=== PATIENT | male | born 1955 | race Caucasian/White ===

== ENCOUNTER 2021-12-13 23:40 | Emergency (ER) | payer MEDICARE, BC ==
[2021-12-14] MEDS ORDERED: ONDANSETRON 4 MG/2 ML VIAL IVP STA (00:03)
[2021-12-14] MEDS ORDERED: SODIUM CHLORIDE 0.9% 1,000 ML IV STA ×2 (00:03)
--- NOTE | 2021-12-14 00:16 | ED ---
Fall HPI - General Chief Complaint: Fall Stated Complaint: Hip Pain Time Seen by Provider: 12/13/21 23:51 Source: patient, EMS, RN notes reviewed, old records reviewed Mode of arrival: EMS - History of Present Illness Initial Comments: This is a 66-year-old male he is presented today for evaluation regards to fall. Patient fell slipping on ice outside prior to arrival. Severe left leg pain and left hip pain. Patient does admit to some mild alcohol use today. Patient has no other complaints his head no loss of consciousness is awake and alert. No prior history of fractures or broken bones as a prior NH but has no other significant medical history MD Complaint: fall, other (Left hip pain) -: minutes(s) Fall From: standing When Fall Occurred: 1 hour [employer] TECH[employer] Fall Witnessed: yes, by family Place Fall Occurred: home Loss of Consciousness: none Prolonged Down Time?: no Symptoms Prior to Fall: none Location - Extremities: Left: Thigh Severity: severe Severity scale (1-10): 9 Quality: sharp Context: tripped/slipped, alcohol use Associated Symptoms: denies - Related Data Allergies Allergy/AdvReac Type Severity Reaction Status Date / Time No Known Allergies Allergy Verified 12/13/21 23:49 Review of Systems ROS Statement: Those systems with pertinent positive or pertinent negative responses have been documented in the HPI. ROS Other: All systems not noted in ROS Statement are negative. Past Medical History Past Medical History: Myocardial Infarction ([place]) History of Any Multi-Drug Resistant Organisms: None Reported Additional Past Surgical History / Comment(s): knee left Past Psychological History: No Psychological Hx Reported Smoking Status: Current every day smoker Past Alcohol Use History: Occasional General Exam Limitations: physical limitation General appearance: alert, in no apparent distress Head exam: Present: atraumatic, normocephalic, normal inspection Eye exam: Present: normal appearance, PERRL, EOMI. Absent: scleral icterus, conjunctival injection, periorbital swelling ENT exam: Present: normal exam, mucous membranes moist Neck exam: Present: normal inspection. Absent: tenderness, meningismus, lymphadenopathy Respiratory exam: Present: normal lung sounds bilaterally. Absent: respiratory distress, wheezes, rales, rhonchi, stridor Cardiovascular Exam: Present: regular rate, normal rhythm, normal heart sounds. Absent: systolic murmur, diastolic murmur, rubs, gallop, clicks GI/Abdominal exam: Present: soft, normal bowel sounds. Absent: distended, tenderness, guarding, rebound, rigid Extremities exam: Present: normal inspection, full ROM, normal capillary refill. Absent: tenderness, pedal edema, joint swelling, calf tenderness Back exam: Present: normal inspection Neurological exam: Present: alert, oriented X3, CN II-XII intact Psychiatric exam: Present: normal affect, normal mood Skin exam: Present: warm, dry, intact, normal color. Absent: rash Course Vital Signs 12/13/21 12/14/21 23:49 01:33 Temperature 97.5 F L Pulse Rate 97 92 Respiratory 22 20 Rate Blood Pressure 103/76 154/92 O2 Sat by Pulse 92 L 98 Oximetry - Reevaluation(s) Reevaluation #1: 12/14/21 00:17 Medical record is reviewed 12/14/21 00:17 Patient refusing pain medication also refused pain medication from EMS Reevaluation #2: 12/14/21 01:50 Patient originally was not requiring pain medication but states pain started to get worse Pain now improved Reevaluation #3: 12/14/21 01:50 Patient informed of results and questions answered - Consultations Consultation #1: Spoke with [facility] regarding transfer, they do agree to accept transfer with orthopedics and the emergency department Medical Decision Making - Lab Data Result diagrams: 12/14/21 01:28 Lab Results 12/14/21 Range/Units 01:28 WBC 13.2 H (3.8-10.6) k/uL RBC 4.19 L (4.30-5.90) m/uL Hgb 14.0 (13.0-17.5) gm/dL Hct 41.9 (39.0-53.0) % MCV 100.1 H (80.0-100.0) fL MCH 33.5 (25.0-35.0) pg MCHC 33.5 (31.0-37.0) g/dL RDW 12.9 (11.5-15.5) % Plt Count 222 (150-450) k/uL MPV 7.4 Neutrophils % 87 % Lymphocytes % 9 % Monocytes % 3 % Eosinophils % 1 % Basophils % 0 % Neutrophils # 11.4 H (1.3-7.7) k/uL Lymphocytes # 1.1 (1.0-4.8) k/uL Monocytes # 0.4 (0-1.0) k/uL Eosinophils # 0.1 (0-0.7) k/uL Basophils # 0.0 (0-0.2) k/uL - EKG Data -: EKG Interpreted by Me (EKG is sinus rhythm of 91 MA 166 QRS 114 QTc 434) - Radiology Data Radiology results: report reviewed (Chest x-rays negative for acute disease x- ray left hip as well as computed tomography scan of left hip shows comminuted ac etabular fracture, displaced with hematoma), image reviewed Disposition Clinical Impression: Fall, Left acetabular fracture Disposition: OTHER INSTITUTION NOT DEFINED Condition: Good Is patient prescribed a controlled substance at d/c from ED?: No Referrals: Lizzette Coon MD [Primary Care Provider] - 1-2 days - Out of Hospital Transfer - Req. Specs Out of Hospital Transfer - Requested Specifics: Other Emergency Center ([facility])
--- NOTE | 2021-12-14 00:45 | XR ---
EXAMINATION TYPE: XR chest 1V DATE OF EXAM: 12/14/2021 COMPARISON: NONE HISTORY: Fall. Pain. TECHNIQUE: 2 views AP FINDINGS: Heart appears enlarged. There is no obvious heart failure. There is slight coarsening of in terstitial markings. There is no pleural effusion. IMPRESSION: Cardiomegaly. No acute lung disease.
--- NOTE | 2021-12-14 00:47 | XR ---
EXAMINATION TYPE: XR Hip LT and AP Pelvis DATE OF EXAM: 12/14/2021 COMPARISON: NONE HISTORY: Fall. Pain TECHNIQUE: 3 views FINDINGS: There is a fracture through the medial aspect of the left acetabulum. There is medial displ acement of the fragments 8 mm. The sacroiliac joints are intact. The proximal femurs show no fracture . IMPRESSION: Acute intra-articular fracture of the left acetabulum with medial displacement.
[2021-12-14 01:34] VITALS: PULSE 92
--- NOTE | 2021-12-14 01:41 | CT ---
EXAMINATION TYPE: CT pelvis wo con DATE OF EXAM: 12/14/2021 COMPARISON: None HISTORY: Trauma. Pain CT DLP: mGycm Automated exposure control for dose reduction was used. Images obtained from the iliac crest to the subtrochanteric femurs with no contrast. There is comminuted vertical fracture through the medial acetabulum. Fracture line extends through th e left iliac bone to the iliac crest. The sacroiliac joints appear intact. Fracture lines extend to t he articular surface of the left acetabulum. The proximal femurs are intact. There is nondisplaced fr acture left inferior pubic ramus. There is increased density in the left lateral aspect of the pelvis consistent with hematoma that is extraperitoneal and displacing the bladder to the right side. This measures up to 2.8 cm in thickness. IMPRESSION: Comminuted left acetabular fracture with intra-articular extension and fragment displacement up to 10 mm. There is extraperitoneal left pelvic sidewall hematoma. Fracture line also extending through the left iliac crest. Left inferior pubic ramus nondisplaced fracture.
[2021-12-14 01:42] LABS: Basophils % (A) 0 %; Eosinophils # (A) 0.1 k/uL (0-0.7); Eosinophils % (A) 1 %; HCT 41.9 % (39.0-53.0); Lymphocytes # (A) 1.1 k/uL (1.0-4.8); Lymphocytes % (A) 9 %; MCH 33.5 pg (25.0-35.0); MCHC 33.5 g/dL (31.0-37.0); MCV 100.1 fL (80.0-100.0); Mean Platelet Volume 7.4; Monocytes # (A) 0.4 k/uL (0-1.0); Monocytes % (A) 3 %; Neutrophils # (A) 11.4 k/uL (1.3-7.7); Neutrophils % (A) 87 %; Platelet Count 222 k/uL (150-450); RBC 4.19 m/uL (4.30-5.90); RDW 12.9 % (11.5-15.5); WBC 13.2 k/uL (3.8-10.6)
[2021-12-14] MEDS ORDERED: HYDROmorphone 1 MG/ML 1 ML SYRINGE IVP STA ×2 (01:46→02:37)
[2021-12-14 01:53] LABS: ALT 23 U/L (4-49); AST 31 U/L (17-59); African American GFR (CKD) >90 (>60 ml/min/1.73 sqM); Alkaline Phosphatase 57 U/L (38-126); Anion Gap 8 mmol/L; Blood Urea Nitrogen 10 mg/dL (9-20); Calcium 8.1 mg/dL (8.4-10.2); Carbon Dioxide 25 mmol/L (22-30); Chloride 92 mmol/L (98-107); Glucose 101 mg/dL (74-99); INR 1.1 (<1.2); Magnesium 1.7 mg/dL (1.6-2.3); Non-African American GFR(CKD) >90 (>60 ml/min/1.73 sqM); Partial Thromboplastin Time 24.8 sec (22.0-30.0); Phosphorus 3.5 mg/dL (2.5-4.5); Prothrombin Time 11.8 sec (9.0-12.0); Sodium 125 mmol/L (137-145); Total Bilirubin 0.6 mg/dL (0.2-1.3)
[2021-12-14 01:58] LABS: Alcohol 198 mg/dL
[2021-12-14 02:58] VITALS: BP 112/62; RESP 22; TEMP 97.8
== END 2021-12-14 02:49 | disposition other institution (70) ==
LOC: EC 23:40
DX: S32.402A Unspecified fracture of left acetabulum, initial encounter for closed fracture (principal); F17.200 Nicotine dependence, unspecified, uncomplicated; I25.2 Old myocardial infarction; W00.0XXA Fall on same level due to ice and snow, initial encounter
CPT/HCPCS: 36415; 93005; 80053; 83605; 83735; 84100; 84484; 85025; 85610; 85730; 73502; 71045; 72192; 99285; 96374; 96375; 96376; 96361; G0480; J2405; J1170; 80320

== ENCOUNTER 2022-08-19 04:15 | Emergency (ER) | payer MEDICARE, BC ==
[2022-08-19 04:22] VITALS: RESP 16
--- NOTE | 2022-08-19 04:33 | ED ---
General Adult HPI - General Chief complaint: Wound/Laceration Stated complaint: leg bleed Time Seen by Provider: 08/19/22 04:19 Source: patient, EMS, RN notes reviewed, old records reviewed Mode of arrival: EMS Limitations: no limitations - History of Present Illness Initial comments: 66 yo male who presents for evaluation of varicose bleeding patient states he actually scratched a varicose vein on his right calf. He is on blood thinners oh states he was a significant amount of bleeding prior to arrival. Called 911, they were able to apply of pressure dressing and transported to the emergency department. Bleeding controlled at the time of arrival. - Related Data Allergies Allergy/AdvReac Type Severity Reaction Status Date / Time No Known Allergies Allergy Verified 12/13/21 23:49 Review of Systems ROS Statement: Those systems with pertinent positive or pertinent negative responses have been documented in the HPI. ROS Other: All systems not noted in ROS Statement are negative. Past Medical History Past Medical History: Myocardial Infarction ([place]) History of Any Multi-Drug Resistant Organisms: None Reported Additional Past Surgical History / Comment(s): knee left Past Psychological History: No Psychological Hx Reported Smoking Status: Current every day smoker Past Alcohol Use History: Occasional General Exam Limitations: no limitations General appearance: alert, in no apparent distress Head exam: Present: atraumatic, normocephalic Eye exam: Present: normal appearance, PERRL Neck exam: Present: normal inspection. Absent: tenderness, meningismus Respiratory exam: Present: normal lung sounds bilaterally. Absent: respiratory distress, wheezes Cardiovascular Exam: Present: regular rate, normal rhythm GI/Abdominal exam: Present: soft. Absent: distended, tenderness Extremities exam: Present: other (Right calf varicose vein with no active bleeding) Neurological exam: Present: alert, oriented X3, CN II-XII intact. Absent: motor sensory deficit Psychiatric exam: Present: normal affect, normal mood Skin exam: Present: warm, dry Course Vital Signs 08/19/22 08/19/22 04:18 04:22 Temperature 97.7 F 97.8 F Pulse Rate 76 78 Respiratory 16 16 Rate Blood Pressure 116/77 116/77 O2 Sat by Pulse 99 Oximetry Medical Decision Making - Medical Decision Making Per medics dressing removed, no further bleeding, patient observed in the emergency department. Dressing reapplied over the previous site of bleeding. Patient should follow-up with the primary care physician, return with any worsening or changing symptoms. Disposition Clinical Impression: Bleeding from varicose vein Disposition: HOME SELF-CARE Condition: Good Instructions (If sedation given, give patient instructions): Venous Insufficiency (DC) Is patient prescribed a controlled substance at d/c from ED?: No Referrals: Chet Diallo DO [Primary Care Provider] - 1-2 days Time of Disposition: 04:33
[2022-08-19 05:23] VITALS: BP 116/70
[2022-08-19 05:24] VITALS: PULSE 76; TEMP 98.1
== END 2022-08-19 05:28 | disposition home or self-care (01) ==
LOC: EC 04:15
DX: I83.91 Asymptomatic varicose veins of right lower extremity (principal)
CPT/HCPCS: 99283

== ENCOUNTER 2022-08-21 10:41 | Emergency (ER) | payer MEDICARE, BC ==
[2022-08-21 16:04] VITALS: TEMP 97.9
[2022-08-21 16:26] LABS: Albumin 4.4 g/dL (3.5-5.0); Calcium 9.2 mg/dL (8.4-10.2); Total Bilirubin 0.7 mg/dL (0.2-1.3); Total Protein 7.5 g/dL (6.3-8.2)
[2022-08-21 16:31] LABS: Basophils # (A) 0.1 k/uL (0-0.2); Basophils % (A) 1 %; Eosinophils # (A) 0.4 k/uL (0-0.7); Eosinophils % (A) 6 %; HCT 32.5 % (39.0-53.0); HGB 11.1 gm/dL (13.0-17.5); Lymphocytes # (A) 1.1 k/uL (1.0-4.8); Lymphocytes % (A) 15 %; MCHC 34.1 g/dL (31.0-37.0); Mean Platelet Volume 8.4; Monocytes # (A) 0.7 k/uL (0-1.0); Monocytes % (A) 9 %; Neutrophils # (A) 5.2 k/uL (1.3-7.7); Neutrophils % (A) 67 %; Platelet Count 170 k/uL (150-450); RBC 3.57 m/uL (4.30-5.90); RDW 14.7 % (11.5-15.5); WBC 7.7 k/uL (3.8-10.6)
--- NOTE | 2022-08-21 16:46 | ED ---
Extremity Problem HPI - General Chief complaint: Extremity Problem,Nontraumatic Source: patient Mode of arrival: ambulatory Limitations: no limitations - History of Present Illness Initial comments: Please see the paper chart that was started as this is a downtime patient - Related Data Home Medications Medication Instructions Recorded Confirmed Aspirin EC [Ecotrin Low Dose] 81 mg PO DAILY 08/22/22 08/22/22 Atorvastatin [Lipitor] 40 mg PO DAILY 08/22/22 08/22/22 Bumetanide [Bumex] 1 mg PO BID 08/22/22 08/22/22 Clopidogrel [Plavix] 75 mg PO DAILY 08/22/22 08/22/22 Isosorbide Mononitrate ER [Imdur] 30 mg PO DAILY 08/22/22 08/22/22 Losartan [Cozaar] 50 mg PO DAILY 08/22/22 08/22/22 Potassium Chloride [Potassium 10 meq PO DAILY 08/22/22 08/22/22 Chloride ER] Spironolactone [Aldactone] 25 mg PO DAILY 08/22/22 08/22/22 carvediloL [Coreg] 6.25 mg PO BID 08/22/22 08/22/22 Previous Rx's Medication Instructions Recorded HYDROcodone/APAP 5-325MG [[place] 1 tab PO Q4HR PRN 3 Days #18 tab 08/21/22 5-325] Allergies Allergy/AdvReac Type Severity Reaction Status Date / Time No Known Allergies Allergy Verified 08/22/22 12:07 Review of Systems ROS Statement: Those systems with pertinent positive or pertinent negative responses have been documented in the HPI. ROS Other: All systems not noted in ROS Statement are negative. Past Medical History Past Medical History: Myocardial Infarction ([place]) History of Any Multi-Drug Resistant Organisms: None Reported Additional Past Surgical History / Comment(s): knee left Past Psychological History: No Psychological Hx Reported Smoking Status: Current every day smoker Past Alcohol Use History: Occasional General Exam Limitations: no limitations Course Vital Signs 08/21/22 08/21/22 15:57 16:53 Temperature 97.9 F Pulse Rate 81 79 Respiratory 16 18 Rate Blood Pressure 87/64 125/63 O2 Sat by Pulse 97 96 Oximetry Medical Decision Making - Lab Data Result diagrams: 08/21/22 12:50 08/21/22 12:50 Lab Results 08/21/22 08/21/22 08/21/22 Range/Units 12:50 12:50 12:50 WBC 7.7 (3.8-10.6) k/uL RBC 3.57 L (4.30-5.90) m/uL Hgb 11.1 L (13.0-17.5) gm/dL Hct 32.5 L (39.0-53.0) % MCV 91.0 (80.0-100.0) fL MCH 31.0 (25.0-35.0) pg MCHC 34.1 (31.0-37.0) g/dL RDW 14.7 (11.5-15.5) % Plt Count 170 (150-450) k/uL MPV 8.4 Neutrophils % 67 % Lymphocytes % 15 % Monocytes % 9 % Eosinophils % 6 % Basophils % 1 % Neutrophils # 5.2 (1.3-7.7) k/uL Lymphocytes # 1.1 (1.0-4.8) k/uL Monocytes # 0.7 (0-1.0) k/uL Eosinophils # 0.4 (0-0.7) k/uL Basophils # 0.1 (0-0.2) k/uL Sodium 134 L (137-145) mmol/L Potassium 4.0 (3.5-5.1) mmol/L Chloride 95 L (98-107) mmol/L Carbon Dioxide 30 (22-30) mmol/L Anion Gap 9 mmol/L BUN 26 H (9-20) mg/dL Creatinine 1.02 (0.66-1.25) mg/dL Est GFR (CKD-EPI)AfAm 89 (>60 ml/min/1.73 sqM) Est GFR (CKD-EPI)NonAf 77 (>60 ml/min/1.73 sqM) Glucose 97 (74-99) mg/dL Plasma Lactic Acid David 1.1 (0.7-2.0) mmol/L Calcium 9.2 (8.4-10.2) mg/dL Total Bilirubin 0.7 (0.2-1.3) mg/dL AST 34 (17-59) U/L ALT 34 (4-49) U/L Alkaline Phosphatase 121 (38-126) U/L Total Protein 7.5 (6.3-8.2) g/dL Albumin 4.4 (3.5-5.0) g/dL Disposition Clinical Impression: Leg pain, Claudication Disposition: HOME SELF-CARE Condition: Good Instructions (If sedation given, give patient instructions): Leg Pain (ED) Prescriptions: HYDROcodone/APAP 5-325MG [[place] 5-325] 1 tab PO Q4HR PRN 3 Days #18 tab PRN Reason: Pain Is patient prescribed a controlled substance at d/c from ED?: No Referrals: Chet Diallo DO [Primary Care Provider] - 1-2 days Daniel Garcia DO [STAFF PHYSICIAN] - 1-2 days
[2022-08-21 16:55] VITALS: BP 125/63; PULSE 79; RESP 18
--- NOTE | 2022-08-22 08:08 | US ---
EXAMINATION TYPE: US arterial LE multi level DATE OF EXAM: 08/21/2022 2:53 PM CLINICAL HISTORY: Claudication pain. Claudication pain in right leg. Previous smoker, hx hypertension , hyperlipidemia, myocardial infarction at 39 years old with cardiac procedure, heart valve surgery i n May 2022, rest pain in legs. No prior vascular surgery within the legs. Exam is limited due to pt's pain level. Ankle-Brachial Indices: Right: 0.28 Left: 0.50 Toe Brachial Indices: Right: Waveform not definitely seen. Left: Unable to perform left TBI due to pain. Waveform shown. Faint possible Right DP heard, unable to show Right DP waveform. Unable to obtain Left DP pressure due to movement. Left DP waveform shown. Left brachial deferred due to IV. Limitations right popliteal waveform due to movement. IMPRESSION: Brachial brachial indices indicating severe peripheral vascular disease, right [place] left.
== END 2022-08-21 16:56 | disposition home or self-care (01) ==
LOC: EC 10:41
DX: M79.606 Pain in leg, unspecified (principal); I73.9 Peripheral vascular disease, unspecified; I25.2 Old myocardial infarction; F17.200 Nicotine dependence, unspecified, uncomplicated; Z79.899 Other long term (current) drug therapy
CPT/HCPCS: 36415; 80053; 83605; 85025; 93923; 99283

== ENCOUNTER 2022-08-22 07:42 | Inpatient (IN) | payer MEDICARE, BC ==
[2022-08-22] MEDS ORDERED: KETOROLAC 15 MG/ML 1 ML VIAL IVP STA (07:58)
[2022-08-22 08:25] LABS: Albumin 4.3 g/dL (3.5-5.0); Calcium 8.7 mg/dL (8.4-10.2); Potassium 4.4 mmol/L (3.5-5.1); Total Bilirubin 0.5 mg/dL (0.2-1.3); Total Protein 7.2 g/dL (6.3-8.2)
[2022-08-22 08:30] LABS: Basophils % (A) 1 %; Eosinophils # (A) 0.4 k/uL (0-0.7); Eosinophils % (A) 6 %; HCT 31.3 % (39.0-53.0); HGB 10.9 gm/dL (13.0-17.5); Lymphocytes # (A) 1.1 k/uL (1.0-4.8); Lymphocytes % (A) 15 %; MCH 31.8 pg (25.0-35.0); MCHC 34.7 g/dL (31.0-37.0); MCV 91.7 fL (80.0-100.0); Mean Platelet Volume 8.4; Monocytes # (A) 0.8 k/uL (0-1.0); Monocytes % (A) 11 %; Neutrophils # (A) 4.8 k/uL (1.3-7.7); Neutrophils % (A) 65 %; Platelet Count 174 k/uL (150-450); RBC 3.42 m/uL (4.30-5.90); RDW 14.6 % (11.5-15.5); WBC 7.3 k/uL (3.8-10.6)
--- NOTE | 2022-08-22 08:35 | ED ---
General Adult HPI - General Chief complaint: Extremity Problem,Nontraumatic Stated complaint: Leg pain, revisit Time Seen by Provider: 08/22/22 07:45 Source: patient, RN notes reviewed, old records reviewed Mode of arrival: EMS Limitations: no limitations - History of Present Illness Initial comments: This a 66-year-old male who presents emergency Department complaining that he has arterial blockage in his right leg. Patient states he was told that when he came here and had a ultrasound. Patient states he can no longer take the pain. Patient states sometimes to be done because the [place] aren't helping him anymore and he has worsening pain. Patient's been here 3 times in the last 4 days. Patient denies any new symptoms chest worsening symptoms. Patient denies any chest pain difficult breathing shortness of breath. Patient denies any recent fever chills or cough per patient denies headache patient denies numbness weakness. Patient denies lightheadedness or dizziness. - Related Data Previous Rx's Medication Instructions Recorded HYDROcodone/APAP 5-325MG [[place] 1 tab PO Q4HR PRN 3 Days #18 tab 08/21/22 5-325] Allergies Allergy/AdvReac Type Severity Reaction Status Date / Time No Known Allergies Allergy Verified 12/13/21 23:49 Review of Systems ROS Statement: Those systems with pertinent positive or pertinent negative responses have been documented in the HPI. ROS Other: All systems not noted in ROS Statement are negative. Past Medical History Past Medical History: Deep Vein Thrombosis (DVT), Myocardial Infarction (DC) Additional Past Medical History / Comment(s): arterial blockage right leg 08/22/22 History of Any Multi-Drug Resistant Organisms: None Reported Past Surgical History: Orthopedic Surgery Additional Past Surgical History / Comment(s): knee left Past Psychological History: No Psychological Hx Reported Smoking Status: Current every day smoker Past Alcohol Use History: Occasional Past Drug Use History: None Reported General Exam - General Exam Comments Initial Comments: GENERAL: Patient is well-developed and well-nourished. Patient is nontoxic and well- hydrated and is in mild distress. ENT: Neck is soft and supple. No significant lymphadenopathy is noted. Oropharynx is clear. Moist mucous membranes. Neck has full range of motion without eliciting any pain. EYES: The sclera were anicteric and conjunctiva were pink and moist. Extraocular movements were intact and pupils were equal round and reactive to light. Eyelids were unremarkable. PULMONARY: Unlabored respirations. Good breath sounds bilaterally. No audible rales rho nchi or wheezing was noted. CARDIOVASCULAR: There is a regular rate and rhythm without any murmurs gallops or rubs. ABDOMEN: Soft and nontender with normal bowel sounds. SKIN: Skin is clear with no lesions or rashes and otherwise unremarkable. NEUROLOGIC: Patient is alert and oriented x3. Cranial nerves II through XII are grossly intact. Motor and sensory are also intact. Normal speech, volume and content. Symmetrical smile. MUSCULOSKELETAL: DP pulse faintly felt. Patient has slow cap refill of about 4 seconds in the right foot and toes. LYMPHATICS: No significant lymphadenopathy is noted PSYCHIATRIC: Normal psychiatric evaluation. Limitations: no limitations Course Vital Signs 08/22/22 08/22/22 07:44 10:13 Temperature 97.7 F Pulse Rate 75 69 Respiratory 16 16 Rate Blood Pressure 134/65 112/56 O2 Sat by Pulse 95 95 Oximetry Medical Decision Making - Medical Decision Making I reviewed the ultrasound from last visit. Patient is CT angiogram of the aorta of the abdomen and pelvis and had run off. It showed occlusion of the common iliac on the right in the superficial femoral artery on the right. I spoke with Dr. Garcia and he would be on consult for this patient I spoke with and he will admit the patient I'll write admitting orders. - Lab Data Result diagrams: 08/22/22 08:04 08/22/22 08:04 Lab Results 08/22/22 08/22/22 08/22/22 Range/Units 08:04 08:04 08:04 WBC 7.3 (3.8-10.6) k/uL RBC 3.42 L (4.30-5.90) m/uL Hgb 10.9 L (13.0-17.5) gm/dL Hct 31.3 L (39.0-53.0) % MCV 91.7 (80.0-100.0) fL MCH 31.8 (25.0-35.0) pg MCHC 34.7 (31.0-37.0) g/dL RDW 14.6 (11.5-15.5) % Plt Count 174 (150-450) k/uL MPV 8.4 Neutrophils % 65 % Lymphocytes % 15 % Monocytes % 11 % Eosinophils % 6 % Basophils % 1 % Neutrophils # 4.8 (1.3-7.7) k/uL Lymphocytes # 1.1 (1.0-4.8) k/uL Monocytes # 0.8 (0-1.0) k/uL Eosinophils # 0.4 (0-0.7) k/uL Basophils # 0.0 (0-0.2) k/uL Sodium 135 L (137-145) mmol/L Potassium 4.4 (3.5-5.1) mmol/L Chloride 95 L (98-107) mmol/L Carbon Dioxide 29 (22-30) mmol/L Anion Gap 11 mmol/L BUN 32 H (9-20) mg/dL Creatinine 1.40 H (0.66-1.25) mg/dL Est GFR (CKD-EPI)AfAm 61 (>60 ml/min/1.73 sqM) Est GFR (CKD-EPI)NonAf 53 (>60 ml/min/1.73 sqM) Glucose 108 H (74-99) mg/dL Plasma Lactic Acid David 1.1 (0.7-2.0) mmol/L Calcium 8.7 (8.4-10.2) mg/dL Total Bilirubin 0.5 (0.2-1.3) mg/dL AST 31 (17-59) U/L ALT 31 (4-49) U/L Alkaline Phosphatase 110 (38-126) U/L Total Protein 7.2 (6.3-8.2) g/dL Albumin 4.3 (3.5-5.0) g/dL Disposition Clinical Impression: Arterial occlusion Disposition: ADMITTED IP TO THIS HOSP Referrals: Chet Diallo DO [Primary Care Provider] - 1-2 days Time of Disposition: 11:38
--- NOTE | 2022-08-22 10:42 | CT ---
EXAMINATION TYPE: CT angio abd aorta w/Runoff CT DLP: 2859 mGycm, Automated exposure control for dose reduction was used. DATE OF EXAM: 08/22/2022 10:32 AM COMPARISON: CT pelvis 12/06/2021, ultrasound September 07 CLINICAL INDICATION:Male, 66 years old with history of Claudication, Rt leg pain TECHNIQUE: Multiple thin slice sub-millimeter images were obtained through the abdomen, pelvis, and l ower extremities after administration of contrast. 3-D reconstructed images and maximum intensity pr ojection images were obtained of the abdomen, pelvis, and lower extremities. CT Contrast: Contrast used:100 mL of Isovue 370 without and with IV Contrast, Oral contrast used: None FINDINGS: CTA Abdomen and pelvis: No evidence of intramural hematoma on noncontrast imaging. There is distal ao rta aneurysmal dilation with mural thrombus measuring up to 3.0 cm. There is severe others close of t he arterial vasculature and coronary arteries. Appears intact. The origin of the superior mesenteric artery, is patent. The celiac axis has stenosis at the origin secondary to calcified and noncalcified plaque with greater than 70% stenosis. The renal arteries are patent without significant stenosis. T he inferior mesenteric artery is not definitively visualized There is severe calcified and noncalcified plaquing along the course of the left common iliac and ext ernal arteries. The right common iliac artery appears occluded extending approximately to the origin of the femoral a rtery. CTA Lower extremities: Right: Reconstitution as noted above at the femoral common femoral artery with again occlusion of the superficial femoral femoral artery with reconstitution just proximal to the knee. Popliteal artery a ppears patent. There is diminutive appearance of the vessels of the right leg posterior tibial artery crosses the ankle. The anterior tibial artery does not definitely cross the ankle and becomes diminu tive distally. Left: The common femoral artery is patent. Superficial femoral artery is occluded extending just past its origin to the popliteal artery. The popliteal artery appears patent. There is a diminutive appea fadi of the vessels of the leg. The posterior tibial artery crosses the ankle. The left anterior tib ial artery becomes diminutive and does not definitely cross the ankle. LOWER CHEST: No evidence of focal consolidation, pneumothorax or pleural effusion. LIVER: Scattered subcentimeter probable cyst. GALLBLADDER AND BILE DUCTS: Unremarkable. PANCREAS: Unremarkable. SPLEEN: Unremarkable. ADRENAL GLANDS: Unremarkable. KIDNEYS AND URETERS: No evidence of hydronephrosis or renal calculus. The ureters are unremarkable. BLADDER: Unremarkable REPRODUCTIVE: Unremarkable. STOMACH AND BOWEL: No evidence of bowel obstruction. PERITONEUM: No evidence of pneumoperitoneum or free fluid. VASCULATURE: No evidence of aortic aneurysm. MUSCULOSKELETAL: No acute osseous abnormalities, fixation hardware in the left pelvis. Surgical repai r changes to the left knee with ACL repair. LYMPH NODES: No gross evidence for lymphadenopathy. SOFT TISSUE/ABDOMINAL WALL: Fat-containing umbilical hernia. IMPRESSION Right lower extremity: * Occlusion of the right common iliac artery with reconstitution at the femoral artery. * Occlusion of the right superficial femoral artery from the origin with reconstitution just superio r to the popliteal artery. * Posterior tibial artery crosses the right ankle. Right anterior tibial artery becomes diminutive a nd is not definitively crossing ankle. Left lower extremity: * Occlusion of the left superficial femoral artery from the origin with reconstitution at the poplit eal artery. * Posterior tibial artery crosses the left ankle. Left anterior tibial artery becomes diminutive and is not definitively crossing ankle. 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
[2022-08-22] MEDS ORDERED: HYDROmorphone 0.5 MG/0.5 ML SYRINGE IVP STA (11:03)
[2022-08-22] MEDS ORDERED: SODIUM CHLORIDE 0.9% 1,000 ML IV ONE (11:39)
[2022-08-22] MEDS ORDERED: traMADol 50 MG TAB PO PRN (11:56)
[2022-08-22] MEDS ORDERED: NALOXONE 0.4 MG/ML 1 ML VIAL IV PRN (11:56)
[2022-08-22] MEDS ORDERED: MORPHINE SULFATE 4 MG/ML SYRINGE IVP PRN (11:56)
[2022-08-22] MEDS ORDERED: ACETAMINOPHEN TAB 325 MG TAB PO PRN (11:56)
--- NOTE | 2022-08-22 12:15 | P.HPIM ---
History of Present Illness H&P Date: 08/22/22 Chief Complaint: leg pain 66-year-old male with hx of CHF with low EF according to patient, AV replacement, PPM placement, PAD who presents emergency Department for the third time in the last few days with worsening pain in the right leg. Pain worse with walking. He also noticed redness from the right knee down and engorged veins in the leg. Patient states he was told that when he came here and had an arterial ultrasound of the lower extremities which showed GERBER of 0.28 on the right and 0.50 on the left. He came back to the ER as he can no longer take the pain even with norco. Patient denies any other symptoms including chest pain or difficult breathing. No recent fever, chills or cough, no headache, focal numbness or weakness, lightheadedness or dizziness. Of note he used to smoke, quit in March of this year, drinks a few beers twice weekly. Also of note he fractured his pelvis after a fall last November and had some screws placed in the left side of the pelvis. He states he has been going downhill since then. In the ER evaluation revealed normal vital signs, labs were unremarkable except for Cr. 1.4 normal baseline, Na 135, Hgb 10.[address] angiogram of the arterial system in the lower extremities revealed occlusion of the right common iliac artery with reconstitution at the level of the femoral artery, occlusion of the right superficial femoral artery from the origin with reconstitution just superior to the popliteal artery, occlusion of the left superficial femoral artery from the origin with reconstitution just superior to the popliteal a rtery. 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 Review of Systems Complete review of system performed, pertinent positives per HPI, otherwise negative Past Medical History Past Medical History: Deep Vein Thrombosis (DVT), Myocardial Infarction ([place]) Additional Past Medical History / Comment(s): arterial blockage right leg 08/22/22 History of Any Multi-Drug Resistant Organisms: None Reported Past Surgical History: Orthopedic Surgery Additional Past Surgical History / Comment(s): knee left Past Psychological History: No Psychological Hx Reported Smoking Status: Current every day smoker Past Alcohol Use History: Occasional Past Drug Use History: None Reported Medications and Allergies Home Medications Medication Instructions Recorded Confirmed Type HYDROcodone/APAP 5-325MG [[place] 1 tab PO Q4HR PRN 3 Days #18 tab 08/21/22 Rx 5-051] Allergies Allergy/AdvReac Type Severity Reaction Status Date / Time No Known Allergies Allergy Verified 12/13/21 23:49 Physical Exam Vitals: Vital Signs Temp Pulse Resp BP Pulse Ox 08/22/22 10:13 69 16 112/56 95 08/22/22 07:44 97.7 F 75 16 134/65 95 Intake and Output 08/21/22 08/22/22 08/22/22 23:59 06:59 14:59 Other: Weight 86.183 kg Constitutional: No acute distress, conversant, pleasant Eyes:Anicteric sclerae, moist conjunctiva, no lid-lag, PERRLA, ENMT: Oropharynx clear, no erythema, exudates Neck: Supple, FROM, no masses, or JVD, No carotid bruits, No thyromegaly Lungs: Clear to auscultation, Clear to percussion, Normal respiratory effort, no accessory muscle use Cardiovascular: Heart regular in rate and rhythm, No murmurs, gallops, or rubs, 1+ peripheral edema Abdominal: Soft, Nontender, no guarding, rebound or rigidity, Normoactive bowel sounds, No hepatomegaly, No splenomegaly, No palpable mass Skin: Normal temperature, tone, texture, turgor, no induration, No subcutaneous nodules, No rash, lesions, No ulcers Extremities: Right leg redness and swelling, +engorged veins below the right knee. + tenderness. No digital cyanosis, No clubbing. Psychiatric: Alert and oriented to person, place and time, appropriate affect, intact judgement Neuro: Muscles Strength 5/5 in all 4 extremities, Sensation to light touch grossly present throughout, Cranial nerves II-XII grossly intact, no focal sensory deficits Results CBC & Chem 7: 08/22/22 08:04 08/22/22 08:04 Labs: Abnormal Lab Results - Last 24 Hours (Table) 08/22/22 08/22/22 Range/Units 08:04 08:04 RBC 3.42 L (4.30-5.90) m/uL Hgb 10.9 L (13.0-17.5) gm/dL Hct 31.3 L (39.0-53.0) % Sodium 135 L (137-145) mmol/L Chloride 95 L (98-107) mmol/L BUN 32 H (9-20) mg/dL Creatinine 1.40 H (0.66-1.25) mg/dL Glucose 108 H (74-99) mg/dL Assessment and Plan Plan: Right lower extremity claudication with severe peripheral vascular disease, multiple severe arterial occlusions D/w Dr. Garcia in the ER, will consult Start heparin gtt Hold plavix for now ? surgery Continue aspirin Dilaudid prn for pain LIAM Hold bumex and aldactone Hold losartan Avoid nephrotoxic meds Follow cr in am IV fluid Chronic systolic CHF HTN Hyperlipidemia Stable resume meds Admit to inpatient expected length of stay more than 2 midnights
[2022-08-22] MEDS ORDERED: HEPARIN SODIUM 1,000 UN/ML (10ML VL) IV ONE (12:17)
[2022-08-22] MEDS ORDERED: HEPARIN SODIUM 1,000 UN/ML (10ML VL) IV PRN (12:17)
[2022-08-22] MEDS ORDERED: ASPIRIN 325 MG TAB PO STA (12:22)
[2022-08-22] MEDS ORDERED: carvediloL 6.25 MG TAB PO STA (12:22)
[2022-08-22] MEDS ORDERED: ATORVASTATIN 40 MG TAB PO STA (12:23)
[2022-08-22] MEDS ORDERED: ISOSORBIDE MONONITRATE ER 30 MG TAB.ER.24H PO STA (12:23)
[2022-08-22 14:06] LABS: INR 1.1 (<1.2); Partial Thromboplastin Time 24.2 sec (22.0-30.0); Prothrombin Time 12.1 sec (9.0-12.0)
[2022-08-22] MEDS: HEPARIN SOD,PORK IN 0.45% NACL 25,000 UNIT in 0.45% NACL 1 250ML.BAG IV SCH (14:30)
[2022-08-22] MEDS: HYDROmorphone 0.5 MG/0.5 ML SYRINGE IVP PRN ×3 (14:43→22:43)
[2022-08-22] MEDS: carvediloL 6.25 MG TAB PO SCH (20:42)
[2022-08-22] MEDS: HYDROcodone/APAP 5-325MG 1 EACH TAB PO PRN (20:42)
[2022-08-23] MEDS: HYDROcodone/APAP 5-325MG 1 EACH TAB PO PRN ×6 (00:56→23:00)
[2022-08-23] MEDS: HYDROmorphone 0.5 MG/0.5 ML SYRINGE IVP PRN ×6 (03:25→23:52)
[2022-08-23 04:44] LABS: INR 1.1 (<1.2)
[2022-08-23 04:53] LABS: Basophils % (A) 1 %; Eosinophils # (A) 0.4 k/uL (0-0.7); Eosinophils % (A) 8 %; HCT 30.3 % (39.0-53.0); HGB 10.2 gm/dL (13.0-17.5); Lymphocytes # (A) 0.9 k/uL (1.0-4.8); Lymphocytes % (A) 17 %; MCH 31.5 pg (25.0-35.0); MCHC 33.7 g/dL (31.0-37.0); MCV 93.4 fL (80.0-100.0); Mean Platelet Volume 8.1; Monocytes # (A) 0.5 k/uL (0-1.0); Monocytes % (A) 9 %; Neutrophils # (A) 3.5 k/uL (1.3-7.7); Neutrophils % (A) 63 %; Platelet Count 152 k/uL (150-450); RBC 3.25 m/uL (4.30-5.90); RDW 14.6 % (11.5-15.5); WBC 5.5 k/uL (3.8-10.6)
[2022-08-23 04:57] LABS: Partial Thromboplastin Time 103.5 sec (22.0-30.0)
[2022-08-23 05:09] LABS: Albumin 3.7 g/dL (3.5-5.0); Calcium 8.3 mg/dL (8.4-10.2); Magnesium 2.2 mg/dL (1.6-2.3); Potassium 4.3 mmol/L (3.5-5.1); Total Bilirubin 0.4 mg/dL (0.2-1.3); Total Protein 6.3 g/dL (6.3-8.2)
[2022-08-23] MEDS: carvediloL 6.25 MG TAB PO SCH ×2 (06:46→16:40)
[2022-08-23] MEDS: ATORVASTATIN 40 MG TAB PO SCH (07:45)
[2022-08-23] MEDS: ISOSORBIDE MONONITRATE ER 30 MG TAB.ER.24H PO SCH (07:45)
--- NOTE | 2022-08-23 10:03 | P.PN ---
Subjective Progress Note Date: 08/23/22 Principal diagnosis: leg claudication Hospital Course: 66-year-old male with history of systolic CHF, AV replacement, PPM, PVD presented with worsening right leg claudication. CT angiogram showed occlusion of the right common iliac artery with reconstitution at the level of the femoral artery, occlusion of right superficial femoral artery from the origin with reconstitution just superior to the popliteal artery, occlusion of the left superficial femoral artery from the origin with reconstitution just superior to the popliteal artery. 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 Vascular surgery consulted for possible intervention. Subjective: Patient seen and examined at bedside. No acute events overnight. He continues to complain about right lower extremity pain at rest as well as with ambulation. He is also complaining of some lower abdominal pain, but unable to state whether it is with eating or without eating. He denies any chest pain, shortness of breath, diarrhea, constipation or urinary complaints. Pertinent positives and negatives as discussed above, a complete review of systems was performed and all other systems are negative. Vitals Signs Reviewed. General: nontoxic, no distress, appears at stated age Derm: warm, dry Head: atraumatic, normocephalic, symmetric Eyes: EOMI, no lid lag, anicteric sclera Mouth: no lip lesion, mucus membranes moist Cardiovascular: S1S2 reg, no murmur, diminished pulses bilateral lower extremity Lungs: CTA bilateral, no rhonchi, no rales , no accessory muscle use Abdominal: soft, nontender to palpation, no guarding, no appreciable organomegaly Ext: no gross muscle atrophy, trace edema lower extremities bilaterally, tenderness to palpation bilateral lower extremities, no digital cyanosis Neuro: CN II-XI grossly intact, no focal neuro deficits Psych: Alert, oriented, appropriate affect Assessment and Plan: Right lower extremity claudication with severe peripheral vascular disease -Vascular surgery consulted -On heparin drip -Aspirin, statin -plavix held LIAM - resolved -will resume diuretics Chronic systolic CHF Hypertension Dyslipidemia -Home medications reviewed and reconciled DVT ppx: Heparin drip Code status: Full code Anticipated discharge place: Home Anticipated discharge time: 2+ days Objective - Vital Signs Vital signs: Vital Signs Temp 97.5 F L 08/23/22 07:44 Pulse 77 08/23/22 07:44 Resp 20 08/23/22 07:44 BP 159/72 08/23/22 07:44 Pulse Ox 95 08/23/22 07:44 FiO2 Intake & Output 08/22/22 08/23/22 08/23/22 18:59 06:59 18:59 Intake Total 628 186.584 Output Total 100 Balance 628 86.584 Weight 86.183 kg Intake: IV 10 Invasive Line 1 10 Intake, IV Titration 186.584 Amount Heparin Sod,Pork in 0.45% 186.584 NaCl 25,000 unit In 0.45 % NaCl 1 250ml.bag @ 18 UNITS/KG/HR 15.513 mls/hr IV .Q16H7M [facility] Rx#: [id number] Oral 618 Output: Urine 100 Other: Voiding Method Toilet Urinal Urinal - Labs CBC & Chem 7: 08/23/22 03:58 08/23/22 03:58 Labs: Abnormal Lab Results - Last 24 Hours (Table) 08/22/22 08/22/22 08/23/22 Range/Units 13:43 19:29 03:58 RBC 3.25 L (4.30-5.90) m/uL Hgb 10.2 L (13.0-17.5) gm/dL Hct 30.3 L (39.0-53.0) % Lymphocytes # 0.9 L (1.0-4.8) k/uL PT 12.1 H (9.0-12.0) sec APTT 179.2 H* (22.0-30.0) sec Sodium (137-145) mmol/L BUN (9-20) mg/dL Calcium (8.4-10.2) mg/dL 08/23/22 08/23/22 Range/Units 03:58 03:58 RBC (4.30-5.90) m/uL Hgb (13.0-17.5) gm/dL Hct (39.0-53.0) % Lymphocytes # (1.0-4.8) k/uL PT (9.0-12.0) sec APTT 103.5 H* (22.0-30.0) sec Sodium 136 L (137-145) mmol/L BUN 37 H (9-20) mg/dL Calcium 8.3 L (8.4-10.2) mg/dL
[2022-08-23] MEDS: HEPARIN SOD,PORK IN 0.45% NACL 25,000 UNIT in 0.45% NACL 1 250ML.BAG IV SCH (10:31)
[2022-08-23] MEDS: BUMETANIDE 1 MG TAB PO SCH ×2 (10:32→19:40)
[2022-08-23] MEDS: SPIRONOLACTONE 25 MG TAB PO SCH (10:32)
--- NOTE | 2022-08-23 13:09 | P.GSCN ---
History of Present Illness Consult date: 08/23/22 Reason for Consult: Right lower extremity arterial occlusion Requesting physician: Holden Castillo History of present illness: This is A pleasant 66-year-old male who presented to the emergency department with complaints of increased on right lower extremity pain that he states has worsened over the last couple weeks duration. As a past medical history of coronary artery disease who recently underwent heart valve replacement as well as pacemaker implantation approximately one month ago, DVT, [place], former smoker an d peripheral arterial disease. The patient states he follows with Dr. Lin [facility]. 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 Patient is post an appointment with him next week for follow-up for right lower extremity pain, however patient states he was unable to tolerate the pain any longer. He states pain is worse at rest. His been off-and-on for several weeks duration, but has gotten worse over last off 1-2 weeks duration. Patient was started on a heparin drip and remains on it. Home meds include low-dose aspirin, Plavix 75 mg daily and Lipitor 40 mg daily. He is currently denying any chest pain or shortness of breath. He states he has pain with ambulating but pain is worse in the right lower extremity with lying in bed. States is having difficulty sleeping due to the pain. Vascular surgery was consulted for right lower extremity arterial occlusion Patient had a CT angiogram abdominal aorta with runoff reporting occlusion of the right common iliac artery with reconstitution at the femoral artery, occ lusion of the right SFA from origin with reconstitution just superior to the popliteal artery, posterior tibial artery crosses right ankle. Right anterior tibial artery becomes diminutive and not definitively crossing ankle. Left lower extremity occlusion of the left SFA from the origin of with reconstitution at the popliteal artery, posterior tibial artery cross left ankle. Left anterior tibial artery becomes diminutive and is not definitely crossing the ankle Review of Systems A 14 point review systems was completed all pertinent positives and negatives as stated in the HPI. Past Medical History Past Medical History: Deep Vein Thrombosis (DVT), Myocardial Infarction ([place]) Additional Past Medical History / Comment(s): arterial blockage right leg 08/22/22, [place] at 39 no stenting Last Myocardial Infarction Date:: 1993 History of Any Multi-Drug Resistant Organisms: None Reported Past Surgical History: AICD, Orthopedic Surgery Additional Past Surgical History / Comment(s): knee left, pelvic fx surgery, TAVR 06/09/2022 Past Anesthesia/Blood Transfusion Reactions: No Reported Reaction Type of Cardiac Device: AICD Device Placement Date:: 06/10/2022 Past Psychological History: No Psychological Hx Reported Smoking Status: Former smoker Past Alcohol Use History: Occasional Past Drug Use History: None Reported - Past Family History Father Family Medical History: Congestive Heart Failure (CHF) Mother Family Medical History: No Reported History Medications and Allergies Home Medications Medication Instructions Recorded Confirmed Type HYDROcodone/APAP 5-325MG [[place] 1 tab PO Q4HR PRN 3 Days #18 tab 08/21/22 08/22/22 Rx 5-325] Aspirin EC [Ecotrin Low Dose] 81 mg PO DAILY 08/22/22 08/22/22 History Atorvastatin [Lipitor] 40 mg PO DAILY 08/22/22 08/22/22 History Bumetanide [Bumex] 1 mg PO BID 08/22/22 08/22/22 History Clopidogrel [Plavix] 75 mg PO DAILY 08/22/22 08/22/22 History Isosorbide Mononitrate ER [Imdur] 30 mg PO DAILY 08/22/22 08/22/22 History Losartan [Cozaar] 50 mg PO DAILY 08/22/22 08/22/22 History Potassium Chloride [Potassium 10 meq PO DAILY 08/22/22 08/22/22 History Chloride ER] Spironolactone [Aldactone] 25 mg PO DAILY 08/22/22 08/22/22 History carvediloL [Coreg] 6.25 mg PO BID 08/22/22 08/22/22 History Allergies Allergy/AdvReac Type Severity Reaction Status Date / Time No Known Allergies Allergy Verified 08/22/22 12:07 Surgical - Exam Vital Signs Temp Pulse Resp BP Pulse Ox 97.7 F 75 16 134/65 95 08/22/22 07:44 08/22/22 07:44 08/22/22 07:44 08/22/22 07:44 08/22/22 07:44 General appearance: The patient is alert, oriented, appears in no acute distress. HET: Head is normocephalic and atraumatic. Pupils are equal and reactive. Neck: Supple without lymphadenopathy. Trachea midline. Heart: S1 S2. Regular rate and rhythm. Lungs: Clear to auscultation bilaterally. Abdomen: Soft, nontender, nondistended. Extremities: Bilateral lower extremity swelling. Right lower extremity with n onpalpable pulses. Bilateral lower extremities are pink and warm. Capillary refill intact, patient is very tender to palpation in the right foot and toes. Sensorimotor is intact. Left lower extremity with palpable femoral and DP pulses. Neurological: No focal deficits. Alert and oriented 3. Results - Labs 08/23/22 03:58 08/23/22 03:58 Abnormal Lab Results - Last 24 Hours (Table) 08/22/22 08/22/22 08/23/22 Range/Units 13:43 19:29 03:58 RBC 3.25 L (4.30-5.90) m/uL Hgb 10.2 L (13.0-17.5) gm/dL Hct 30.3 L (39.0-53.0) % Lymphocytes # 0.9 L (1.0-4.8) k/uL PT 12.1 H (9.0-12.0) sec APTT 179.2 H* (22.0-30.0) sec Sodium (137-145) mmol/L BUN (9-20) mg/dL Calcium (8.4-10.2) mg/dL 08/23/22 08/23/22 Range/Units 03:58 03:58 RBC (4.30-5.90) m/uL Hgb (13.0-17.5) gm/dL Hct (39.0-53.0) % Lymphocytes # (1.0-4.8) k/uL PT (9.0-12.0) sec APTT 103.5 H* (22.0-30.0) sec Sodium 136 L (137-145) mmol/L BUN 37 H (9-20) mg/dL Calcium 8.3 L (8.4-10.2) mg/dL Diabetes panel 08/23/22 Range/Units 03:58 Sodium 136 L (137-145) mmol/L Potassium 4.3 (3.5-5.1) mmol/L Chloride 102 (98-107) mmol/L Carbon Dioxide 28 (22-30) mmol/L BUN 37 H (9-20) mg/dL Creatinine 1.13 (0.66-1.25) mg/dL Glucose 89 (74-99) mg/dL Calcium 8.3 L (8.4-10.2) mg/dL AST 27 (17-59) U/L ALT 27 (4-49) U/L Alkaline Phosphatase 101 (38-126) U/L Total Protein 6.3 (6.3-8.2) g/dL Albumin 3.7 (3.5-5.0) g/dL Calcium panel 08/23/22 Range/Units 03:58 Calcium 8.3 L (8.4-10.2) mg/dL Albumin 3.7 (3.5-5.0) g/dL Pituitary panel 08/23/22 Range/Units 03:58 Sodium 136 L (137-145) mmol/L Potassium 4.3 (3.5-5.1) mmol/L Chloride 102 (98-107) mmol/L Carbon Dioxide 28 (22-30) mmol/L BUN 37 H (9-20) mg/dL Creatinine 1.13 (0.66-1.25) mg/dL Glucose 89 (74-99) mg/dL Calcium 8.3 L (8.4-10.2) mg/dL Adrenal panel 08/23/22 Range/Units 03:58 Sodium 136 L (137-145) mmol/L Potassium 4.3 (3.5-5.1) mmol/L Chloride 102 (98-107) mmol/L Carbon Dioxide 28 (22-30) mmol/L BUN 37 H (9-20) mg/dL Creatinine 1.13 (0.66-1.25) mg/dL Glucose 89 (74-99) mg/dL Calcium 8.3 L (8.4-10.2) mg/dL Total Bilirubin 0.4 (0.2-1.3) mg/dL AST 27 (17-59) U/L ALT 27 (4-49) U/L Alkaline Phosphatase 101 (38-126) U/L Total Protein 6.3 (6.3-8.2) g/dL Albumin 3.7 (3.5-5.0) g/dL Assessment and Plan Assessment: 1. Right lower extremity ischemic rest pain 2. Occlusion of the right common iliac artery and right SFA 3. Occlusion of the left SFA 4. History coronary artery disease, recent heart valve replacement and pacemaker implantation 5. Former smoker Plan: 1. Continue symptomatic and supportive care 2. Continue heparin drip 3. Patient may have heart healthy diet Patient has been following with at [facility], Dr. Lin was notified by phone that the patient is here and patient status. He is requesting patient be transferred to [facility] for further management and continuity of care. We recommend transfer to patient's current quill layer. This has been discussed with sound physician with recommendation to transfer to [facility], they agreed to initiate transfer. Thank you for this consultation, we will continue to follow. The impression and plan of care has been dictated as directed. Dr. Martinez I performed a history and examination of this patient, discussed the same with the dictator. I agree with the dictator's note ,documented as a scribe. Any additional findings or plans will be noted.
--- NOTE | 2022-08-23 13:28 | US ---
EXAMINATION TYPE: US venous duplex for deep vein thrombosis of the right lower extremity. DATE OF EXAM: 08/22/2022 COMPARISON: None CLINICAL HISTORY: TECHNIQUE: Multiple sonographic images of the right lower extremity venous vasculature were obtained with color Doppler and graded compression. FINDINGS: The common femoral, femoral, popliteal, saphenous vein, and calf veins do not demonstrate evidence fo r filling defect to suggest deep vein thrombosis. There is appropriate color Doppler flow, augmentati on and compression of the vessels. IMPRESSION: No evidence of deep vein thrombus of the right lower extremity.
[2022-08-24] MEDS: HYDROmorphone 0.5 MG/0.5 ML SYRINGE IVP PRN ×4 (04:19→16:42)
[2022-08-24] MEDS: carvediloL 6.25 MG TAB PO SCH ×2 (05:27→16:41)
[2022-08-24] MEDS: HYDROcodone/APAP 5-325MG 1 EACH TAB PO PRN ×3 (05:27→13:55)
[2022-08-24] MEDS: HEPARIN SOD,PORK IN 0.45% NACL 25,000 UNIT in 0.45% NACL 1 250ML.BAG IV SCH ×2 (07:13→08:24)
[2022-08-24] MEDS: SPIRONOLACTONE 25 MG TAB PO SCH (08:25)
[2022-08-24] MEDS: ISOSORBIDE MONONITRATE ER 30 MG TAB.ER.24H PO SCH (08:25)
[2022-08-24] MEDS: ATORVASTATIN 40 MG TAB PO SCH (08:25)
[2022-08-24] MEDS: BUMETANIDE 1 MG TAB PO SCH (08:25)
[2022-08-24] MEDS ORDERED: LOSARTAN 50 MG TAB PO SCH (09:00)
--- NOTE | 2022-08-24 10:31 | P.PN ---
Subjective Progress Note Date: 08/24/22 Principal diagnosis: Right lower extremity ischemic rest pain She was seen and examined today as a follow-up. He still complaints of pain in the right lower extremity. Painful with walking throughout the night and morning. Still able to have full range of motion right lower extremity, able to wiggle his toes. Denies any fever, chills, body aches, shortness of breath or chest pain.he remains on a heparin drip. [facility] transfer has been initiated and accepted; he is currently awaiting a bed. Objective - Vital Signs Vital signs: Vital Signs Temp 97.6 F 08/24/22 08:19 Pulse 79 08/24/22 08:19 Resp 20 08/24/22 08:19 BP 124/62 08/24/22 08:19 Pulse Ox 96 08/24/22 08:19 FiO2 Intake & Output 08/23/22 08/24/22 08/24/22 18:59 06:59 18:59 Intake Total 418.955 344.317 Output Total 1600 875 Balance -1181.045 -875 344.317 Intake: Intake, IV Titration 38.955 226.317 Amount Heparin Sod,Pork in 0.45% 38.955 226.317 NaCl 25,000 unit In 0.45 % NaCl 1 250ml.bag @ 18 UNITS/KG/HR 15.513 mls/hr IV .Q16H7M [facility] Rx#: [id number] Oral 380 118 Output: Urine 1600 875 Other: Voiding Method Urinal Urinal Urinal - Exam General appearance: The patient is alert, oriented, appears in no acute distress. HET: Head is normocephalic and atraumatic. Pupils are equal and reactive. Neck: Supple without lymphadenopathy. Trachea midline. Heart: S1 S2. Regular rate and rhythm. Lungs: Clear to auscultation bilaterally. Abdomen: Soft, nontender, nondistended. Extremities: Bilateral lower extremity swelling. Right lower extremity with nonpalpable pulses. Bilateral lower extremities are pink and warm. Capillary refill intact, patient is very tender to palpation in the right foot and toes. Sensorimotor is intact. Left lower extremity with palpable femoral and DP pulses. Neurological: No focal deficits. Alert and oriented 3. - Labs CBC & Chem 7: 08/23/22 03:58 08/23/22 03:58 Labs: Abnormal Lab Results - Last 24 Hours (Table) 08/23/22 08/24/22 Range/Units 12:02 09:32 APTT 64.4 H 63.4 H (22.0-30.0) sec Assessment and Plan Assessment: 1. Right lower extremity ischemic rest pain 2. Occlusion of the right common iliac artery and right SFA 3. Occlusion of the left SFA 4. History coronary artery disease, recent heart valve replacement and pacemaker implantation 5. Former smoker Plan: 1. Continue symptomatic and supportive care 2. Continue heparin drip 3. Patient may have heart healthy diet Patient has been following with at [facility], Dr. Lin was noti fied by phone that the patient is here and patient status. He is requesting patient be transferred to [facility] for further management and continuity of care. Transfer has been initiated and accepted. Patient waiting on a bed. Continue current treatment. Thank you for this consultation, we will continue to follow. The impression and plan of care has been dictated as directed. Dr. Garcia I performed a history and examination of this patient, discussed the same with the dictator. I agree with the dictator's note ,documented as a scribe. Any additional findings or plans will be noted.
[2022-08-24 11:00] VITALS: RESP 18
--- NOTE | 2022-08-24 12:28 | P.PN ---
Subjective Progress Note Date: 08/24/22 Principal diagnosis: leg claudication Hospital Course: 66-year-old male with history of systolic CHF, AV replacement, PPM, PVD presented with worsening right leg claudication. CT angiogram showed occlusion of the right common iliac artery with reconstitution at the level of the femoral artery, occlusion of right superficial femoral artery from the origin with reconstitution just superior to the popliteal artery, occlusion of the left superficial femoral artery from the origin with reconstitution just superior to the popliteal artery. 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 Vascular surgery consulted. Patient to be transferred to [facility] for further intervention with Dr. Lin. Subjective: Patient seen and examined at bedside. No acute events overnight. He continues to complain about right lower extremity pain at rest as well as with ambulation. He denies any chest pain, shortness of breath, diarrhea, constipation or urinary complaints. Has occasional abdominal pain. Pertinent positives and negatives as discussed above, a complete review of systems was performed and all other systems are negative. Vitals Signs Reviewed. General: nontoxic, no distress, appears at stated age Derm: warm, dry Head: atraumatic, normocephalic, symmetric Eyes: EOMI, no lid lag, anicteric sclera Mouth: no lip lesion, mucus membranes moist Cardiovascular: S1S2 reg, no murmur, diminished pulses bilateral lower extremity Lungs: CTA bilateral, no rhonchi, no rales , no accessory muscle use Abdominal: soft, nontender to palpation, no guarding, no appreciable organomegaly Ext: no gross muscle atrophy, trace edema lower extremities bilaterally, tenderness to palpation bilateral lower extremities, no digital cyanosis Neuro: CN II-XI grossly intact, no focal neuro deficits Psych: Alert, oriented, appropriate affect Assessment and Plan: Right lower extremity claudication with severe peripheral vascular disease -Vascular surgery consulted -On heparin drip -Aspirin, statin -plavix held -patient to be transferred to [facility] when bed available LIAM - resolved -back on diuretics Chronic systolic CHF Hypertension Dyslipidemia -Home medications reviewed and reconciled DVT ppx: Heparin drip Code status: Full code Anticipated discharge place: Transfer to [facility] Anticipated discharge time: likely today Objective - Vital Signs Vital signs: Vital Signs Temp 97.6 F 08/24/22 08:19 Pulse 68 08/24/22 11:00 Resp 18 08/24/22 11:00 BP 132/63 08/24/22 11:00 Pulse Ox 97 08/24/22 11:00 FiO2 Intake & Output 08/23/22 08/24/22 08/24/22 18:59 06:59 18:59 Intake Total 418.955 344.317 Output Total 1600 875 300 Balance -1181.045 -875 44.317 Intake: Intake, IV Titration 38.955 226.317 Amount Heparin Sod,Pork in 0.45% 38.955 226.317 NaCl 25,000 unit In 0.45 % NaCl 1 250ml.bag @ 18 UNITS/KG/HR 15.513 mls/hr IV .Q16H7M [facility] Rx#: [id number] Oral 380 118 Output: Urine 1600 875 300 Other: Voiding Method Urinal Urinal Urinal - Labs CBC & Chem 7: 08/23/22 03:58 08/23/22 03:58 Labs: Abnormal Lab Results - Last 24 Hours (Table) 08/23/22 08/24/22 Range/Units 12:02 09:32 APTT 64.4 H 63.4 H (22.0-30.0) sec
--- NOTE | 2022-08-24 15:36 | P.DS ---
Providers Date of admission: 08/22/22 11:40 Expected date of discharge: 08/23/22 Attending physician: Rohit Lott MD Consults: 08/22/22 11:39 Consult Physician Urgent Consulting Provider: Daniel Garcia Consult Reason/Comments: Arterial occlusion Do you want consulting provider notified?: Yes Primary care [facility]: [facility] Course: Discharge Diagnosis: Right lower extremity ischemic rest pain Peripheral arterial disease History of coronary artery disease Recent heart valve replacement Recent Pacemaker implantation Hospital Course: 66-year-old male with history of systolic CHF, AV replacement, PPM, PVD presented with worsening right leg claudication. CT angiogram showed occlusion of the right common iliac artery with reconstitution at the level of the femoral artery, occlusion of right superficial femoral artery from the origin with reconstitution just superior to the popliteal artery, occlusion of the left superficial femoral artery from the origin with reconstitution just superior to the popliteal artery. 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 Vascular surgery consulted. Patient started on heparin gtt. Patient to be transferred to [facility] under the care of Dr. Lin. Patient seen and examined at bedside. Vital signs reviewed and stable. General: nontoxic, no distress, appears at stated age Derm: warm, dry Head: atraumatic, normocephalic, symmetric Eyes: EOMI, no lid lag, anicteric sclera Mouth: no lip lesion, mucus membranes moist Cardiovascular: S1S2 reg, no murmur, diminished pulses bilateral lower extremity Lungs: CTA bilateral, no rhonchi, no rales , no accessory muscle use Abdominal: soft, nontender to palpation, no guarding, no appreciable organomegaly Ext: no gross muscle atrophy, trace edema lower extremities bilaterally, tenderness to palpation bilateral lower extremities, no digital cyanosis Neuro: CN II-XI grossly intact, no focal neuro deficits Psych: Alert, oriented, appropriate affe A total of 35 minutes of time were spent preparing this complex discharge summary. Patient was discharged on 08/24/22 at 15:35. Patient Condition at Discharge: Stable Plan - Discharge Summary Discharge Rx Participant: Yes New Discharge Prescriptions: New Spironolactone [Aldactone] 25 mg PO DAILY tab Atorvastatin [Lipitor] 40 mg PO DAILY tab HYDROcodone/APAP 5-325MG [[place] 5-325] 1 each PO Q4HR PRN tab PRN Reason: Severe Pain Bumetanide [BUMEX] 1 mg PO BID tab carvediloL [Coreg] 6.25 mg PO BID-W/MEALS tab Losartan [Cozaar] 50 mg PO DAILY tab Isosorbide Mononitrate ER [Imdur] 30 mg PO DAILY tab Acetaminophen Tab [Tylenol] 650 mg PO Q6HR PRN tab PRN Reason: Mild Pain Or Fever > 100.5 traMADol HCl [Ultram] 50 mg PO Q6H PRN tab PRN Reason: Moderate Pain (Scale 4 To 6) Discontinued HYDROcodone/APAP 5-325MG [[place] 5-325] 1 tab PO Q4HR PRN 3 Days #18 tab PRN Reason: Pain Potassium Chloride [Potassium Chloride ER] 10 meq PO DAILY Isosorbide Mononitrate ER [Imdur] 30 mg PO DAILY Clopidogrel [Plavix] 75 mg PO DAILY Spironolactone [Aldactone] 25 mg PO DAILY carvediloL [Coreg] 6.25 mg PO BID Losartan [Cozaar] 50 mg PO DAILY Bumetanide [Bumex] 1 mg PO BID Atorvastatin [Lipitor] 40 mg PO DAILY No Action Aspirin EC [Ecotrin Low Dose] 81 mg PO DAILY Discharge Medication List Aspirin EC [Ecotrin Low Dose] 81 mg PO DAILY 08/22/22 [History] Acetaminophen Tab [Tylenol] 650 mg PO Q6HR PRN tab 08/24/22 [Rx] Atorvastatin [Lipitor] 40 mg PO DAILY tab 08/24/22 [Rx] Bumetanide [BUMEX] 1 mg PO BID tab 08/24/22 [Rx] HYDROcodone/APAP 5-325MG [[place] 5-325] 1 each PO Q4HR PRN tab 08/24/22 [Rx] Isosorbide Mononitrate ER [Imdur] 30 mg PO DAILY tab 08/24/22 [Rx] Losartan [Cozaar] 50 mg PO DAILY tab 08/24/22 [Rx] Spironolactone [Aldactone] 25 mg PO DAILY tab 08/24/22 [Rx] carvediloL [Coreg] 6.25 mg PO BID-W/MEALS tab 08/24/22 [Rx] traMADol HCl [Ultram] 50 mg PO Q6H PRN tab 08/24/22 [Rx] Follow up Appointment(s)/Referral(s): Chet Diallo DO [Primary Care Provider] - 1-2 days Discharge Disposition: OTHER INSTITUTION NOT DEFINED
[2022-08-24 15:57] VITALS: BP 141/74; PULSE 73; TEMP 97.5
== END 2022-08-24 17:25 | disposition short-term general hospital (02) | DRG 300 ==
LOC: EC 07:42 → 3SCARD 11:40
PROVIDERS: ADMIT Internal Medicine; ATTEND Internal Medicine
DX: I70.221 Atherosclerosis of native arteries of extremities with rest pain, right leg (principal); I50.22 Chronic systolic (congestive) heart failure; N17.9 Acute kidney failure, unspecified; I70.202 Unspecified atherosclerosis of native arteries of extremities, left leg; E78.5 Hyperlipidemia, unspecified; F17.210 Nicotine dependence, cigarettes, uncomplicated; I11.0 Hypertensive heart disease with heart failure; I25.10 Atherosclerotic heart disease of native coronary artery without angina pectoris; I25.2 Old myocardial infarction; Z87.81 Personal history of (healed) traumatic fracture; Z91.81 History of falling; Z79.02 Long term (current) use of antithrombotics/antiplatelets; Z79.82 Long term (current) use of aspirin; Z79.899 Other long term (current) drug therapy; Z82.49 Family history of ischemic heart disease and other diseases of the circulatory system; Z95.2 Presence of prosthetic heart valve; Z95.810 Presence of automatic (implantable) cardiac defibrillator; Z28.21 Immunization not carried out because of patient refusal; Z86.718 Personal history of other venous thrombosis and embolism
CPT/HCPCS: 36415; 75635; 80053; 83605; 83735; 85025; 85610; 85730; 87635

== ENCOUNTER 2022-09-10 08:29 | Observation (INO) | payer MEDICARE, BC ==
--- NOTE | 2022-09-10 08:44 | ED ---
Extremity Problem HPI - General Chief complaint: Extremity Problem,Nontraumatic Stated complaint: L. Leg Pain Time Seen by Provider: 09/10/22 08:32 Source: EMS, RN notes reviewed, old records reviewed Mode of arrival: EMS Limitations: no limitations - History of Present Illness Initial comments: 67-year-old well-appearing male presents to the emergency room via EMS with complaints of left groin pain. Patient states that he underwent bilateral femoral stent placement with Dr. Garcia on August 24. Last night he felt a pop in his left groin and has had increased pain since. Patient states he is on blood thinners. MD Complaint: extremity pain (left groin) -: hour(s) Location: left Severity scale (1-10): 4 Quality: aching Consistency: constant Improves with: immobilization, rest Worsens with: palpation, other (movement) Associated Symptoms: denies other symptoms - Related Data Home Medications Medication Instructions Recorded Confirmed Aspirin EC [Ecotrin Low Dose] 81 mg PO DAILY 08/22/22 08/22/22 Previous Rx's Medication Instructions Recorded Acetaminophen Tab [Tylenol] 650 mg PO Q6HR PRN tab 08/24/22 Atorvastatin [Lipitor] 40 mg PO DAILY tab 08/24/22 Bumetanide [BUMEX] 1 mg PO BID tab 08/24/22 HYDROcodone/APAP 5-325MG [[place] 1 each PO Q4HR PRN tab 08/24/22 5-325] Isosorbide Mononitrate ER [Imdur] 30 mg PO DAILY tab 08/24/22 Losartan [Cozaar] 50 mg PO DAILY tab 08/24/22 Spironolactone [Aldactone] 25 mg PO DAILY tab 08/24/22 carvediloL [Coreg] 6.25 mg PO BID-W/MEALS tab 08/24/22 traMADol HCl [Ultram] 50 mg PO Q6H PRN tab 08/24/22 Allergies Allergy/AdvReac Type Severity Reaction Status Date / Time No Known Allergies Allergy Verified 08/22/22 12:07 Review of Systems ROS Statement: Those systems with pertinent positive or pertinent negative responses have been documented in the HPI. ROS Other: All systems not noted in ROS Statement are negative. Past Medical History Past Medical History: Deep Vein Thrombosis (DVT), Myocardial Infarction ([place]) Additional Past Medical History / Comment(s): arterial blockage right leg 08/22/22, [place] at 39 no stenting Last Myocardial Infarction Date:: 1993 History of Any Multi-Drug Resistant Organisms: None Reported Past Surgical History: AICD, Orthopedic Surgery Additional Past Surgical History / Comment(s): knee left, pelvic fx surgery, TAVR 06/09/2022, leg stents bilateral Past Anesthesia/Blood Transfusion Reactions: No Reported Reaction Type of Cardiac Device: AICD Device Placement Date:: 06/10/2022 Past Psychological History: No Psychological Hx Reported Smoking Status: Former smoker Past Alcohol Use History: Occasional Past Drug Use History: None Reported - Past Family History Father Family Medical History: Congestive Heart Failure (CHF) Mother Family Medical History: No Reported History General Exam Limitations: no limitations General appearance: alert Head exam: Present: atraumatic Eye exam: Absent: scleral icterus, conjunctival injection, periorbital swelling Respiratory exam: Present: normal lung sounds bilaterally. Absent: respiratory distress, accessory muscle use Cardiovascular Exam: Present: regular rate GI/Abdominal exam: Present: soft. Absent: tenderness Left Hip exam: Present: tenderness (groin), swelling (Surgical incision intactc, no erythema or drainage, swelling consistent with hematoma). Absent: ecchymosis, crepitus, erythema, external rotation, internal rotation, shortening Neurovascular tendon exam: Absent: abnormal cap refill, extremity cold to touch, pallor, foot drop Neurological exam: Present: alert, oriented X3 Psychiatric exam: Present: normal affect, normal mood Skin exam: Present: warm, dry, normal color. Absent: cyanosis, diaphoretic, petechiae, pallor Course Vital Signs 09/10/22 09/10/22 08:31 11:23 Temperature 97 F L Pulse Rate 77 87 Respiratory 18 18 Rate Blood Pressure 153/75 144/63 O2 Sat by Pulse 99 97 Oximetry - Reevaluation(s) Reevaluation #1: 09/10/22 10:[address] Garcia who recommended CT angiogram, consult to Dr. Canela to see patient in ER. Time: 10:00 Reevaluation #2: 09/10/22 10:[address] Canela who will come see patient in the ER Time: 10:51 Medical Decision Making - Medical Decision Making Patient presents with left groin pain status post femoral stent placement Nove mber 8. Bilateral lower extremities are pink and warm. There is a left groin hematoma however patient's pain is distal to the site. No evidence of bleeding or drainage. He is on Plavix daily. Ultrasound left groin reviewed by me shows a complex fluid collection. Radiologist interpretation complex fluid collection measuring 6.9 x 5.9 x 4.9 no evidence of internal color Doppler flow. This may represent hematoma or seroma from his prior stent placement. No evidence of pseudoaneurysm. I did speak with Dr Joy who recommended CTA which is pending. Hemoglobin and hematocrit are stable INR is 1.2. Electrolytes are unremarkable. Dr. Canela at bedside, patient will be placed in observation Case discussed with Dr Smith. - Lab Data Result diagrams: 09/10/22 10:13 09/10/22 10:13 Lab Results 09/10/22 09/10/22 09/10/22 Range/Units 10:13 10:13 10:13 WBC 6.6 (3.8-10.6) k/uL RBC 3.38 L (4.30-5.90) m/uL Hgb 10.7 L (13.0-17.5) gm/dL Hct 31.5 L (39.0-53.0) % MCV 93.1 D (80.0-100.0) fL MCH 31.5 (25.0-35.0) pg MCHC 33.9 (31.0-37.0) g/dL RDW 15.0 (11.5-15.5) % Plt Count 295 (150-450) k/uL MPV 7.2 Neutrophils % 72 % Lymphocytes % 11 % Monocytes % 8 % Eosinophils % 7 % Basophils % 0 % Neutrophils # 4.7 (1.3-7.7) k/uL Lymphocytes # 0.7 L (1.0-4.8) k/uL Monocytes # 0.5 (0-1.0) k/uL Eosinophils # 0.5 (0-0.7) k/uL Basophils # 0.0 (0-0.2) k/uL PT 12.6 H (9.0-12.0) sec INR 1.2 H (<1.2) Sodium 135 L (137-145) mmol/L Potassium 4.2 (3.5-5.1) mmol/L Chloride 98 (98-107) mmol/L Carbon Dioxide 31 H (22-30) mmol/L Anion Gap 6 mmol/L BUN 17 (9-20) mg/dL Creatinine 0.90 (0.66-1.25) mg/dL Est GFR (CKD-EPI)AfAm >90 (>60 ml/min/1.73 sqM) Est GFR (CKD-EPI)NonAf 89 (>60 ml/min/1.73 sqM) Glucose 99 (74-99) mg/dL Calcium 8.5 (8.4-10.2) mg/dL Total Bilirubin 0.6 (0.2-1.3) mg/dL AST 26 (17-59) U/L ALT 23 (4-49) U/L Alkaline Phosphatase 89 (38-126) U/L Total Protein 6.3 (6.3-8.2) g/dL Albumin 3.8 (3.5-5.0) g/dL Disposition Clinical Impression: Right groin pain Disposition: ADMITTED IP TO THIS [facility] Condition: Good Referrals: Chet Diallo DO [Primary Care Provider] - 1-2 days Decision Date: 09/10/22 Decision Time: 12:02
--- NOTE | 2022-09-10 09:38 | US ---
EXAMINATION TYPE: US groin LT DATE OF EXAM: 09/10/2022 COMPARISON: CT angiogram of 08/22/2022 CLINICAL HISTORY: Left groin swelling status post stent placement. Left groin swelling stent placemen t 08/27/22. Technique: Grayscale and color Doppler imaging the left groin. FINDINGS: Complex fluid area visualized left groin measuring 6.9 x 5.9 x 4.9 cm. No evidence of internal color Doppler flow. IMPRESSION: Complex fluid collection with internal debris. Represent hematoma or seroma from prior s tent placement. No evidence of pseudoaneurysm.
[2022-09-10 10:28] LABS: Basophils % (A) 0 %; Eosinophils # (A) 0.5 k/uL (0-0.7); Eosinophils % (A) 7 %; HCT 31.5 % (39.0-53.0); HGB 10.7 gm/dL (13.0-17.5); Lymphocytes # (A) 0.7 k/uL (1.0-4.8); Lymphocytes % (A) 11 %; MCH 31.5 pg (25.0-35.0); MCHC 33.9 g/dL (31.0-37.0); Mean Platelet Volume 7.2; Monocytes # (A) 0.5 k/uL (0-1.0); Monocytes % (A) 8 %; Neutrophils # (A) 4.7 k/uL (1.3-7.7); Neutrophils % (A) 72 %; Platelet Count 295 k/uL (150-450); RBC 3.38 m/uL (4.30-5.90); WBC 6.6 k/uL (3.8-10.6)
[2022-09-10 10:40] LABS: ALT 23 U/L (4-49); AST 26 U/L (17-59); African American GFR (CKD) >90 (>60 ml/min/1.73 sqM); Albumin 3.8 g/dL (3.5-5.0); Alkaline Phosphatase 89 U/L (38-126); Anion Gap 6 mmol/L; Blood Urea Nitrogen 17 mg/dL (9-20); Calcium 8.5 mg/dL (8.4-10.2); Carbon Dioxide 31 mmol/L (22-30); Chloride 98 mmol/L (98-107); Glucose 99 mg/dL (74-99); Non-African American GFR(CKD) 89 (>60 ml/min/1.73 sqM); Potassium 4.2 mmol/L (3.5-5.1); Sodium 135 mmol/L (137-145); Total Bilirubin 0.6 mg/dL (0.2-1.3); Total Protein 6.3 g/dL (6.3-8.2)
[2022-09-10 10:53] LABS: INR 1.2 (<1.2); Prothrombin Time 12.6 sec (9.0-12.0)
[2022-09-10 10:58] LABS: MCV 93.1 fL (80.0-100.0)
--- NOTE | 2022-09-10 11:12 | P.GSCN ---
History of Present Illness Consult date: 09/10/22 History of present illness: Scooby is s a67 year old male in to the ER with complaints of left groin pain. He states he felt a popping sensation and then had some discomfort in that area. Earlier this month he underwent significant intervention for aortoiliac occlusive disease. He had bilateral cutdowns, a right femoral endarterectomy and patch angioplasty and then subsequent aortobiiliac stent grafting with elongation of the stents to the right iliofemoral level. The bilateral groins were closed under direct visualization. He convalesced at the outside hospital and did well with this and was discharged home. He denies a significant issue prior to this pain. He did have a fluid collection in that left groin and some swelling which has been there since surgery. That has not changed all. The pain is somewhat more distal to this. He denies any fevers, chills, nausea or vomiting. His legs are still warm and dry. He denies any issues with his extremities other than at the site. Past Medical History Past Medical History: Deep Vein Thrombosis (DVT), Myocardial Infarction ([place]) Additional Past Medical History / Comment(s): arterial blockage right leg 08/22/22, [place] at 39 no stenting Last Myocardial Infarction Date:: 1993 History of Any Multi-Drug Resistant Organisms: None Reported Past Surgical History: AICD, Orthopedic Surgery Additional Past Surgical History / Comment(s): knee left, pelvic fx surgery, TAVR 06/09/2022, leg stents bilateral Past Anesthesia/Blood Transfusion Reactions: No Reported Reaction Type of Cardiac Device: AICD Device Placement Date:: 06/10/2022 Past Psychological History: No Psychological Hx Reported Smoking Status: Former smoker Past Alcohol Use History: Occasional Past Drug Use History: None Reported - Past Family History Father Family Medical History: Congestive Heart Failure (CHF) Mother Family Medical History: No Reported History Medications and Allergies Home Medications Medication Instructions Recorded Confirmed Type Aspirin EC [Ecotrin Low Dose] 81 mg PO DAILY 08/22/22 08/22/22 History Acetaminophen Tab [Tylenol] 650 mg PO Q6HR PRN tab 08/24/22 Rx Atorvastatin [Lipitor] 40 mg PO DAILY tab 08/24/22 Rx Bumetanide [BUMEX] 1 mg PO BID tab 08/24/22 Rx HYDROcodone/APAP 5-325MG [[place] 1 each PO Q4HR PRN tab 08/24/22 Rx 5-325] Isosorbide Mononitrate ER [Imdur] 30 mg PO DAILY tab 08/24/22 Rx Losartan [Cozaar] 50 mg PO DAILY tab 08/24/22 Rx Spironolactone [Aldactone] 25 mg PO DAILY tab 08/24/22 Rx carvediloL [Coreg] 6.25 mg PO BID-W/MEALS tab 08/24/22 Rx traMADol HCl [Ultram] 50 mg PO Q6H PRN tab 08/24/22 Rx Allergies Allergy/AdvReac Type Severity Reaction Status Date / Time No Known Allergies Allergy Verified 08/22/22 12:07 Surgical - Exam Vital Signs Temp Pulse Resp BP Pulse Ox 97 F L 77 18 153/75 99 09/10/22 08:31 09/10/22 08:31 09/10/22 08:31 09/10/22 08:31 09/10/22 08:31 Gen. is a pleasant cooperative male in no acute distress. Heart appears regular. Lungs are clear. Abdomen is soft. Some internal clubbing, cyanosis or edema. Fullness to the left groin. Nonpulsatile mass. Incisions are clean and dry. Bilateral lower extremities are warm. Results Ultrasound was personally reviewed. No evidence of pseudoaneurysm, there is an old hematoma noted. - Labs 09/10/22 10:13 09/10/22 10:13 Abnormal Lab Results - Last 24 Hours (Table) 09/10/22 09/10/22 09/10/22 Range/Units 10:13 10:13 10:13 RBC 3.38 L (4.30-5.90) m/uL Hgb 10.7 L (13.0-17.5) gm/dL Hct 31.5 L (39.0-53.0) % Lymphocytes # 0.7 L (1.0-4.8) k/uL PT 12.6 H (9.0-12.0) sec INR 1.2 H (<1.2) Sodium 135 L (137-145) mmol/L Carbon Dioxide 31 H (22-30) mmol/L Diabetes panel 09/10/22 Range/Units 10:13 Sodium 135 L (137-145) mmol/L Potassium 4.2 (3.5-5.1) mmol/L Chloride 98 (98-107) mmol/L Carbon Dioxide 31 H (22-30) mmol/L BUN 17 (9-20) mg/dL Creatinine 0.90 (0.66-1.25) mg/dL Glucose 99 (74-99) mg/dL Calcium 8.5 (8.4-10.2) mg/dL AST 26 (17-59) U/L ALT 23 (4-49) U/L Alkaline Phosphatase 89 (38-126) U/L Total Protein 6.3 (6.3-8.2) g/dL Albumin 3.8 (3.5-5.0) g/dL Calcium panel 09/10/22 Range/Units 10:13 Calcium 8.5 (8.4-10.2) mg/dL Albumin 3.8 (3.5-5.0) g/dL Pituitary panel 09/10/22 Range/Units 10:13 Sodium 135 L (137-145) mmol/L Potassium 4.2 (3.5-5.1) mmol/L Chloride 98 (98-107) mmol/L Carbon Dioxide 31 H (22-30) mmol/L BUN 17 (9-20) mg/dL Creatinine 0.90 (0.66-1.25) mg/dL Glucose 99 (74-99) mg/dL Calcium 8.5 (8.4-10.2) mg/dL Adrenal panel 09/10/22 Range/Units 10:13 Sodium 135 L (137-145) mmol/L Potassium 4.2 (3.5-5.1) mmol/L Chloride 98 (98-107) mmol/L Carbon Dioxide 31 H (22-30) mmol/L BUN 17 (9-20) mg/dL Creatinine 0.90 (0.66-1.25) mg/dL Glucose 99 (74-99) mg/dL Calcium 8.5 (8.4-10.2) mg/dL Total Bilirubin 0.6 (0.2-1.3) mg/dL AST 26 (17-59) U/L ALT 23 (4-49) U/L Alkaline Phosphatase 89 (38-126) U/L Total Protein 6.3 (6.3-8.2) g/dL Albumin 3.8 (3.5-5.0) g/dL Assessment and Plan Assessment: Left groin pain Recent intervention for aortoiliac occlusive disease Plan: At this point there does not appear to be any area of active bleeding in the visualized portions on the ultrasound, we will go forward with a CT angiogram with runoffs to fully evaluate the areas. Await further recommendations pending imaging.
[2022-09-10] MEDS ORDERED: HYDROcodone/APAP 5-325MG 1 EACH TAB PO STA (11:39)
[2022-09-10] MEDS ORDERED: NALOXONE 0.4 MG/ML 1 ML VIAL IV PRN ×2 (12:02→13:23)
--- NOTE | 2022-09-10 12:28 | CT ---
EXAMINATION TYPE: CT angio abd aorta w/Runoff DATE OF EXAM: 09/10/2022 COMPARISON: 08/22/2022 HISTORY: 67-year-old male with hematoma left groin status post stent placement 08/24/2022. Lt leg pain TECHNIQUE: Contiguous axial scanning of the abdomen and pelvis performed without and with IV Contrast , patient injected with 100 mL of Isovue 370. Additional bilateral lower extremity postcontrast run o ff. Coronal/sagittal MIP reconstructions performed. 3-D reconstructions generated on a dedicated [employer] workstation. CT DLP: 2482.9 mGycm Automated exposure control for dose reduction was used. FINDINGS: Left anterior chest wall AICD generator with right atrial, right ventricular, and coronary sinus lead s. Endovascular aortic valve replacement noted. Screw fixation left hemipelvis. Previous ACL reconstruction left knee. Heart upper limits of normal in size without pericardial effusion. There are emphysematous changes in the lower lungs with strandy atelectasis. Arterial phase imaging of the liver shows tiny 5 mm smaller scattered cysts. Mixing artifact within t he main portal vein. Some punctate calcifications in the region of the pancreatic head may reflect se quela of prior inflammation. Adrenal glands, spleen, and pancreas otherwise show no gross abnormality. Kidneys show no gross abnormality. No dilated small bowel, free fluid, or free air. No mesenteric or retroperitoneal lymphadenopathy. Ap pendix not visualized. Mild to moderate scattered stool is present. Occasional sigmoid diverticulosis . No pericolonic inflammatory change. Bladder is distended. Prostate gland measures 4.1 cm wide. 1.2 cm mildly enlarged right external rafa c chain lymph node. Prominent but nonenlarged bilateral inguinal lymph nodes likely reactive. VASCULATURE: Moderate atherosclerotic calcifications are present throughout the abdominal aorta and iliac arteries . At least mild atherosclerotic narrowing at the origin of the celiac axis and SMA. Infrarenal abdominal aortobiiliac endovascular stent graft is demonstrated. Along the proximal to midportion of the abdominal aortic stent graft, there appears to be enhancement along the outer aspect of the anterior stent wall for span of approximately 4 cm, axial image 79. At the level of the distal abdominal aorta, there appears to be additional enhancement outside of the stent wall along the left lateral margin, for example, axial image 105. Distal abdominal aortic jennie ve sac measures 3.3 cm. On the left, stent extends to the mid left common iliac artery. Segmental moderate atherosclerotic na rrowing within the remaining left common iliac artery. On the right, stent extends to the common femoral artery. There appears to be [id number] foca l narrowing of the stent at the level of the proximal right external iliac artery, axial image 141. Bilateral groin seromas/hematomas measuring up to 10.9 cm long and 5.4 x 5.1 cm wide on the right. 9.8 cm long and 6.8 x 4.6 cm wide on the left. RIGHT: Large, patent lower common femoral artery after the patient's stent has ended. Surrounding seroma/hem atoma as mentioned above. Profunda femoral artery is patent. The right SFA occludes after 2 cm. The right SFA reconstitutes distally after the adductor hiatus. There is scattered moderate atheroscl erotic calcifications are present throughout the remainder of the SFA and popliteal artery. Aberrant high takeoff of the anterior tibial artery. The anterior tibial artery and peroneal artery becomes very diminutive at the lower third leg level. Peroneal artery not seen beyond the upper ankle. Faint anterior tibial artery flow into the hindfoot. There is runoff via the posterior tibial artery. LEFT: Moderate atherosclerotic narrowing left common femoral artery. The left SFA occludes after 1.5 cm. The profunda femoral artery is patent. Reconstitution at the upper popliteal artery. Scattered moderate atherosclerotic calcifications are p resent. Aberrant high takeoff of the left anterior tibial artery. Anterior tibial artery and peroneal arteries become diminutive at the lower third leg level. Peroneal artery not seen beyond the ankle. Anterior tibial artery not seen beyond the hindfoot. Runoff via th e posterior tibial artery. Asymmetric soft tissue swelling distal left leg and ankle. IMPRESSION: 1. BILATERAL GROIN HEMATOMAS/SEROMAS RIGHT GREATER THAN LEFT. ON THE RIGHT, THIS MEASURES 10.9 X 5.4 X 5.1 CM. ON THE LEFT, THIS MEASURES 9.8 x 6.8 x 4.6 cm. No active extravasation seen. 2. Abdominal aortobiiliac endovascular stent graft. Along the proximal 4 cm of the stent graft and al kyung the distal aspect of the abdominal stent graft, there is contrast seen in the excluded lumen/jennie ve sac. Unable to exclude endoleak. Distal creek sac measures 3.3 cm. 3. On the right, stent graft extends down to the CREAM DIPPER. There appears to be moderate to severe focal na rrowing of the stent graft at the proximal right external iliac artery, axial image 141. Right: 4. Occluded SFA. Patent PFA. SFA reconstitution after the adductor hiatus. Scattered moderate atheros clerotic calcifications extending distally. 5. Aberrant high takeoff anterior tibial artery. 6. Both anterior tibial artery and peroneal artery becomes very diminutive at the lower third blood l evel. Peroneal artery not seen beyond the upper ankle. Faint anterior tibial artery flow into the hin dfoot. Runoff via the posterior tibial artery. Left: 7. Moderate atherosclerotic stenosis left CREAM DIPPER. Occluded SFA. Patent PFA. SFA reconstitution at the up per popliteal artery. Scattered moderate atherosclerotic calcifications extending distally. 8. Aberrant high takeoff of the anterior tibial artery. 9. Anterior tibial artery and peroneal artery becomes diminutive at the lower third lead level. Peron eal artery seen to the ankle. Anterior tibial artery not seen beyond the hindfoot. Runoff via posteri or tibial artery. 10. Some asymmetric soft tissue swelling of the distal left leg and ankle.
[2022-09-10] MEDS ORDERED: ACETAMINOPHEN TAB 325 MG TAB PO PRN (13:12)
--- NOTE | 2022-09-10 13:32 | P.HPIM ---
History of Present Illness H&P Date: 09/10/22 Chief Complaint: left groin pain Scooby is s a67 year old male in to the ER with complaints of left groin pain. He states he felt a popping sensation and then had some discomfort in that area. Earlier this month he underwent revascularization procedure for aortoiliac occlusive disease. He had bilateral cutdowns, a right femoral endarterectomy and patch angioplasty and then subsequent aortobiiliac stent grafting with elongation of the stents to the right iliofemoral level. When he woke up this morning he continued to have severe left groin pain so [facility] He has some degree of bilateral groins swelling postoperatively since yesterday his left groin seems to be more swollen. He denies any fevers, chills, nausea or vomiting. Denies any leg pain. Emergency department he had CT angiogram of the bilateral lower extremities which showed bilateral groin hematoma/seroma right more than left. Patient was evaluated by vascular surgery and decision was made to admit him for observation. Review of Systems Complete review of system performed, pertinent positives per HPI, otherwise negative Past Medical History Past Medical History: Deep Vein Thrombosis (DVT), Myocardial Infarction ([place]) Additional Past Medical History / Comment(s): arterial blockage right leg 08/22/22, [place] at 39 no stenting Last Myocardial Infarction Date:: 1993 History of Any Multi-Drug Resistant Organisms: None Reported Past Surgical History: AICD, Orthopedic Surgery Additional Past Surgical History / Comment(s): knee left, pelvic fx surgery, TAVR 06/09/2022, leg stents bilateral Past Anesthesia/Blood Transfusion Reactions: No Reported Reaction Type of Cardiac Device: AICD Device Placement Date:: 06/10/2022 Past Psychological History: No Psychological Hx Reported Smoking Status: Former smoker Past Alcohol Use History: Occasional Past Drug Use History: None Reported - Past Family History Father Family Medical History: Congestive Heart Failure (CHF) Mother Family Medical History: No Reported History Medications and Allergies Home Medications Medication Instructions Recorded Confirmed Type Aspirin EC [Ecotrin Low Dose] 81 mg PO DAILY 08/22/22 09/10/22 History Acetaminophen Tab [Tylenol] 650 mg PO Q6HR PRN tab 08/24/22 09/10/22 Rx Isosorbide Mononitrate ER [Imdur] 30 mg PO DAILY tab 08/24/22 09/10/22 Rx carvediloL [Coreg] 6.25 mg PO BID-W/MEALS tab 08/24/22 09/10/22 Rx Atorvastatin [Lipitor] 40 mg PO HS 09/10/22 09/10/22 History Bumetanide [BUMEX] 1 mg PO DAILY 09/10/22 09/10/22 History HYDROcodone/APAP 5-325MG [[place] 1 tab PO Q4HR PRN 09/10/22 09/10/22 History 5-325] Melatonin 5 mg PO HS 09/10/22 09/10/22 History Allergies Allergy/AdvReac Type Severity Reaction Status Date / Time No Known Allergies Allergy Verified 09/10/22 12:37 Physical Exam Vitals: Vital Signs Temp Pulse Resp BP Pulse Ox 09/10/22 11:23 87 18 144/63 97 09/10/22 08:31 97 F L 77 18 153/75 99 Intake and Output 09/09/22 09/10/22 09/10/22 22:59 06:59 14:59 Other: Weight 83.915 kg Constitutional: No acute distress, conversant, pleasant Eyes:Anicteric sclerae, moist conjunctiva, no lid-lag, PERRLA, ENMT: Oropharynx clear, no erythema, exudates Neck: Supple, FROM, no masses, or JVD, No carotid bruits, No thyromegaly Lungs: Clear to auscultation, Clear to percussion, Normal respiratory effort, no accessory muscle use Cardiovascular: Heart regular in rate and rhythm, No murmurs, gallops, or rubs, No peripheral edema Abdominal: Soft, Nontender, no guarding, rebound or rigidity, Normoactive bowel sounds, No hepatomegaly, No splenomegaly, No palpable mass Skin: Normal temperature, tone, texture, turgor, no induration, No subcutaneous nodules, No rash, lesions, No ulcers Extremities: bilateral groins swelling and tenderness L>R. No digital cyanosis, No clubbing, Pedal pulses intact and symmetrical, Radial pulses intact and symmetrical, No calf tenderness Psychiatric: Alert and oriented to person, place and time, appropriate affect, intact judgement Neuro: Muscles Strength 5/5 in all 4 extremities, Sensation to light touch grossly present throughout, Cranial nerves II-XII grossly intact, no focal sensory deficits Results CBC & Chem 7: 09/10/22 10:13 09/10/22 10:13 Labs: Abnormal Lab Results - Last 24 Hours (Table) 09/10/22 09/10/22 09/10/22 Range/Units 10:13 10:13 10:13 RBC 3.38 L (4.30-5.90) m/uL Hgb 10.7 L (13.0-17.5) gm/dL Hct 31.5 L (39.0-53.0) % Lymphocytes # 0.7 L (1.0-4.8) k/uL PT 12.6 H (9.0-12.0) sec INR 1.2 H (<1.2) Sodium 135 L (137-145) mmol/L Carbon Dioxide 31 H (22-30) mmol/L Assessment and Plan Plan: Bilateral groin hematomas Admit to observation, D/w Dr. Canela, no plans for intervention Will hold antiplatelets agents for now Chronic systolic CHF HTN Hyperlipidemia Stable resume meds Admit to observation
[2022-09-10] MEDS: carvediloL 6.25 MG TAB PO SCH (17:23)
[2022-09-10] MEDS: HYDROcodone/APAP 5-325MG 1 EACH TAB PO PRN (17:26)
[2022-09-10 19:38] VITALS: RESP 16
[2022-09-10] MEDS ORDERED: MELATONIN 5 MG TABLET PO SCH (21:00)
[2022-09-10] MEDS ORDERED: ATORVASTATIN 40 MG TAB PO SCH (21:00)
[2022-09-11] MEDS: HYDROcodone/APAP 5-325MG 1 EACH TAB PO PRN ×2 (01:58→11:11)
[2022-09-11] MEDS: carvediloL 6.25 MG TAB PO SCH (07:25)
[2022-09-11 08:16] VITALS: BP 114/63; PULSE 67; TEMP 97.9
[2022-09-11 08:53] LABS: Basophils # (A) 0.06 X 10*3/uL (0.00-0.10); Basophils % (A) 0.9 %; Eosinophils # (A) 0.38 X 10*3/uL (0.04-0.35); Eosinophils % (A) 5.5 %; HCT 30.1 % (39.6-50.0); HGB 9.6 g/dL (13.0-17.0); Immature Grans, Automated 0.3 %; Lymphocytes # (A) 0.58 X 10*3/uL (0.90-5.00); Lymphocytes % (A) 8.5 %; MCH 30.2 pg (27.0-32.0); MCHC 31.9 g/dL (32.0-37.0); MCV 94.7 fL (80.0-97.0); Mean Platelet Volume 9.4 fL (9.5-12.2); Monocytes # (A) 0.68 X 10*3/uL (0.20-1.00); Monocytes % (A) 9.9 %; NRBC Per 100 WBC 0 /100 WBCS (0.0-0.0); Neutrophils # (A) 5.13 X 10*3/uL (1.80-7.70); Neutrophils % (A) 74.9 %; Platelet Count 255 X 10*3/uL (140-440); RBC 3.18 X 10*6/uL (4.40-5.60); RDW 15.3 % (11.5-14.5); WBC 6.85 X 10*3/uL (4.50-10.00)
[2022-09-11] MEDS ORDERED: ISOSORBIDE MONONITRATE ER 30 MG TAB.ER.24H PO SCH (09:00)
[2022-09-11] MEDS ORDERED: ASPIRIN 81 MG PO SCH (09:00)
[2022-09-11] MEDS ORDERED: BUMETANIDE 1 MG TAB PO SCH (09:00)
[2022-09-11 11:08] LABS: Magnesium 2.2 mg/dL (1.5-2.4); Phosphorus 3.8 mg/dL (2.4-5.1)
[2022-09-11 11:53] LABS: Albumin 3.5 g/dL (3.8-4.9); Albumin/Globulin Ratio 1.67 (1.60-3.17); BUN/Creat Ratio 23.86 Ratio (12.00-20.00); Blood Urea Nitrogen 16.7 mg/dL (9.0-27.0); Calcium 8.7 mg/dL (8.7-10.3); Globulin 2.1 g/dL (1.6-3.3); Non-African American GFR(CKD) 98.3 (60.0-200.0); Potassium 4.2 mmol/L (3.5-5.5); Total Bilirubin 0.3 mg/dL (0.30-1.20); Total Protein 5.6 g/dL (6.2-8.2)
--- NOTE | 2022-09-11 12:08 | P.DS ---
Providers Date of admission: 09/10/22 12:09 Expected date of discharge: 09/11/22 Attending physician: Aviva Godinez DO Consults: 09/10/22 12:02 Consult Physician Routine Consulting Provider: Jyoti Canela Consult Reason/Comments: left groin pain Do you want consulting provider notified?: Already Contacted Primary care physician: [facility] Course: 67 year old male in to the ER with complaints of left groin pain. He states he felt a popping sensation and then had some discomfort in that area. Earlier this month he underwent revascularization procedure for aortoiliac occlusive disease. He had bilateral cutdowns, a right femoral endarterectomy and patch angioplasty and then subsequent aortobiiliac stent grafting with elongation of the stents to the right iliofemoral level. When he woke up this morning he continued to have severe left groin pain so he presented to the emergency department. He has some degree of bilateral groins swelling postoperatively since yesterday his left groin seems to be more swollen. He denies any fevers, chills, nausea or vomiting. Denies any leg pain. Emergency department he had CT angiogram of the bilateral lower extremities which showed bilateral groin hematoma/seroma right more than left. Patient was evaluated by vascular surgery and decision was made to admit him for observation. Patient was admitted, he was observed for worsening symptoms. The next day he was doing great. Swelling in his left groin went down. Hemoglobin remained stable. He was evaluated by vascular surgery Dr. Canela who advised discharging him on the same home medications that he came in with. He will be discharged home in stable condition. Patient Condition at Discharge: Good Plan - Discharge Summary Discharge Rx Participant: No New Discharge Prescriptions: Continue Aspirin EC [Ecotrin Low Dose] 81 mg PO DAILY Atorvastatin [Lipitor] 40 mg PO HS HYDROcodone/APAP 5-325MG [[place] 5-325] 1 tab PO Q4HR PRN PRN Reason: Severe Pain Melatonin 5 mg PO HS carvediloL [Coreg] 6.25 mg PO BID-W/MEALS tab Isosorbide Mononitrate ER [Imdur] 30 mg PO DAILY tab Acetaminophen Tab [Tylenol] 650 mg PO Q6HR PRN tab PRN Reason: Mild Pain Or Fever > 100.5 Bumetanide [BUMEX] 1 mg PO DAILY Discharge Medication List Aspirin EC [Ecotrin Low Dose] 81 mg PO DAILY 08/22/22 [History] Acetaminophen Tab [Tylenol] 650 mg PO Q6HR PRN tab 08/24/22 [Rx] Isosorbide Mononitrate ER [Imdur] 30 mg PO DAILY tab 08/24/22 [Rx] carvediloL [Coreg] 6.25 mg PO BID-W/MEALS tab 08/24/22 [Rx] Atorvastatin [Lipitor] 40 mg PO HS 09/10/22 [History] Bumetanide [BUMEX] 1 mg PO DAILY 09/10/22 [History] HYDROcodone/APAP 5-325MG [[place] 5-325] 1 tab PO Q4HR PRN 09/10/22 [History] Melatonin 5 mg PO HS 09/10/22 [History] Follow up Appointment(s)/Referral(s): Chet Diallo DO [Primary Care Provider] - 1-2 days
--- NOTE | 2022-09-11 12:28 | P.PN ---
Subjective Progress Note Date: 09/11/22 Patient seen and examined. No complaints. Feeling much better. Pain is improved. Has had some mild drainage serous fluid from his bilateral groins. Otherwise essentially unchanged from previous. No acute distress. Nontoxic-appearing. Head is normocephalic. Heart appears regular. Lungs are clear. Abdomen is soft. Bilateral groins with fluid collection as previous, no erythema. No significant drainage. No pulsatile masses. Bilateral groin seromas Previous aortobiiliac endograft with extensions Left groin pain At this point the patient appears to be stable, there is no changes in his ap pearance as far as his groin swelling or pain. The pain is improved. Likely there is some pressure in the area due to the seromas however no indication for intervention at this point. He has follow-up later this week with Dr. Garcia Objective - Vital Signs Vital signs: Vital Signs Temp 97.9 F 09/11/22 07:00 Pulse 67 09/11/22 07:00 Resp 16 09/11/22 07:00 BP 114/63 09/11/22 07:00 Pulse Ox 96 09/11/22 07:00 FiO2 Intake & Output 09/10/22 09/11/22 09/11/22 18:59 06:59 18:59 Intake Total 118 118 Balance 118 118 Weight 83.915 kg Intake: Oral 118 118 Other: Voiding Method Toilet Urinal # Voids 1 300 - Labs CBC & Chem 7: 09/11/22 04:58 09/11/22 04:58 Labs: Abnormal Lab Results - Last 24 Hours (Table) 09/11/22 09/11/22 Range/Units 04:58 04:58 RBC 3.18 L (4.40-5.60) X 10*6/uL Hgb 9.6 L (13.0-17.0) g/dL Hct 30.1 L (39.6-50.0) % MCHC 31.9 L (32.0-37.0) g/dL RDW 15.3 H (11.5-14.5) % MPV 9.4 L (9.5-12.2) fL Lymphocytes # 0.58 L (0.90-5.00) X 10*3/uL Eosinophils # 0.38 H (0.04-0.35) X 10*3/uL Anion Gap 9.00 L (10.00-18.00) mmol/L BUN/Creatinine Ratio 23.86 H (12.00-20.00) Ratio Total Protein 5.6 L (6.2-8.2) g/dL Albumin 3.5 L (3.8-4.9) g/dL
== END 2022-09-11 13:56 | disposition home or self-care (01) ==
LOC: EC 08:29 → 6NMEDSUR 12:09
PROVIDERS: ADMIT Internal Medicine; ATTEND Internal Medicine
DX: L76.34 Postprocedural seroma of skin and subcutaneous tissue following other procedure (principal); R10.31 Right lower quadrant pain; Y83.8 Other surgical procedures as the cause of abnormal reaction of the patient, or of later complication, without mention of misadventure at the time of the procedure; I25.2 Old myocardial infarction; I11.0 Hypertensive heart disease with heart failure; I50.22 Chronic systolic (congestive) heart failure; E78.5 Hyperlipidemia, unspecified; Z86.718 Personal history of other venous thrombosis and embolism; Z87.891 Personal history of nicotine dependence; Z95.810 Presence of automatic (implantable) cardiac defibrillator; Z95.820 Peripheral vascular angioplasty status with implants and grafts; Z79.02 Long term (current) use of antithrombotics/antiplatelets; Z79.82 Long term (current) use of aspirin; Z79.899 Other long term (current) drug therapy
CPT/HCPCS: 99285; 36415; 80053 ×2; 83735; 84100; 85025 ×2; 85610; 76882; 75635; G0378 ×2; Q9967

== ENCOUNTER 2022-10-05 11:38 | Inpatient (IN) | payer MEDICARE, BC ==
--- NOTE | 2022-10-05 12:16 | ED ---
General Adult HPI - General Chief complaint: Skin/Abscess/Foreign Body Stated complaint: post op infection, groin Time Seen by Provider: 10/05/22 12:02 Source: patient Mode of arrival: ambulatory Limitations: no limitations - History of Present Illness Initial comments: Dictation was produced using [employer] dictation software. please excuse any gramm atical, word or spelling errors. Chief Complaint: 67-year-old male presents with left groin pain History of Present Illness: 67-year-old male presents to the emergency department for left groin pain. He states that his brother has been draining and painful the last 2-3 days. Patient in August 27 underwent vascular surgery were bilateral groin axis cc were performed. This procedure was performed at [facility]. Patient denies any fever or constitutional symptoms. Denies any numbness or paresthesias to the left lower extremity. The ROS documented in this emergency department record has been reviewed and confirmed by me. Those systems with pertinent positive or negative responses have been documented in the HPI. All other systems are other negative and/or noncontributory. PHYSICAL EXAM: General Impression: Alert and oriented x3, not in acute distress HEENT: Normocephalic atraumatic, extra-ocular movements intact, pupils equal and reactive to light bilaterally, mucous membranes moist. Cardiovascular: Heart regular rate and rhythm Chest: Able to complete full sentences, no retractions, no tachypnea Abdomen: abdomen soft, non-tender, non-distended, no organomegaly Bilateral groins: Swelling and slightly open incision to the left groin. There is drainage of seromatous fluid. No induration or erythema Musculoskeletal: Pulses present and equal in all extremities, no peripheral edema Motor: no focal deficits noted Neurological: CN II-XII grossly intact, no focal motor or sensory deficits noted Skin: Intact with no visualized rashes Psych: Normal affect and mood ED course: 7-year-old male presents emergency department for groin pain and groin mass and drainage. Patient is 5 weeks out from a vascular procedure. Vital signs upon arrival shows blood pressure of 75/57. Rest vital signs within acceptable limits. Suspect that blood pressure is air because patient is well- appearing and is standing up with no issues. Nursing notes and chart review was performed Laboratory evaluation obtained. CBC remarkable. Coag panel metabolic panel was within acceptable limits. There is however a slight leukocytosis likely secondary to stress. Groin ultrasound shows complex fluid collection, abscess is not excluded. Patient admitted to observation under the care of [facility]. Vascular surgery consulted. - Related Data Home Medications Medication Instructions Recorded Confirmed Aspirin EC [Ecotrin Low Dose] 81 mg PO DAILY 08/22/22 10/05/22 Atorvastatin [Lipitor] 40 mg PO HS 09/10/22 10/05/22 Bumetanide [BUMEX] 1 mg PO DAILY 09/10/22 10/05/22 Clopidogrel [Plavix] 75 mg PO DAILY 10/05/22 10/05/22 Gabapentin [Neurontin] 100 mg PO BID 10/05/22 10/05/22 Potassium Chloride [Potassium 10 meq PO DAILY 10/05/22 10/05/22 Chloride ER] carvediloL [Coreg] 12.5 mg PO BID 10/05/22 10/05/22 Allergies Allergy/AdvReac Type Severity Reaction Status Date / Time No Known Allergies Allergy Verified 10/05/22 12:33 Review of Systems ROS Statement: Those systems with pertinent positive or pertinent negative responses have been documented in the HPI. ROS Other: All systems not noted in ROS Statement are negative. Past Medical History Past Medical History: Deep Vein Thrombosis (DVT), Myocardial Infarction ([place]) Additional Past Medical History / Comment(s): arterial blockage right leg 08/22/22, [place] at 39 no stenting Last Myocardial Infarction Date:: 1993 History of Any Multi-Drug Resistant Organisms: None Reported Past Surgical History: AICD, Orthopedic Surgery Additional Past Surgical History / Comment(s): knee left, pelvic fx surgery, TAVR 06/09/2022, leg stents bilateral bilat femoral endarectomy Past Anesthesia/Blood Transfusion Reactions: No Reported Reaction Type of Cardiac Device: AICD Device Placement Date:: 06/10/2022 Past Psychological History: No Psychological Hx Reported Smoking Status: Former smoker Past Alcohol Use History: Occasional Past Drug Use History: None Reported - Past Family History Father Family Medical History: Congestive Heart Failure (CHF) Mother Family Medical History: No Reported History General Exam Limitations: no limitations Course Vital Signs 10/05/22 10/05/22 11:52 12:33 Temperature 97.5 F L Pulse Rate 82 Respiratory 16 18 Rate Blood Pressure 75/57 123/74 O2 Sat by Pulse 99 Oximetry Medical Decision Making - Lab Data Result diagrams: 10/05/22 12:33 10/05/22 12:33 Lab Results 10/05/22 10/05/22 10/05/22 Range/Units 12:33 12:33 12:33 WBC 11.3 H (3.8-10.6) k/uL RBC 3.94 L (4.30-5.90) m/uL Hgb 11.4 L (13.0-17.5) gm/dL Hct 36.7 L (39.0-53.0) % MCV 93.0 (80.0-100.0) fL MCH 29.0 (25.0-35.0) pg MCHC 31.2 (31.0-37.0) g/dL RDW 14.2 (11.5-15.5) % Plt Count 209 (150-450) k/uL MPV 7.9 Neutrophils % 83 % Lymphocytes % 5 % Monocytes % 7 % Eosinophils % 2 % Basophils % 0 % Neutrophils # 9.4 H (1.3-7.7) k/uL Lymphocytes # 0.6 L (1.0-4.8) k/uL Monocytes # 0.8 (0-1.0) k/uL Eosinophils # 0.2 (0-0.7) k/uL Basophils # 0.0 (0-0.2) k/uL PT 11.3 (9.0-12.0) sec INR 1.1 (<1.2) APTT 24.2 (22.0-30.0) sec Sodium 136 L (137-145) mmol/L Potassium 4.2 (3.5-5.1) mmol/L Chloride 97 L (98-107) mmol/L Carbon Dioxide 29 (22-30) mmol/L Anion Gap 10 mmol/L BUN 23 H (9-20) mg/dL Creatinine 0.89 (0.66-1.25) mg/dL Est GFR (CKD-EPI)AfAm >90 (>60 ml/min/1.73 sqM) Est GFR (CKD-EPI)NonAf 89 (>60 ml/min/1.73 sqM) Glucose 107 H (74-99) mg/dL Calcium 8.8 (8.4-10.2) mg/dL Disposition Clinical Impression: Surgical site infection Disposition: ADMITTED IP TO THIS HOSP Condition: Fair Referrals: Chet Diallo DO [Primary Care Provider] - 1-2 days Decision Time: 13:28
[2022-10-05 12:49] LABS: Basophils % (A) 0 %; Eosinophils # (A) 0.2 k/uL (0-0.7); Eosinophils % (A) 2 %; HCT 36.7 % (39.0-53.0); HGB 11.4 gm/dL (13.0-17.5); Lymphocytes # (A) 0.6 k/uL (1.0-4.8); Lymphocytes % (A) 5 %; MCHC 31.2 g/dL (31.0-37.0); Mean Platelet Volume 7.9; Monocytes # (A) 0.8 k/uL (0-1.0); Monocytes % (A) 7 %; Neutrophils # (A) 9.4 k/uL (1.3-7.7); Neutrophils % (A) 83 %; Platelet Count 209 k/uL (150-450); RBC 3.94 m/uL (4.30-5.90); RDW 14.2 % (11.5-15.5); WBC 11.3 k/uL (3.8-10.6)
--- NOTE | 2022-10-05 12:59 | US ---
EXAMINATION TYPE: US groin LT DATE OF EXAM: 10/05/2022 COMPARISON: 09/10/2022 CLINICAL HISTORY: Left groin would swelling and drainage In area of open wound, Left groin: A locuclated fluid collection measuring 5.4 x 5.0 x 4.9cm. This does not connect to any surrounding vessels. IMPRESSION: Complex fluid collection left groin persists although slightly smaller in size. Abscess i s not excluded.
[2022-10-05 13:00] LABS: African American GFR (CKD) >90 (>60 ml/min/1.73 sqM); Anion Gap 10 mmol/L; Blood Urea Nitrogen 23 mg/dL (9-20); Calcium 8.8 mg/dL (8.4-10.2); Carbon Dioxide 29 mmol/L (22-30); Chloride 97 mmol/L (98-107); Glucose 107 mg/dL (74-99); Non-African American GFR(CKD) 89 (>60 ml/min/1.73 sqM); Potassium 4.2 mmol/L (3.5-5.1); Sodium 136 mmol/L (137-145)
[2022-10-05 13:07] LABS: INR 1.1 (<1.2); Partial Thromboplastin Time 24.2 sec (22.0-30.0); Prothrombin Time 11.3 sec (9.0-12.0)
[2022-10-05] MEDS ORDERED: MORPHINE SULFATE 4 MG/ML SYRINGE IVP STA (13:10)
[2022-10-05] MEDS ORDERED: VANCOMYCIN IV PER PHARMACY 1 EACH MISC MISCELLANE PRN (13:17)
[2022-10-05] MEDS ORDERED: VANCOMYCIN 1,500 MG in SODIUM CHLORIDE 0.9% 500 ML 500 ML IVPB STA (13:25)
[2022-10-05] MEDS ORDERED: NALOXONE 0.4 MG/ML 1 ML VIAL IV PRN (13:25)
--- NOTE | 2022-10-05 18:07 | P.HPIM ---
History of Present Illness H&P Date: 10/05/22 Patient is a 67-year-old male with PMH of CAD, PAD, hypertension, history of AICD placement who presents the ED for left-sided groin swelling and redness. Patient reports undergoing vascular surgery at [facility] on August 27 which involved access via bilateral femoral, bilateral cutdowns, right femoral endarterectomy and patch angioplasty, aortobiliac stent grafting with elongation of the stents to the right iliofemoral level. Patient presented to the hospital on September 10 for worsening swelling of his left groin. He was evaluated by vascular surgery and cleared for discharge. Since then, patient reports worsened swelling of his left inguinal area along with redness and serous sanguinous discharge. The symptoms are concerning which prompted him to come to the ED. He denies any other symptoms. He denies any headache, lower extremity edema, nausea or vomiting, fever or chills, cough, chest pain, shortness of breath, palpitations, changes in urination or bowel habits. No changes in appetite or weight. Patient denies any dizziness, numbness/weakness/tingling of the ex tremities. In the ED, patient was noted to be hypotensive with BP of 75/57 which improved to within normal limits on recheck. CBC showed leukocytosis of 11.3 and hemoglobin of 11.4. Coagulation panel was within normal limits. CMP showed sodium 136, chloride of 97, BUN of 23 and glucose 107. Patient is admitted for treatment of cellulitis and vascular surgery consultation. Pertinent positives and negatives as discussed in HPI, a complete review of systems was performed and all other systems are negative. General: non toxic, no distress, appears at stated age Derm: warm, dry Head: atraumatic, normocephalic, symmetric Eyes: EOMI, no lid lag, anicteric sclera Mouth: no lip lesion, mucus membranes moist Cardiovascular: S1S2 reg, no murmur, positive posterior tibial pulse bilateral, Lungs: CTA bilateral, no rhonchi, no rales , no accessory muscle use Abdominal: soft, nontender to palpation, no guarding, no appreciable organomegaly Ext: no gross muscle atrophy, no edema, no contractures, swelling of the left inguinal area with erythema and tenderness to palpation, open wound with s erosanguineous discharge Neuro: no focal neuro deficits Psych: Alert, oriented, appropriate affect #Cellulitis of the L inguinal area Patient be started on vancomycin. Wound culture will be collected. Vascular surgery be consulted for further management of this patient. #Normocytic anemia No obvious signs of bleeding. Hemoglobin 11.4. Given hematoma seen on CT on previous admission, will hold aspirin and Plavix today. Plans to repeat CBC t omorrow morning. #Leukocytosis Mildly elevated with neutrophilia. Could be reactive. Continue to treat for cellulitis as above. Last repeat CBC tomorrow morning. #Normocytic anemia Appears at baseline. No signs of active bleeding. Last repeat CBC tomorrow morning. #Hypochloremic hyponatremia #Elevated BUN Probably related to use of Bumex. Start normal sinus 50 mL per hour. Last repeat BMP tomorrow morning. Patient has had one blood pressure of 75/57. His hypotension resolved with no intervention. His blood pressure since has been within normal limits. Will continue to monitor his vital signs. Chronic conditions: CAD, PAD, hypertension, history of AICD placement DVT prophylaxis: SCD Discussed with: Patient, ED physician Anticipated discharge: 1-[address]: Home A total of 30 minutes was spent on the care of this complex patient more than 50% of the time was spent in counseling and care coordination. Patient names his sister decision maker if he can't make decisions for himself. Patient would like to be full code. Past Medical History Past Medical History: Deep Vein Thrombosis (DVT), Myocardial Infarction ([place]) Additional Past Medical History / Comment(s): arterial blockage right leg 08/22/22, [place] at 39 no stenting Last Myocardial Infarction Date:: 1993 History of Any Multi-Drug Resistant Organisms: None Reported Past Surgical History: AICD, Orthopedic Surgery Additional Past Surgical History / Comment(s): knee left, pelvic fx surgery, TAVR 06/09/2022, leg stents bilateral bilat femoral endarectomy Past Anesthesia/Blood Transfusion Reactions: No Reported Reaction Type of Cardiac Device: AICD Device Placement Date:: 06/10/2022 Past Psychological History: No Psychological Hx Reported Smoking Status: Former smoker Past Alcohol Use History: Occasional Past Drug Use History: None Reported - Past Family History Father Family Medical History: Congestive Heart Failure (CHF) Mother Family Medical History: No Reported History Medications and Allergies Home Medications Medication Instructions Recorded Confirmed Type Aspirin EC [Ecotrin Low Dose] 81 mg PO DAILY 08/22/22 10/05/22 History Atorvastatin [Lipitor] 40 mg PO HS 09/10/22 10/05/22 History Bumetanide [BUMEX] 1 mg PO DAILY 09/10/22 10/05/22 History Clopidogrel [Plavix] 75 mg PO DAILY 10/05/22 10/05/22 History Gabapentin [Neurontin] 100 mg PO BID 10/05/22 10/05/22 History Potassium Chloride [Potassium 10 meq PO DAILY 10/05/22 10/05/22 History Chloride ER] carvediloL [Coreg] 12.5 mg PO BID 10/05/22 10/05/22 History Allergies Allergy/AdvReac Type Severity Reaction Status Date / Time No Known Allergies Allergy Verified 10/05/22 12:33 Physical Exam Vitals: Vital Signs Temp Pulse Pulse Resp BP BP Pulse Ox 10/05/22 15:10 98.3 F 79 16 144/73 94 L 10/05/22 14:42 98.3 F 79 16 144/73 94 L 10/05/22 13:47 98.9 F 75 18 119/61 97 10/05/22 12:33 18 123/74 10/05/22 11:52 97.5 F L 82 16 75/57 99 Intake and Output 10/05/22 10/05/22 10/05/22 06:59 14:59 22:59 Other: Weight 81.647 kg Results CBC & Chem 7: 10/05/22 12:33 10/05/22 12:33 Labs: Abnormal Lab Results - Last 24 Hours (Table) 10/05/22 10/05/22 Range/Units 12:33 12:33 WBC 11.3 H (3.8-10.6) k/uL RBC 3.94 L (4.30-5.90) m/uL Hgb 11.4 L (13.0-17.5) gm/dL Hct 36.7 L (39.0-53.0) % Neutrophils # 9.4 H (1.3-7.7) k/uL Lymphocytes # 0.6 L (1.0-4.8) k/uL Sodium 136 L (137-145) mmol/L Chloride 97 L (98-107) mmol/L BUN 23 H (9-20) mg/dL Glucose 107 H (74-99) mg/dL
[2022-10-05] MEDS: oxyCODONE-APAP 5-325MG 1 EACH TAB PO PRN (18:29)
[2022-10-05] MEDS: carvediloL 12.5 MG TAB PO SCH (19:30)
[2022-10-05] MEDS: SODIUM CHLORIDE 0.9% 1,000 ML IV SCH ×2 (19:45→20:07)
[2022-10-05] MEDS: ATORVASTATIN 40 MG TAB PO SCH (21:20)
[2022-10-05] MEDS: GABAPENTIN 100 MG CAP PO SCH (21:20)
[2022-10-06] MEDS: oxyCODONE-APAP 5-325MG 1 EACH TAB PO PRN ×4 (01:06→20:45)
[2022-10-06] MEDS: VANCOMYCIN 1,500 MG in SODIUM CHLORIDE 0.9% 500 ML 500 ML IVPB SCH ×2 (02:14→15:03)
[2022-10-06] MEDS: GABAPENTIN 100 MG CAP PO SCH ×2 (08:15→20:44)
[2022-10-06] MEDS: carvediloL 12.5 MG TAB PO SCH ×2 (08:15→18:31)
[2022-10-06] MEDS: BUMETANIDE 1 MG TAB PO SCH (08:15)
[2022-10-06 10:20] LABS: HCT 33.6 % (39.6-50.0); MCH 30.7 pg (27.0-32.0); MCHC 32.7 g/dL (32.0-37.0); MCV 93.9 fL (80.0-97.0); Mean Platelet Volume 9.3 fL (9.5-12.2); NRBC Per 100 WBC 0 /100 WBCS (0.0-0.0); Platelet Count 206 X 10*3/uL (140-440); RBC 3.58 X 10*6/uL (4.40-5.60); RDW 14.5 % (11.5-14.5); WBC 11.88 X 10*3/uL (4.50-10.00)
[2022-10-06 10:37] LABS: African American GFR (CKD) 107.9 (60.0-200.0); Anion Gap 11.1 mmol/L (10.00-18.00); BUN/Creat Ratio 27.13 Ratio (12.00-20.00); Blood Urea Nitrogen 21.7 mg/dL (9.0-27.0); Calcium 8.7 mg/dL (8.7-10.3); Carbon Dioxide 25.9 mmol/L (20.0-27.5); Non-African American GFR(CKD) 93.1 (60.0-200.0)
--- NOTE | 2022-10-06 10:54 | P.GSCN ---
History of Present Illness Consult date: 10/06/22 Reason for Consult: Surgical site infection Requesting physician: Sam Smith History of present illness: Scooby is a 67 year old male who came into the ER with complaints of left groin pain, swelling and drainage. On August 26 he underwent significant intervention for aortoiliac occlusive disease. He had bilateral cutdowns, a right femoral endarterectomy and patch angioplasty and then subsequent aortobiiliac stent grafting with elongation of the stents to the right iliofemoral level. The bilateral groins were closed under direct visualization. Patient had come in around [facility] with complaints of feeling a pop in the left groin followed by some pain. He had a CT angiogram without any acute fi ndings. He was sent home at that time. He states over the last 4 days duration he started having increased swelling, pain and drainage of pus and serosanguineous fluid. He denies any fevers or chills, no nausea or vomiting. Patient was admitted for possible surgical site infection and started on IV vancomycin. Wound cultures were collected currently pending. Patient denies any chest pain, shortness of breath, nausea, vomiting and patient is currently afebrile. He had ultrasound of the left groin reporting a 5.4 x 5.0 x 4.9 cm loculated fluid collection, abscess not excluded. Patient with mild leukocytosis. Review of Systems A 14 point review systems was completed all pertinent positives and negatives as stated in the HPI. Past Medical History Past Medical History: Deep Vein Thrombosis (DVT), Myocardial Infarction (NV) Additional Past Medical History / Comment(s): arterial blockage right leg 08/22/22, NV at 39 no stenting Last Myocardial Infarction Date:: 1993 History of Any Multi-Drug Resistant Organisms: None Reported Past Surgical History: AICD, Orthopedic Surgery Additional Past Surgical History / Comment(s): knee left, pelvic fx surgery, TAVR 06/09/2022, leg stents bilateral bilat femoral endarectomy Past Anesthesia/Blood Transfusion Reactions: No Reported Reaction Type of Cardiac Device: AICD Device Placement Date:: 06/10/2022 Past Psychological History: No Psychological Hx Reported Smoking Status: Former smoker Past Alcohol Use History: Occasional Past Drug Use History: None Reported - Past Family History Father Family Medical History: Congestive Heart Failure (CHF) Mother Family Medical History: No Reported History Medications and Allergies Home Medications Medication Instructions Recorded Confirmed Type Aspirin EC [Ecotrin Low Dose] 81 mg PO DAILY 08/22/22 10/05/22 History Atorvastatin [Lipitor] 40 mg PO HS 09/10/22 10/05/22 History Bumetanide [BUMEX] 1 mg PO DAILY 09/10/22 10/05/22 History Clopidogrel [Plavix] 75 mg PO DAILY 10/05/22 10/05/22 History Gabapentin [Neurontin] 100 mg PO BID 10/05/22 10/05/22 History Potassium Chloride [Potassium 10 meq PO DAILY 10/05/22 10/05/22 History Chloride ER] carvediloL [Coreg] 12.5 mg PO BID 10/05/22 10/05/22 History Allergies Allergy/AdvReac Type Severity Reaction Status Date / Time No Known Allergies Allergy Verified 10/05/22 12:33 Surgical - Exam Vital Signs Temp Pulse Resp BP Pulse Ox 97.5 F L 82 16 75/57 99 10/05/22 11:52 10/05/22 11:52 10/05/22 11:52 10/05/22 11:52 10/05/22 11:52 General appearance: The patient is alert, oriented, appears in no acute distress. HET: Head is normocephalic and atraumatic. Pupils are equal and reactive. Neck: Supple. Heart: Regular. Lungs: Equal expansion, normal respiratory effort. Abdomen: Soft, nontender, nondistended. Extremities: Left groin with swelling, firmness with serosanguineous drainage at incision site with tenderness to palpation. Bilateral lower extremities warm to touch with good capillary refill and good sensation. Neurological: No focal deficits. Strength and sensation are grossly intact. Results - Labs 10/06/22 06:28 10/06/22 06:28 Abnormal Lab Results - Last 24 Hours (Table) 10/05/22 10/05/22 Range/Units 12:33 12:33 WBC 11.3 H (3.8-10.6) k/uL RBC 3.94 L (4.30-5.90) m/uL Hgb 11.4 L (13.0-17.5) gm/dL Hct 36.7 L (39.0-53.0) % Neutrophils # 9.4 H (1.3-7.7) k/uL Lymphocytes # 0.6 L (1.0-4.8) k/uL Sodium 136 L (137-145) mmol/L Chloride 97 L (98-107) mmol/L BUN 23 H (9-20) mg/dL Glucose 107 H (74-99) mg/dL Microbiology - Last 24 Hours (Table) 10/05/22 18:40 Gram Stain - Preliminary Groin Wound Culture - Preliminary 10/05/22 18:40 Anaerobic Culture - Preliminary Groin Diabetes panel 10/05/22 Range/Units 12:33 Sodium 136 L (137-145) mmol/L Potassium 4.2 (3.5-5.1) mmol/L Chloride 97 L (98-107) mmol/L Carbon Dioxide 29 (22-30) mmol/L BUN 23 H (9-20) mg/dL Creatinine 0.89 (0.66-1.25) mg/dL Glucose 107 H (74-99) mg/dL Calcium 8.8 (8.4-10.2) mg/dL Calcium panel 10/05/22 Range/Units 12:33 Calcium 8.8 (8.4-10.2) mg/dL Pituitary panel 10/05/22 Range/Units 12:33 Sodium 136 L (137-145) mmol/L Potassium 4.2 (3.5-5.1) mmol/L Chloride 97 L (98-107) mmol/L Carbon Dioxide 29 (22-30) mmol/L BUN 23 H (9-20) mg/dL Creatinine 0.89 (0.66-1.25) mg/dL Glucose 107 H (74-99) mg/dL Calcium 8.8 (8.4-10.2) mg/dL Adrenal panel 10/05/22 Range/Units 12:33 Sodium 136 L (137-145) mmol/L Potassium 4.2 (3.5-5.1) mmol/L Chloride 97 L (98-107) mmol/L Carbon Dioxide 29 (22-30) mmol/L BUN 23 H (9-20) mg/dL Creatinine 0.89 (0.66-1.25) mg/dL Glucose 107 H (74-99) mg/dL Calcium 8.8 (8.4-10.2) mg/dL Assessment and Plan Assessment: 1. Left groin swelling/possible abscess 2. Recent intervention for aortoiliac occlusive disease Plan: 1. Nothing by mouth after midnight 2. Continue to hold Plavix 3. Patient scheduled for surgical incision and drainage with possible wound VAC placement, deep tissue cultures 4. Continue with antibiotics per primary medicine team Thank you for this consultation, we will continue to follow. The impression and plan of care has been dictated as directed. I performed a history and examination of this patient, discussed the same with the dictator. I agree with the dictator's note ,documented as a scribe. Any additional findings or plans will be noted.
[2022-10-06] MEDS: SODIUM CHLORIDE 0.9% 1,000 ML IV SCH (14:21)
--- NOTE | 2022-10-06 14:27 | P.PN ---
Subjective Progress Note Date: 10/06/22 Patient is a 67-year-old male with PMH of CAD, PAD, hypertension, history of AICD placement who presents the ED for left-sided groin swelling and redness. Patient reports undergoing vascular surgery at [facility] on August 27 which involved access via bilateral femoral, bilateral cutdowns, right femoral endarterectomy and patch angioplasty, aortobiliac stent grafting with elongation of the stents to the right iliofemoral level. Patient presented to the hospital on September 10 for worsening swelling of his left groin. He was evaluated by vascular surgery and cleared for discharge. Since then, patient reports worsened swelling of his left inguinal area along with redness and serous sanguinous discharge. The symptoms are concerning which prompted him to come to the ED. In the ED, patient was noted to be hypotensive with BP of 75/57 which improved to within normal limits on recheck. CBC showed leukocytosis of 11.3 and hemoglobin of 11.4. Coagulation panel was within normal limits. CMP showed sodium 136, chloride of 97, BUN of 23 and glucose 107. Patient is admitted for treatment of cellulitis and vascular surgery consultation. Patient was seen and examined this morning. No acute events overnight. He reports nausea this morning, blames it on undercooked sausage, currently resolved. He has no other complaints. General: non toxic, no distress, appears at stated age Derm: warm, dry Head: atraumatic, normocephalic, symmetric Eyes: EOMI, no lid lag, anicteric sclera Mouth: no lip lesion, mucus membranes moist Cardiovascular: S1S2 reg, no murmur Lungs: CTA bilateral, no rhonchi, no rales , no accessory muscle use Ext: no gross muscle atrophy, no edema, no contractures, swelling of the left inguinal area with erythema and tenderness to palpation, open wound with sero sanguineous discharge Neuro: no focal neuro deficits Psych: Alert, oriented, appropriate affect #Cellulitis of the L inguinal area Patient be continued on vancomycin. Wound culture will be collected. Vascular surgery on board. Patient scheduled for surgical incision and drainage with possible wound VAC placement, deep tissue cultures tomorrow. #Normocytic anemia No obvious signs of bleeding. Given hematoma seen on CT on previous admission, will hold aspirin and Plavix. #Leukocytosis Mildly elevated with neutrophilia. Could be reactive. Continue to treat for cellulitis as above. #Normocytic anemia Appears at baseline. No signs of active bleeding. Last repeat CBC tomorrow morning. #Hypochloremic hyponatremia #Elevated BUN Probably related to use of Bumex. DC IVF and encourage hydration by mouth. Chronic conditions: CAD, PAD, hypertension, history of AICD placement Plans for OR tomorrow. NPO after midnight. Objective - Vital Signs Vital signs: Vital Signs Temp 98.3 F 10/06/22 14:17 Pulse 70 10/06/22 14:17 Resp 18 10/06/22 14:17 BP 100/47 10/06/22 14:17 Pulse Ox 99 10/06/22 14:17 FiO2 Intake & Output 10/05/22 10/06/22 10/06/22 18:59 06:59 18:59 Intake Total 118 240 Output Total 400 400 Balance 118 -400 -160 Weight 81.647 kg Intake: Oral 118 240 Output: Urine 400 400 Other: # Voids 1 2 1 - Labs CBC & Chem 7: 10/06/22 06:28 10/06/22 06:28 Labs: Abnormal Lab Results - Last 24 Hours (Table) 10/06/22 10/06/22 Range/Units 06:28 06:28 WBC 11.88 H (4.50-10.00) X 10*3/uL RBC 3.58 L (4.40-5.60) X 10*6/uL Hgb 11.0 L (13.0-17.0) g/dL Hct 33.6 L (39.6-50.0) % MPV 9.3 L (9.5-12.2) fL BUN/Creatinine Ratio 27.13 H (12.00-20.00) Ratio Microbiology - Last 24 Hours (Table) 10/05/22 18:40 Gram Stain - Preliminary Groin Wound Culture - Preliminary 10/05/22 18:40 Anaerobic Culture - Preliminary Groin
[2022-10-06] MEDS: ATORVASTATIN 40 MG TAB PO SCH (20:44)
[2022-10-06] MEDS: LACTATED RINGERS 1,000 ML IV SCH (21:16)
[2022-10-07] MEDS: VANCOMYCIN 1,500 MG in SODIUM CHLORIDE 0.9% 500 ML 500 ML IVPB SCH (02:37)
[2022-10-07] MEDS: oxyCODONE-APAP 5-325MG 1 EACH TAB PO PRN ×4 (02:45→21:43)
[2022-10-07] MEDS: carvediloL 12.5 MG TAB PO SCH ×2 (05:19→17:42)
[2022-10-07] MEDS: BUMETANIDE 1 MG TAB PO SCH (07:46)
[2022-10-07] MEDS: GABAPENTIN 100 MG CAP PO SCH ×2 (07:46→21:43)
[2022-10-07] MEDS: SODIUM CHLORIDE 0.9% 1,000 ML IV SCH (07:56)
[2022-10-07] MEDS ORDERED: VANCOMYCIN TROUGH DUE 1 EACH MISC MISCELLANE ONE (13:00)
--- NOTE | 2022-10-07 13:43 | P.PN ---
Subjective Progress Note Date: 10/07/22 Patient is a 67-year-old male with PMH of CAD, PAD, hypertension, history of AICD placement who presents the ED for left-sided groin swelling and redness. Patient reports undergoing vascular surgery at [facility] on August 27 which involved access via bilateral femoral, bilateral cutdowns, right femoral endarterectomy and patch angioplasty, aortobiliac stent grafting with elongation of the stents to the right iliofemoral level. Patient presented to the hospital on September 10 for worsening swelling of his left groin. He was evaluated by vascular surgery and cleared for discharge. Since then, patient reports worsened swelling of his left inguinal area along with redness and serous sanguinous discharge. The symptoms are concerning which prompted him to come to the ED. In the ED, patient was noted to be hypotensive with BP of 75/57 which improved to within normal limits on recheck. CBC showed leukocytosis of 11.3 and hemoglobin of 11.4. Coagulation panel was within normal limits. CMP showed sodium 136, chloride of 97, BUN of 23 and glucose 107. Patient is admitted for treatment of cellulitis and vascular surgery consultation. Patient was seen and examined this morning. No acute events overnight. He reports nausea this morning, blames it on undercooked sausage, currently resolved. He has no other complaints. General: non toxic, no distress, appears at stated age Derm: warm, dry Head: atraumatic, normocephalic, symmetric Eyes: EOMI, no lid lag, anicteric sclera Mouth: no lip lesion, mucus membranes moist Cardiovascular: S1S2 reg, no murmur Lungs: CTA bilateral, no rhonchi, no rales , no accessory muscle use Ext: no gross muscle atrophy, no edema, no contractures, swelling of the left inguinal area with erythema and tenderness to palpation, open wound with sero sanguineous discharge Neuro: no focal neuro deficits Psych: Alert, oriented, appropriate affect #Cellulitis of the L inguinal area Patient be continued on vancomycin. Wound culture shows gram negative bacilli. Vascular surgery on board. Patient scheduled for surgical incision and drainage with possible wound VAC placement, deep tissue cultures today. #Normocytic anemia No obvious signs of bleeding. Given hematoma seen on CT on previous admission, will hold aspirin and Plavix. #Leukocytosis Mildly elevated with neutrophilia. Could be reactive. Continue to treat for cellulitis as above. #Normocytic anemia Appears at baseline. No signs of active bleeding. Last repeat CBC tomorrow morning. #Hypochloremic hyponatremia #Elevated BUN Probably related to use of Bumex. DC IVF and encourage hydration by mouth. Chronic conditions: CAD, PAD, hypertension, history of AICD placement Plans for OR today. Objective - Vital Signs Vital signs: Vital Signs Temp 97.5 F L 10/07/22 07:00 Pulse 74 10/07/22 07:00 Resp 18 10/07/22 07:00 BP 130/67 10/07/22 07:00 Pulse Ox 96 10/07/22 07:00 FiO2 Intake & Output 10/06/22 10/07/22 10/07/22 18:59 06:59 18:59 Intake Total 360 1000 Output Total 400 Balance -40 1000 Intake: Intake, IV Titration 1000 Amount Vancomycin 1,500 mg In 1000 Sodium Chloride 0.9% 500 ml 500 ml @ 167 mls/hr IVPB Q12H [facility] Rx#: [id number] Oral 360 Output: Urine 400 Other: Voiding Method Toilet # Voids 1 - Labs CBC & Chem 7: 10/06/22 06:28 10/06/22 06:28 Labs: Microbiology - Last 24 Hours (Table) 10/05/22 18:40 Gram Stain - Preliminary Groin Wound Culture - Preliminary Gram Neg Bacilli 10/05/22 12:56 Blood Culture - Preliminary Blood No Growth after 24 hours 10/05/22 12:33 Blood Culture - Preliminary Blood No Growth after 24 hours
[2022-10-07] MEDS ORDERED: LACTATED RINGERS 1,000 ML IV ONE ×3 (13:50→16:24)
[2022-10-07] MEDS ORDERED: ONDANSETRON 4 MG/2 ML VIAL ONE (14:05)
[2022-10-07] MEDS ORDERED: ONDANSETRON 4 MG/2 ML VIAL IVP ONE (14:21)
[2022-10-07] MEDS: LACTATED RINGERS 1,000 ML IV SCH ×2 (14:30→15:00)
[2022-10-07] MEDS ORDERED: MIDAZOLAM 2 MG/2 ML VIAL ONE (14:54)
[2022-10-07] MEDS ORDERED: fentaNYL (PF) 50 MCG/ML 2 ML AMP ONE (14:54)
[2022-10-07] MEDS ORDERED: SUCCINYLCHOLINE CHLORIDE 200 MG/10 ML VIAL IV ONE (14:54)
[2022-10-07] MEDS ORDERED: PROPOFOL 10 MG/ML 20 ML VIAL IV ONE (14:54)
[2022-10-07] MEDS ORDERED: ROCURONIUM 10 MG/ML (5 ML VIAL) IV ONE (14:54)
[2022-10-07] MEDS ORDERED: LIDOCAINE 2% INJ 20 MG/ML (2 ML VIAL) ONE (14:54)
[2022-10-07] MEDS ORDERED: PHENYLEPHRINE-0.9% NACL SYG 1,000 MCG/10 ML SYRINGE ONE (14:54)
--- NOTE | 2022-10-07 15:55 | P.OP ---
Date of Procedure: 10/07/22 Preoperative Diagnosis: Infected left inguinal postoperative wound. Postoperative Diagnosis: Same. Procedure(s) Performed: Incision and drainage left inguinal postoperative wound. Anesthesia: RODRÍGUEZ Surgeon: Omid Martinez Estimated Blood Loss (ml): 2 Pathology: other (Culture of wound.) Condition: stable Disposition: no change Indications for Procedure: Patient is a 67-year-old male who had previously undergone open aortoiliac revascularization from a bilateral femoral cutdown approach.'s was performed for critical limb ischemia. His limb ischemia was resolved. Recently he has developed some erythema and drainage from the wound. With compression of serous fluid with a small amount of purulence is expressed. Because of this the patient is now offered incision and drainage. Operative Findings: Patient was brought the upper and placed in the supine position Mr. general inhalational anesthesia delivered by the department anesthesiology. Patient's left inguinal area sterilely prepped and draped in usual manner. The previously performed incision was sharply reopened and coagulum was expressed. No purulence per se was noted. Cultures were obtained. The coagulum was removed completely. The wound was then irrigated. The deeper tissues were reapproximated with 3-0 Vicryl. A wound VAC was then placed in the wound. The wound itself measured 6 cm x 3.5 cm in length and width and 3 cm in depth. Wound VAC was then placed to suction with good seal noted. Patient tolerated procedure well, awoke without complication and is taken to the recovery area satisfactory and stable condition. Description of Procedure: Please see above.
[2022-10-07] MEDS ORDERED: HYDROmorphone 0.5 MG/0.5 ML SYRINGE IVP ONE ×2 (16:23→17:06)
[2022-10-07] MEDS: CEFEPIME 1 GM in SODIUM CHLORIDE 0.9% 50 ML IVPB SCH (17:42)
[2022-10-07] MEDS: ATORVASTATIN 40 MG TAB PO SCH (21:43)
[2022-10-08] MEDS: CEFEPIME 1 GM in SODIUM CHLORIDE 0.9% 50 ML IVPB SCH (01:23)
[2022-10-08] MEDS: SODIUM CHLORIDE 0.9% 1,000 ML IV SCH (01:24)
[2022-10-08] MEDS: oxyCODONE-APAP 5-325MG 1 EACH TAB PO PRN ×4 (01:40→18:18)
[2022-10-08] MEDS: carvediloL 12.5 MG TAB PO SCH ×2 (06:28→17:58)
[2022-10-08] MEDS: ASPIRIN 81 MG PO SCH (09:12)
[2022-10-08] MEDS: GABAPENTIN 100 MG CAP PO SCH ×2 (09:13→20:41)
[2022-10-08] MEDS: CLOPIDOGREL 75 MG TAB PO SCH (09:13)
[2022-10-08] MEDS: POTASSIUM CHLORIDE ER 10 MEQ TAB.ER.PRT PO SCH (09:13)
[2022-10-08] MEDS: BUMETANIDE 1 MG TAB PO SCH (09:13)
--- NOTE | 2022-10-08 11:03 | P.PN ---
Subjective Progress Note Date: 10/08/22 Principal diagnosis: Infected surgical site Patient seen and examined today as a follow-up. Yesterday he underwent incision and drainage of the groin surgical site. He has a wound VAC in place with good suction. Denies any pain. He is afebrile. Initial wound culture showing Enterobacter aerogenesis. This deep tissue cultures are currently pending. Patient is currently being managed for IV antibiotics by primary medicine team currently on cefepime. Objective - Vital Signs Vital signs: Vital Signs Temp 98.1 F 10/08/22 02:41 Pulse 77 10/08/22 02:41 Resp 18 10/08/22 02:41 BP 111/65 10/08/22 02:41 Pulse Ox 90 L 10/08/22 02:41 FiO2 Intake & Output 10/07/22 10/07/22 10/08/22 06:59 18:59 06:59 Intake Total 1000 1425 Output Total 202 150 Balance 1000 1223 -150 Weight 81.647 kg Intake: IV 1425 Intake, IV Titration 1000 Amount Vancomycin 1,500 mg In 1000 Sodium Chloride 0.9% 500 ml 500 ml @ 167 mls/hr IVPB Q12H [facility] Rx#: [id number] Output: Urine 200 150 Estimated Blood Loss 2 Other: Voiding Method Toilet Toilet # Voids 2 - Exam General appearance: The patient is alert, oriented, appears in no acute distress. HET: Head is normocephalic and atraumatic. Pupils are equal and reactive. Neck: Supple without lymphadenopathy. Trachea midline. No audible carotid bruit. Heart: Regular. Lungs: Equal expansion, normal respiratory effort. Abdomen: Soft, nontender, nondistended. Extremities: Normal skin color and turgor. No cyanosis, rash, ulceration, clubbing, or edema. Left groin swelling improved, wound VAC in place with good seal and suction. Good capillary were refilled to left lower extremity, warm to the touch. Neurological: No focal deficits. Strength and sensation are grossly intact. - Labs CBC & Chem 7: 10/06/22 06:28 10/06/22 06:28 Labs: Microbiology - Last 24 Hours (Table) 10/07/22 15:40 Wound Culture - Preliminary Groin 10/07/22 15:40 Anaerobic Culture - Preliminary Groin 10/05/22 18:40 Gram Stain - Final Groin Wound Culture - Final Enterobacter aerogenes 10/05/22 12:56 Blood Culture - Preliminary Blood No Growth after 48 hours 10/05/22 12:33 Blood Culture - Preliminary Blood No Growth after 48 hours Assessment and Plan Assessment: 1. Infected left and lateral postoperative wound status post incision and drainage of wound VAC application 2. Recent intervention for aortoiliac occlusive disease Plan: 1. Continue with wound VAC; change Tuesday 2. Continue with antibiotics per recommendations from primary medicine team 3. Deep tissue cultures currently pending 4. Encourage ambulation 5. Recommend patient follow-up next week with [facility] care center 6. Follow-up with Dr. Canela as scheduled within the next 2 weeks Thank you for this consultation, we will continue to follow. The impression and plan of care has been dictated as directed. I performed a history and examination of this patient, discussed the same with the dictator. I agree with the dictator's note ,documented as a scribe. Any additional findings or plans will be noted.
--- NOTE | 2022-10-08 12:32 | P.PN ---
Subjective Progress Note Date: 10/08/22 Patient is a 67-year-old male with PMH of CAD, PAD, hypertension, history of AICD placement who presents the ED for left-sided groin swelling and redness. Patient reports undergoing vascular surgery at [facility] on August 27 which involved access via bilateral femoral, bilateral cutdowns, right femoral endarterectomy and patch angioplasty, aortobiliac stent grafting with elongation of the stents to the right iliofemoral level. Patient presented to the hospital on September 10 for worsening swelling of his left groin. He was evaluated by vascular surgery and cleared for discharge. Since then, patient reports worsened swelling of his left inguinal area along with redness and serous sanguinous discharge. The symptoms are concerning which prompted him to come to the ED. In the ED, patient was noted to be hypotensive with BP of 75/57 which improved to within normal limits on recheck. CBC showed leukocytosis of 11.3 and hemoglobin of 11.4. Coagulation panel was within normal limits. CMP showed sodium 136, chloride of 97, BUN of 23 and glucose 107. Patient is admitted for treatment of cellulitis and vascular surgery consultation. Patient was seen and examined this morning. No acute events overnight. He underwent incision and drainage left inguinal postoperative wound on 10/07. Wound culture growing Enterobacter. He has no other complaints. General: non toxic, no distress, appears at stated age Derm: warm, dry Head: atraumatic, normocephalic, symmetric Eyes: EOMI, no lid lag, anicteric sclera Mouth: no lip lesion, mucus membranes moist Cardiovascular: S1S2 reg, no murmur Lungs: CTA bilateral, no rhonchi, no rales , no accessory muscle use Ext: no gross muscle atrophy, no edema, no contractures, improved swellingand erythema of the left inguinal area with wound VAC in place Neuro: no focal neuro deficits Psych: Alert, oriented, appropriate affect #Cellulitis and abscess of the L inguinal area Wound culture growing Enterobacter. Vancomycin switched to cefepime. Infectious disease consulted. Vascular surgery on board. Discussed with case management regarding wound VAC supplies. Deep wound culture from I&D pending. #Normocytic anemia No obvious signs of bleeding. Given hematoma seen on CT on previous admission. Restart ASA and Plavix. #Leukocytosis Mildly elevated with neutrophilia. Could be reactive. Continue to treat for cellulitis as above. #Normocytic anemia Appears at baseline. No signs of active bleeding. Last repeat CBC tomorrow morning. Resolved: Hypochloremic hyponatremia , Elevated BUN Chronic conditions: CAD, PAD, hypertension, history of AICD placement Objective - Vital Signs Vital signs: Vital Signs Temp 98 F 10/08/22 06:54 Pulse 80 10/08/22 06:54 Resp 18 10/08/22 06:54 BP 140/61 10/08/22 06:54 Pulse Ox 90 L 10/08/22 06:54 FiO2 Intake & Output 10/07/22 10/08/22 10/08/22 18:59 06:59 18:59 Intake Total 1425 60 Output Total 202 150 125 Balance 1223 -150 -65 Weight 81.647 kg Intake: IV 1425 Oral 60 Output: Urine 200 150 125 Estimated Blood Loss 2 Other: Voiding Method Toilet # Voids 2 - Labs CBC & Chem 7: 10/06/22 06:28 10/06/22 06:28 Labs: Microbiology - Last 24 Hours (Table) 10/07/22 15:40 Wound Culture - Preliminary Groin 10/07/22 15:40 Anaerobic Culture - Preliminary Groin 10/05/22 18:40 Gram Stain - Final Groin Wound Culture - Final Enterobacter aerogenes 10/05/22 12:56 Blood Culture - Preliminary Blood No Growth after 48 hours 10/05/22 12:33 Blood Culture - Preliminary Blood No Growth after 48 hours
[2022-10-08] MEDS ORDERED: CEFEPIME 2 GM in SODIUM CHLORIDE 0.9% 100 ML IVPB SCH (16:00)
[2022-10-08] MEDS ORDERED: CEFEPIME 2 GM in SODIUM CHLORIDE 0.9% 50 ML IVPB SCH (16:00)
[2022-10-08] MEDS: LACTATED RINGERS 1,000 ML IV SCH (17:58)
[2022-10-08] MEDS: ATORVASTATIN 40 MG TAB PO SCH (20:41)
[2022-10-08] MEDS: CEFEPIME 2 GM in SODIUM CHLORIDE 0.9% 100 ML IVPB SCH (20:41)
--- NOTE | 2022-10-08 21:26 | P.CONS ---
History of Present Illness - Reason for Consult Consult date: 10/08/22 abscess Requesting physician: Noam Felipe - Chief Complaint left groin pain drainage x days - History of Present Illness Patient is a 67-year-old male with a past medical history significant for aortic iliac occlusive disease in this patient who is status post bilateral cutdowns right femoral endarterectomy and patch angioplasty and aortic biiliac stent grafting and the procedure completed on 08/26/2022 patient subsequently presented to the hospital concerning for pain to the left groin area and patient did have a CT angiogram without any acute findings patient is presenting back to the hospital on 10/06/2022 concerning for increasing pain swelling drainage from the left groin area patient on presentation to the hospital was afebrile and no fever has been recorded subsequently patient did have elevated white count patient was evaluated by vascular surgery and the patient was taken to the OR on 10/07/2022 status post I&D of the left groin wound and drainage of pus application of wound VAC initial cultures are currently growing Enterobacter w ith the OR cultures currently pending infectious disease was consulted for further management of antibiotic therapy. On today's evaluation that is 10/08/2022 the patient denies having any fever or any chills has been complaining of pain to the left groin area more of a dull aching 5-6 out of 10 and no radiation patient pain has improved with the pain medication patient denies having any chest pain or shortness of breath or cough no nausea no vomiting and no diarrhea Review of Systems Positive point has been mentioned in the HPI rest of the systems are negative Past Medical History Past Medical History: Deep Vein Thrombosis (DVT), Myocardial Infarction (GA) Additional Past Medical History / Comment(s): arterial blockage right leg 08/22/22, GA at 39 no stenting Last Myocardial Infarction Date:: 1993 History of Any Multi-Drug Resistant Organisms: None Reported Past Surgical History: AICD, Orthopedic Surgery Additional Past Surgical History / Comment(s): knee left, pelvic fx surgery, TAVR 06/09/2022, leg stents bilateral bilat femoral endarectomy Past Anesthesia/Blood Transfusion Reactions: No Reported Reaction Type of Cardiac Device: AICD Device Placement Date:: 06/10/2022 Past Psychological History: No Psychological Hx Reported Smoking Status: Former smoker Past Alcohol Use History: Occasional Past Drug Use History: None Reported - Past Family History Father Family Medical History: Congestive Heart Failure (CHF) Mother Family Medical History: No Reported History Medications and Allergies Home Medications Medication Instructions Recorded Confirmed Type Aspirin EC [Ecotrin Low Dose] 81 mg PO DAILY 08/22/22 10/05/22 History Atorvastatin [Lipitor] 40 mg PO HS 09/10/22 10/05/22 History Bumetanide [BUMEX] 1 mg PO DAILY 09/10/22 10/05/22 History Clopidogrel [Plavix] 75 mg PO DAILY 10/05/22 10/05/22 History Gabapentin [Neurontin] 100 mg PO BID 10/05/22 10/05/22 History Potassium Chloride [Potassium 10 meq PO DAILY 10/05/22 10/05/22 History Chloride ER] carvediloL [Coreg] 12.5 mg PO BID 10/05/22 10/05/22 History Allergies Allergy/AdvReac Type Severity Reaction Status Date / Time No Known Allergies Allergy Verified 10/05/22 12:33 Physical Exam Vitals: Vital Signs Temp Pulse Resp BP Pulse Ox 10/08/22 06:54 98 F 80 18 140/61 90 L 10/08/22 02:41 98.1 F 77 18 111/65 90 L 10/07/22 19:09 98.0 F 86 17 103/61 91 L 10/07/22 18:27 86 16 161/69 95 10/07/22 18:05 90 16 177/73 93 L 10/07/22 17:50 89 18 158/76 92 L 10/07/22 17:35 93 18 165/76 94 L 10/07/22 17:24 76 18 140/79 95 10/07/22 17:08 73 16 143/71 94 L 10/07/22 16:53 73 16 165/76 95 10/07/22 16:38 88 16 142/71 94 L 10/07/22 16:23 87 16 158/68 94 L 10/07/22 16:08 85 16 169/71 96 10/07/22 15:53 98.7 F 91 18 178/79 100 10/07/22 14:30 97.3 F L 74 18 148/69 98 10/07/22 13:54 77 20 169/75 96 Intake and Output 10/07/22 10/08/22 10/08/22 22:59 06:59 14:59 Intake Total 1225 60 Output Total 2 150 125 Balance 1223 -150 -65 Intake: IV 1225 Oral 60 Output: Urine 150 125 Estimated Blood Loss 2 Other: Voiding Method Toilet # Voids 1 2 Weight 81.647 kg GENERAL DESCRIPTION: elderly male lying in bed, no distress. No tachypnea or accessory muscle of respiration use. HEENT: Shows Pallor , no scleral icterus. Oral mucous membrane is dry. No pharyngeal erythema or thrush NECK: Trachea central, no thyromegaly. LUNGS: Unlabored breathing. Clear to auscultation anteriorly. No wheeze or crackle. HEART: S1, S2, regular rate and rhythm. No loud murmur ABDOMEN: Soft, no tenderness , guarding or rigidity, no organomegaly EXTREMITIES: No edema of feet.left groin wound is currently covered with a wound VAC with no surrounding swelling redness or any drainage SKIN: No rash, no masses palpable. NEUROLOGICAL: The patient is awake, alert, oriented x3, mood and affect normal. Results CBC & Chem 7: 10/06/22 06:28 10/06/22 06:28 Labs: Microbiology - Last 24 Hours (Table) 10/07/22 15:40 Wound Culture - Preliminary Groin 10/07/22 15:40 Anaerobic Culture - Preliminary Groin 10/05/22 18:40 Gram Stain - Final Groin Wound Culture - Final Enterobacter aerogenes 10/05/22 12:56 Blood Culture - Preliminary Blood No Growth after 48 hours 10/05/22 12:33 Blood Culture - Preliminary Blood No Growth after 48 hours Assessment and Plan (1) Surgical site infection Current Visit: Yes Status: Acute Code(s): T81.49XA - INFECTION FOLLOWING A PROCEDURE, OTHER SURGICAL SITE, INIT SNOMED Code(s): 24319646 Plan: 1patient with a left groin wound status post exploration and drainage of the abscess with the initial culture currently growing Enterobacter and deep OR cultures are currently pending 2we will increase the dose of cefepime 2 g every 8 hours 3we will evaluate the wound at the time of wound VAC changed tomorrow to det ermine his discharge antibiotics 4continue with a wound VAC to the left groin at this point We will follow on clinical condition and cultures to further adjust medication if needed Thank you for this consultation will follow this patient with you Time with Patient: Less than 30
[2022-10-09] MEDS: oxyCODONE-APAP 5-325MG 1 EACH TAB PO PRN ×4 (01:22→19:00)
[2022-10-09] MEDS: CEFEPIME 2 GM in SODIUM CHLORIDE 0.9% 100 ML IVPB SCH ×3 (05:20→20:55)
[2022-10-09] MEDS: carvediloL 12.5 MG TAB PO SCH ×2 (05:21→17:34)
[2022-10-09] MEDS: ASPIRIN 81 MG PO SCH (09:20)
[2022-10-09] MEDS: BUMETANIDE 1 MG TAB PO SCH (09:20)
[2022-10-09] MEDS: GABAPENTIN 100 MG CAP PO SCH ×2 (09:20→20:31)
[2022-10-09] MEDS: POTASSIUM CHLORIDE ER 10 MEQ TAB.ER.PRT PO SCH (09:21)
[2022-10-09] MEDS: CLOPIDOGREL 75 MG TAB PO SCH (09:21)
[2022-10-09 11:24] LABS: Basophils # (A) 0.05 X 10*3/uL (0.00-0.10); Basophils % (A) 0.8 %; Eosinophils # (A) 0.34 X 10*3/uL (0.04-0.35); Eosinophils % (A) 5.7 %; HCT 30.1 % (39.6-50.0); HGB 10.1 g/dL (13.0-17.0); Immature Grans, Automated 0.3 %; Lymphocytes # (A) 0.83 X 10*3/uL (0.90-5.00); Lymphocytes % (A) 13.8 %; MCH 30.8 pg (27.0-32.0); MCHC 33.6 g/dL (32.0-37.0); MCV 91.8 fL (80.0-97.0); Mean Platelet Volume 9.3 fL (9.5-12.2); Monocytes # (A) 0.95 X 10*3/uL (0.20-1.00); Monocytes % (A) 15.8 %; NRBC Per 100 WBC 0 /100 WBCS (0.0-0.0); Neutrophils # (A) 3.82 X 10*3/uL (1.80-7.70); Neutrophils % (A) 63.6 %; Platelet Count 250 X 10*3/uL (140-440); RBC 3.28 X 10*6/uL (4.40-5.60); RDW 13.8 % (11.5-14.5); WBC 6.01 X 10*3/uL (4.50-10.00)
[2022-10-09 11:25] LABS: RBC Morphology NORMAL
[2022-10-09 11:40] LABS: African American GFR (CKD) 113.4 (60.0-200.0); Anion Gap 10.1 mmol/L (10.00-18.00); BUN/Creat Ratio 24.86 Ratio (12.00-20.00); Blood Urea Nitrogen 17.6 mg/dL (9.0-27.0); C Reactive Protein 6.5 mg/dL (0.00-0.80); Calcium 8.5 mg/dL (8.7-10.3); Non-African American GFR(CKD) 97.9 (60.0-200.0); Potassium 3.7 mmol/L (3.5-5.5)
[2022-10-09 11:48] LABS: Erythrocyte Sedimentation Rate 28 mm/Hr (0-20)
--- NOTE | 2022-10-09 12:58 | P.PN ---
Subjective Progress Note Date: 10/09/22 Patient is a 67-year-old male with PMH of CAD, PAD, hypertension, history of AICD placement who presents the ED for left-sided groin swelling and redness. Patient reports undergoing vascular surgery at [facility] on August 27 which involved access via bilateral femoral, bilateral cutdowns, right femoral endarterectomy and patch angioplasty, aortobiliac stent grafting with elongation of the stents to the right iliofemoral level. Patient presented to the hospital on September 10 for worsening swelling of his left groin. He was evaluated by vascular surgery and cleared for discharge. Since then, patient reports worsened swelling of his left inguinal area along with redness and serous sanguinous discharge. The symptoms are concerning which prompted him to come to the ED. In the ED, patient was noted to be hypotensive with BP of 75/57 which improved to within normal limits on recheck. CBC showed leukocytosis of 11.3 and hemoglobin of 11.4. Coagulation panel was within normal limits. CMP showed sodium 136, chloride of 97, BUN of 23 and glucose 107. Patient is admitted for treatment of cellulitis and vascular surgery consultation. Patient was seen and examined this morning. No acute events overnight. He underwent incision and drainage left inguinal postoperative wound on 10/07. Wound culture growing Enterobacter. He complains of nausea and difficulty sleeping. General: non toxic, no distress, appears at stated age Derm: warm, dry Head: atraumatic, normocephalic, symmetric Eyes: EOMI, no lid lag, anicteric sclera Mouth: no lip lesion, mucus membranes moist Cardiovascular: S1S2 reg, no murmur Lungs: CTA bilateral, no rhonchi, no rales , no accessory muscle use Ext: no gross muscle atrophy, no edema, no contractures, improved swellingand erythema of the left inguinal area with wound VAC in place Neuro: no focal neuro deficits Psych: Alert, oriented, appropriate affect #Cellulitis and abscess of the L inguinal area Wound culture growing Enterobacter. Vancomycin switched to cefepime. Infectious disease consulted. Vascular surgery on board. Discussed with case management regarding wound VAC supplies. Deep wound culture from I&D pending. #Normocytic anemia No obvious signs of bleeding. Given hematoma seen on CT on previous admission. Restart ASA and Plavix. #Normocytic anemia Appears at baseline. No signs of active bleeding. Last repeat CBC tomorrow morning. Resolved: Hypochloremic hyponatremia , Elevated BUN, Leukocytosis Chronic conditions: CAD, PAD, hypertension, history of AICD placement Objective - Vital Signs Vital signs: Vital Signs Temp 97.9 F 10/09/22 07:51 Pulse 67 10/09/22 07:51 Resp 18 10/09/22 07:51 BP 128/79 10/09/22 07:51 Pulse Ox 98 10/09/22 07:51 FiO2 Intake & Output 10/08/22 10/09/22 10/09/22 18:59 06:59 18:59 Intake Total 420 100 120 Output Total 325 Balance 95 100 120 Intake: Intake, IV Titration 100 Amount Cefepime 2 gm In Sodium 100 Chloride 0.9% 100 ml @ 25 mls/hr IVPB Q8H [facility] Rx#: [id number] Oral 420 120 Output: Urine 325 Other: Voiding Method Toilet - Labs CBC & Chem 7: 10/09/22 06:15 10/09/22 06:15 Labs: Abnormal Lab Results - Last 24 Hours (Table) 10/09/22 10/09/22 Range/Units 06:15 06:15 RBC 3.28 L (4.40-5.60) X 10*6/uL Hgb 10.1 L (13.0-17.0) g/dL Hct 30.1 L (39.6-50.0) % MPV 9.3 L (9.5-12.2) fL Lymphocytes # 0.83 L (0.90-5.00) X 10*3/uL ESR 28 H (0-20) mm/Hr BUN/Creatinine Ratio 24.86 H (12.00-20.00) Ratio Calcium 8.5 L (8.7-10.3) mg/dL C-Reactive Protein 6.50 H (0.00-0.80) mg/dL Microbiology - Last 24 Hours (Table) 10/07/22 15:40 Gram Stain - Preliminary Groin Wound Culture - Preliminary Group D Enterococcus 10/05/22 18:40 Anaerobic Culture - Final Groin Anaerobic Gm Negative Bacilli 10/05/22 12:56 Blood Culture - Preliminary Blood No Growth after 72 hours 10/05/22 12:33 Blood Culture - Preliminary Blood No Growth after 72 hours
[2022-10-09] MEDS: ONDANSETRON 4 MG/2 ML VIAL IVP PRN ×2 (13:50→19:00)
--- NOTE | 2022-10-09 14:26 | P.PN ---
Subjective Progress Note Date: 10/09/22 Principal diagnosis: Left groin abscess Patient is a 67-year-old male with a past medical history significant for aortic iliac occlusive disease in this patient who is status post bilateral cutdowns right femoral endarterectomy and patch angioplasty and aortic biiliac s tent grafting and the procedure completed on 08/26/2022 patient subsequently presented to the hospital concerning for pain to the left groin area and patient did have a CT angiogram without any acute findings patient is presenting back to the hospital on 10/06/2022 concerning for increasing pain swelling drainage from the left groin area, patient is status post drainage of the abscess culture posi tive for Enterobacter. On today's evaluation that is 10/09/2022, the patient denies having any fever or any chills, the patient pain to the left groin area is currently controlled, patient denies having any chest pain or shortness of breath or cough, has been complaining of some nausea but no vomiting no abdominal pain no diarrhea Objective - Vital Signs Vital signs: Vital Signs Temp 97.9 F 10/09/22 07:51 Pulse 67 10/09/22 07:51 Resp 18 10/09/22 07:51 BP 128/79 10/09/22 07:51 Pulse Ox 98 10/09/22 07:51 FiO2 Intake & Output 10/08/22 10/09/22 10/09/22 18:59 06:59 18:59 Intake Total 420 100 120 Output Total 325 Balance 95 100 120 Intake: Intake, IV Titration 100 Amount Cefepime 2 gm In Sodium 100 Chloride 0.9% 100 ml @ 25 mls/hr IVPB Q8H [facility] Rx#: [id number] Oral 420 120 Output: Urine 325 Other: Voiding Method Toilet - Exam GENERAL DESCRIPTION: An elderly male lying in bed in no distress RESPIRATORY SYSTEM: Unlabored breathing , decreased breath sounds at bases HEART: S1 S2 regular rate and rhythm , ABDOMEN: Soft , no tenderness EXTREMITIES: Left groin wound is covered with a wound VAC - Labs CBC & Chem 7: 10/09/22 06:15 10/09/22 06:15 Labs: Abnormal Lab Results - Last 24 Hours (Table) 10/09/22 10/09/22 Range/Units 06:15 06:15 RBC 3.28 L (4.40-5.60) X 10*6/uL Hgb 10.1 L (13.0-17.0) g/dL Hct 30.1 L (39.6-50.0) % MPV 9.3 L (9.5-12.2) fL Lymphocytes # 0.83 L (0.90-5.00) X 10*3/uL ESR 28 H (0-20) mm/Hr BUN/Creatinine Ratio 24.86 H (12.00-20.00) Ratio Calcium 8.5 L (8.7-10.3) mg/dL C-Reactive Protein 6.50 H (0.00-0.80) mg/dL Microbiology - Last 24 Hours (Table) 10/07/22 15:40 Gram Stain - Preliminary Groin Wound Culture - Preliminary Group D Enterococcus 10/05/22 18:40 Anaerobic Culture - Final Groin Anaerobic Gm Negative Bacilli 10/05/22 12:56 Blood Culture - Preliminary Blood No Growth after 72 hours 10/05/22 12:33 Blood Culture - Preliminary Blood No Growth after 72 hours Assessment and Plan (1) Surgical site infection Current Visit: Yes Status: Acute Code(s): T81.49XA - INFECTION FOLLOWING A PROCEDURE, OTHER SURGICAL SITE, INIT SNOMED Code(s): 88571838 Plan: 1patient with a left groin wound status post exploration and drainage of the abscess with the initial culture currently growing Enterobacter and deep OR cultures are currently pending 2the patient to continue with cefepime 2 g every 8 hours 3 wound VAC apparently will be changed Tuesday per the nursing staff and will evaluate the wound at that point Time with Patient: Less than 30
[2022-10-09] MEDS: LACTATED RINGERS 1,000 ML IV SCH (20:26)
[2022-10-09] MEDS: ATORVASTATIN 40 MG TAB PO SCH (20:31)
[2022-10-09] MEDS: ZOLPIDEM 5 MG TAB PO PRN (21:58)
[2022-10-10] MEDS: oxyCODONE-APAP 5-325MG 1 EACH TAB PO PRN ×4 (03:03→21:12)
[2022-10-10] MEDS: CEFEPIME 2 GM in SODIUM CHLORIDE 0.9% 100 ML IVPB SCH ×2 (03:04→13:01)
[2022-10-10] MEDS: carvediloL 12.5 MG TAB PO SCH ×2 (06:07→17:18)
[2022-10-10] MEDS: ONDANSETRON 4 MG/2 ML VIAL IVP PRN ×2 (09:02→21:13)
[2022-10-10] MEDS: ASPIRIN 81 MG PO SCH (09:03)
[2022-10-10] MEDS: POTASSIUM CHLORIDE ER 10 MEQ TAB.ER.PRT PO SCH (09:03)
[2022-10-10] MEDS: CLOPIDOGREL 75 MG TAB PO SCH (09:03)
[2022-10-10] MEDS: GABAPENTIN 100 MG CAP PO SCH ×2 (09:03→21:12)
[2022-10-10] MEDS: BUMETANIDE 1 MG TAB PO SCH (09:57)
--- NOTE | 2022-10-10 12:41 | P.PN ---
Subjective Progress Note Date: 10/10/22 Patient is a 67-year-old male with PMH of CAD, PAD, hypertension, history of AICD placement who presents the ED for left-sided groin swelling and redness. Patient reports undergoing vascular surgery at [facility] on August 27 which involved access via bilateral femoral, bilateral cutdowns, right femoral endarterectomy and patch angioplasty, aortobiliac stent grafting with elongation of the stents to the right iliofemoral level. Patient presented to the hospital on September 10 for worsening swelling of his left groin. He was evaluated by vascular surgery and cleared for discharge. Since then, patient reports worsened swelling of his left inguinal area along with redness and serous sanguinous discharge. The symptoms are concerning which prompted him to come to the ED. In the ED, patient was noted to be hypotensive with BP of 75/57 which improved to within normal limits on recheck. CBC showed leukocytosis of 11.3 and hemoglobin of 11.4. Coagulation panel was within normal limits. CMP showed sodium 136, chloride of 97, BUN of 23 and glucose 107. Patient is admitted for treatment of cellulitis and vascular surgery consultation. Patient underwent I&D with deep wound culture on 10/07. Wound culture growing Enterobacter aerogenes and Enterococcus faecalis. He will likely need a wound vac and oral antibiotics on discharge. Patient was seen and examined this morning. No acute events overnight. Sleep improved with Ambien last night. He has no complaints today. General: non toxic, no distress, appears at stated age Derm: warm, dry Head: atraumatic, normocephalic, symmetric Eyes: EOMI, no lid lag, anicteric sclera Mouth: no lip lesion, mucus membranes moist Cardiovascular: S1S2 reg, no murmur Lungs: CTA bilateral, no rhonchi, no rales , no accessory muscle use Ext: no gross muscle atrophy, no edema, no contractures, improved swellingand erythema of the left inguinal area with wound VAC in place Neuro: no focal neuro deficits Psych: Alert, oriented, appropriate affect #Cellulitis and abscess of the L inguinal area Wound culture growing Enterobacter aerogenes and Enterococcus faecalis. Vancomycin switched to cefepime. Infectious disease consulted. Vascular surgery on board. Discussed with case management regarding wound VAC supplies. #Normocytic anemia No obvious signs of bleeding. Given hematoma seen on CT on previous admission. Restart ASA and Plavix. #Normocytic anemia Appears at baseline. No signs of active bleeding. Last repeat CBC tomorrow morning. Resolved: Hypochloremic hyponatremia , Elevated BUN, Leukocytosis Chronic conditions: CAD, PAD, hypertension, history of AICD placement Anticipate DC home after supplies for wound vac arranged. Objective - Vital Signs Vital signs: Vital Signs Temp 97.7 F 10/10/22 07:49 Pulse 68 10/10/22 07:49 Resp 14 10/10/22 07:49 BP 133/70 10/10/22 07:49 Pulse Ox 94 L 10/10/22 07:49 FiO2 Intake & Output 10/09/22 10/10/22 10/10/22 18:59 06:59 18:59 Intake Total 240 118 Output Total 300 500 Balance -60 -500 118 Intake: Oral 240 118 Output: Urine 300 500 Other: Voiding Method Toilet # Voids 2 - Labs CBC & Chem 7: 10/09/22 06:15 10/09/22 06:15 Labs: Microbiology - Last 24 Hours (Table) 10/07/22 15:40 Gram Stain - Final Groin Wound Culture - Final Enterococcus faecalis 10/07/22 15:40 Anaerobic Culture - Preliminary Groin 10/05/22 12:56 Blood Culture - Preliminary Blood No Growth after 96 hours 10/05/22 12:33 Blood Culture - Preliminary Blood No Growth after 96 hours
--- NOTE | 2022-10-10 15:57 | P.PN ---
Subjective Progress Note Date: 10/10/22 Principal diagnosis: Left groin abscess Patient is a 67-year-old male with a past medical history significant for aortic iliac occlusive disease in this patient who is status post bilateral cutdowns right femoral endarterectomy and patch angioplasty and aortic biiliac s tent grafting and the procedure completed on 08/26/2022 patient subsequently presented to the hospital concerning for pain to the left groin area and patient did have a CT angiogram without any acute findings patient is presenting back to the hospital on 10/06/2022 concerning for increasing pain swelling drainage from the left groin area, patient is status post drainage of the abscess culture posi tive for Enterobacter. On today's evaluation that is 10/10/2022, the patient remains to be afebrile, the patient pain to the left groin area has decreased in intensity, patient denies having any chest pain or shortness of breath or cough, the patient has been complaining of some nausea but improved with Zofran, no vomiting no abdominal pain no diarrhea Objective - Vital Signs Vital signs: Vital Signs Temp 97.7 F 10/10/22 07:49 Pulse 68 10/10/22 07:49 Resp 14 10/10/22 07:49 BP 133/70 10/10/22 07:49 Pulse Ox 94 L 10/10/22 07:49 FiO2 Intake & Output 10/09/22 10/10/22 10/10/22 18:59 06:59 18:59 Intake Total 240 118 Output Total 300 500 Balance -60 -500 118 Intake: Oral 240 118 Output: Urine 300 500 Other: Voiding Method Toilet # Voids 2 - Exam GENERAL DESCRIPTION: An elderly male lying in bed in no distress RESPIRATORY SYSTEM: Unlabored breathing , decreased breath sounds at bases HEART: S1 S2 regular rate and rhythm , ABDOMEN: Soft , no tenderness EXTREMITIES: Left groin wound is covered with a wound VAC - Labs CBC & Chem 7: 10/09/22 06:15 10/09/22 06:15 Labs: Microbiology - Last 24 Hours (Table) 10/05/22 12:33 Blood Culture - Preliminary Blood No Growth after 120 hours 10/07/22 15:40 Gram Stain - Final Groin Wound Culture - Final Enterococcus faecalis 10/07/22 15:40 Anaerobic Culture - Preliminary Groin 10/05/22 12:56 Blood Culture - Preliminary Blood No Growth after 96 hours Assessment and Plan (1) Surgical site infection Current Visit: Yes Status: Acute Code(s): T81.49XA - INFECTION FOLLOWING A PROCEDURE, OTHER SURGICAL SITE, INIT SNOMED Code(s): 73906510 Plan: 1patient with a left groin wound status post exploration and drainage of the abscess with the initial culture currently growing Enterobacter and deep OR cultures did grew Enterococcus faecalis 2 the patient wound VAC apparently will be changed Tuesday per the nursing staff and will evaluate the wound at that point, for now continue with the wound VAC 3-we will discontinue cefepime and start the patient on Zosyn to cover for both Enterobacter as well as enterococcus and anaerobes Time with Patient: Less than 30
[2022-10-10] MEDS: PIPERACILLIN-TAZOBACTAM 3.375 GM in SODIUM CHLORIDE 0.9% 100 ML IVPB SCH (17:18)
[2022-10-10] MEDS: LACTATED RINGERS 1,000 ML IV SCH (19:51)
[2022-10-10] MEDS: ATORVASTATIN 40 MG TAB PO SCH (21:12)
[2022-10-10] MEDS: ZOLPIDEM 5 MG TAB PO PRN (21:13)
[2022-10-11] MEDS: PIPERACILLIN-TAZOBACTAM 3.375 GM in SODIUM CHLORIDE 0.9% 100 ML IVPB SCH ×4 (00:50→23:06)
[2022-10-11] MEDS: oxyCODONE-APAP 5-325MG 1 EACH TAB PO PRN ×3 (05:08→21:14)
[2022-10-11] MEDS: ONDANSETRON 4 MG/2 ML VIAL IVP PRN ×2 (05:09→14:54)
[2022-10-11] MEDS: carvediloL 12.5 MG TAB PO SCH ×2 (06:02→18:04)
[2022-10-11] MEDS: CLOPIDOGREL 75 MG TAB PO SCH (09:21)
[2022-10-11] MEDS: POTASSIUM CHLORIDE ER 10 MEQ TAB.ER.PRT PO SCH (09:21)
[2022-10-11] MEDS: ASPIRIN 81 MG PO SCH (09:21)
[2022-10-11] MEDS: BUMETANIDE 1 MG TAB PO SCH (09:21)
[2022-10-11] MEDS: GABAPENTIN 100 MG CAP PO SCH ×2 (09:22→21:14)
--- NOTE | 2022-10-11 10:19 | P.PN ---
Subjective Progress Note Date: 10/11/22 Patient is evaluated today status post incision and drainage of left inguinal abscess. He voices no complaints Objective - Vital Signs Vital signs: Vital Signs Temp 97.7 F 10/11/22 08:00 Pulse 65 10/11/22 08:00 Resp 17 10/11/22 08:00 BP 147/66 10/11/22 08:00 Pulse Ox 93 L 10/11/22 08:00 FiO2 Intake & Output 10/10/22 10/11/22 10/11/22 18:59 06:59 18:59 Intake Total 118 118 Output Total 300 300 Balance -182 118 -300 Intake: Oral 118 118 Output: Urine 300 300 Other: Voiding Method Toilet Urinal # Bowel Movements 0 - Exam The wound VAC remains in place. There is no surrounding cellulitic reaction noted. The area is nontender to palpation. - Labs CBC & Chem 7: 10/09/22 06:15 10/09/22 06:15 Labs: Microbiology - Last 24 Hours (Table) 10/05/22 12:56 Blood Culture - Preliminary Blood No Growth after 120 hours 10/05/22 12:33 Blood Culture - Preliminary Blood No Growth after 120 hours Assessment and Plan Assessment: #1 status post incision and drainage left inguinal abscess. Plan: #1: Patient is surgically stable for discharge once home wound VAC arrangements have been completed. #2: Would like to see the patient in follow-up care in the office in 7-10 days. Time with Patient: Less than 30
--- NOTE | 2022-10-11 13:37 | P.PN ---
Subjective Progress Note Date: 10/11/22 Principal diagnosis: Left groin abscess Patient is a 67-year-old male with a past medical history significant for aortic iliac occlusive disease in this patient who is status post bilateral cutdowns right femoral endarterectomy and patch angioplasty and aortic biiliac s tent grafting and the procedure completed on 08/26/2022 patient subsequently presented to the hospital concerning for pain to the left groin area and patient did have a CT angiogram without any acute findings patient is presenting back to the hospital on 10/06/2022 concerning for increasing pain swelling drainage from the left groin area, patient is status post drainage of the abscess culture posi tive for Enterobacter. On today's evaluation that is 10/11/2022, the patient continues to be afebrile, the patient pain to the left groin area is currently controlled, patient denies having any chest pain or shortness of breath or cough, no further nausea or vomiting no abdominal pain no diarrhea Objective - Vital Signs Vital signs: Vital Signs Temp 97.7 F 10/11/22 08:00 Pulse 65 10/11/22 08:00 Resp 17 10/11/22 08:00 BP 147/66 10/11/22 08:00 Pulse Ox 93 L 10/11/22 08:00 FiO2 Intake & Output 10/10/22 10/11/22 10/11/22 18:59 06:59 18:59 Intake Total 118 118 Output Total 300 300 Balance -182 118 -300 Intake: Oral 118 118 Output: Urine 300 300 Other: Voiding Method Toilet Urinal # Bowel Movements 0 - Exam GENERAL DESCRIPTION: An elderly male lying in bed in no distress RESPIRATORY SYSTEM: Unlabored breathing , decreased breath sounds at bases HEART: S1 S2 regular rate and rhythm , ABDOMEN: Soft , no tenderness EXTREMITIES: Left groin wound base looks clean with no slough tissue no surrounding redness or drainage - Labs CBC & Chem 7: 10/09/22 06:15 10/09/22 06:15 Labs: Microbiology - Last 24 Hours (Table) 10/05/22 12:56 Blood Culture - Preliminary Blood No Growth after 120 hours 10/05/22 12:33 Blood Culture - Preliminary Blood No Growth after 120 hours Assessment and Plan (1) Surgical site infection Current Visit: Yes Status: Acute Code(s): T81.49XA - INFECTION FOLLOWING A PROCEDURE, OTHER SURGICAL SITE, INIT SNOMED Code(s): 22697533 Plan: 1patient with a left groin wound status post exploration and drainage of the abscess with the initial culture currently growing Enterobacter and deep OR cultures did grew Enterococcus faecalis 2 the patient wound VAC apparently will be changed Tuesday per the nursing staff and will evaluate the wound at that point, for now continue with the wound VAC 3-patient to continue with Zosyn to cover for both Enterobacter as well as enterococcus and anaerobes however plan to finish therapy with oral antibiotics Augmentin and Cipro Time with Patient: Less than 30
--- NOTE | 2022-10-11 14:33 | P.PN ---
Subjective Progress Note Date: 10/11/22 Hospital course: Patient is a very pleasant 67-year-old male with past medical history of CAD, PAD, hypertension, and AICD placement. He presented to the emergency department on 10/05/22 with a chief complaint of left-sided groin pain, swelling and redness. Patient reported that he recently underwent vascular surgery at [facility] on 08/27/22 which involved access via bilateral femoral, bilateral cutdowns, right femoral endarterectomy and patch angioplasty, aortobiliac stent grafting with elongation of the stents to the right iliofemoral level. Patient presented to the hospital on 09/10/22 for worsening swelling of his left groin and was evaluated by vascular surgery and cleared for discharge at that time. Since then, patient reported he experienced continued worsening swelling of his left inguinal area along with redness and and then developed serous sanguinous discharge prompting him to return to the emergency department for reevaluation. In the ED, patient underwent full evaluation. He was initially noted to be hypotensive with BP of 75/57 which improved to within normal limits on recheck. Labs personally reviewed and CBC revealed l eukocytosis of 11.3 and hemoglobin of 11.4. Coagulation panel was within normal limits. CMP showed sodium 136, chloride of 97, BUN of 23 and glucose 107. Patient was started on IV antibiotic vancomycin and admitted for treatment of cellulitis under our services with vascular surgery consultation. Patient was evaluated by vascular surgeon and underwent I&D with deep wound culture on 10/07/22. Wound culture positive for Enterobacter aerogenes and Enterococcus faecalis. Antibiotics changed to Zosyn at this time. Plans for wound vac and oral antibiotics Augmentin and Cipro on discharge. Physical examination: Patient was seen and examined at bedside this morning. Patient reports he is anticipating discharge home and plan is for discharge home once arrangements can be made for wound VAC. Patient reports pain is controlled at this time and eric es having any complaints. He remains on IV antibiotic Zosyn. Anticipate discharge within the next 24 hours once supplies for wound VAC can be obtained. General: non toxic, no distress, appears at stated age Derm: warm, dry. Wound VAC in place left groin. Head: atraumatic, normocephalic, symmetric Eyes: EOMI, no lid lag, anicteric sclera Mouth: no lip lesion, mucus membranes moist Cardiovascular: S1S2 reg, no murmur, positive posterior tibial pulse bilateral, Lungs: CTA bilateral, no rhonchi, no rales , no accessory muscle use Abdominal: soft, nontender to palpation, no guarding, no appreciable organomegaly Ext: no gross muscle atrophy, no edema, no contractures Neuro: CN II-XI grossly intact, no focal neuro deficits Psych: Alert, oriented, appropriate affect Assessment and plan of care: Cellulitis with abscess of the Left inguinal area Status post incision and drainage with deep wound culture on 10/07/22 -Ultrasound left groin showing a loculated fluid collection measuring 5.4 x 5.0 x 4.9 cm, reported by radiologist as being persistent but slightly smaller in size when compared to CT completed 09/10/22 -Wound culture growing Enterobacter aerogenes and Enterococcus faecalis. -Vancomycin discontinued and patient started on Zosyn per culture and sensitivity reports. -Infectious disease following recommending continuation of IV antibiotic Zosyn with plan for discharge home on oral antibiotics Augmentin and Cipro -Vascular surgery on board. Discussed with case management regarding wound VAC supplies. Normocytic anemia -No obvious signs of bleeding. -Ultrasound left groin showing a loculated fluid collection measuring 5.4 x 5.0 x 4.9 cm, reported by radiologist as being persistent but slightly smaller in size when compared to CT completed 09/10/22 -Given hematoma was seen on CT completed 09/10/22 and was reported to be slightly smaller in size, aspirin and Plavix were restarted. Resolved: Hypochloremic hyponatremia , Elevated BUN, Leukocytosis Chronic conditions: CAD, PAD, hypertension, history of AICD placement -Home medications reviewed and patient to continue current medication regimen with aspirin, Plavix, atorvastatin, gabapentin, and Bumex. CODE STATUS: Full code DVT prophylaxis: SCDs Discussed with: Patient and RN Anticipated discharge date: Anticipate DC home after supplies for wound vac arranged. Anticipated discharge place: Home with home care A total of 35 minutes was spent on the care of this complex patient more than 50% of the time was spent in counseling and care coordination. Clarke Shabazz NP rendered care for this patient independently, reviewed the findings and plan as documented in the note above. I did not physically speak with or examine the patient on this date. Objective - Vital Signs Vital signs: Vital Signs Temp 98.0 F 10/11/22 05:07 Pulse 72 10/11/22 05:07 Resp 17 10/11/22 02:33 BP 138/70 10/11/22 05:07 Pulse Ox 93 L 10/11/22 05:07 FiO2 Intake & Output 10/10/22 10/11/22 10/11/22 18:59 06:59 18:59 Intake Total 118 118 Output Total 300 Balance -182 118 Intake: Oral 118 118 Output: Urine 300 Other: Voiding Method Toilet Urinal # Bowel Movements 0 - Labs CBC & Chem 7: 10/09/22 06:15 10/09/22 06:15 Labs: Microbiology - Last 24 Hours (Table) 10/05/22 12:56 Blood Culture - Preliminary Blood No Growth after 120 hours 10/05/22 12:33 Blood Culture - Preliminary Blood No Growth after 120 hours
[2022-10-11] MEDS: ATORVASTATIN 40 MG TAB PO SCH (21:14)
[2022-10-11] MEDS: ZOLPIDEM 5 MG TAB PO PRN (21:47)
[2022-10-11] MEDS: LACTATED RINGERS 1,000 ML IV SCH (23:06)
[2022-10-12] MEDS: oxyCODONE-APAP 5-325MG 1 EACH TAB PO PRN ×2 (02:25→14:40)
[2022-10-12] MEDS: carvediloL 12.5 MG TAB PO SCH (06:28)
[2022-10-12] MEDS: GABAPENTIN 100 MG CAP PO SCH (07:50)
[2022-10-12] MEDS: ASPIRIN 81 MG PO SCH (07:50)
[2022-10-12] MEDS: PIPERACILLIN-TAZOBACTAM 3.375 GM in SODIUM CHLORIDE 0.9% 100 ML IVPB SCH (07:50)
[2022-10-12] MEDS: BUMETANIDE 1 MG TAB PO SCH (07:50)
[2022-10-12] MEDS: CLOPIDOGREL 75 MG TAB PO SCH (07:50)
[2022-10-12] MEDS: POTASSIUM CHLORIDE ER 10 MEQ TAB.ER.PRT PO SCH (07:50)
[2022-10-12] MEDS: ONDANSETRON 4 MG/2 ML VIAL IVP PRN (08:54)
--- NOTE | 2022-10-12 15:40 | P.DS ---
Providers Date of admission: 10/07/22 14:44 Expected date of discharge: 10/12/22 Attending physician: Oc Solano MD Consults: 10/05/22 13:18 Consult Physician Routine Consulting Provider: Omid Martinez Consult Reason/Comments: surgical site infection Do you want consulting provider notified?: Yes 10/08/22 07:58 Consult Physician Routine Consulting Provider: Kulwinder Oquendo Consult Reason/Comments: abscess Do you want consulting provider notified?: Yes Primary care physician: [facility] Course: Discharge Diagnosis: Enterobacter aerogenes and Enterococcus faecalis Cellulitis with abscess of the Left inguinal area. Wound culture growing Enterobacter aerogenes and Enterococcus faecalis. Patient received course of IV antibiotics Zosyn and was discharged home on oral antibiotics Augmentin and Cipro. Patient discharged home with wound VAC in place and was discharged home with [facility]. Pat ient to follow up outpatient with PCP, infectious disease for antibiotic management, wound care center, and vascular surgery. Status post incision and drainage with deep wound culture on 10/07/22. Normocytic anemia. No obvious signs of bleeding. Ultrasound left groin showing a loculated fluid collection measuring 5.4 x 5.0 x 4.9 cm, reported by radiologist as being persistent but slightly smaller in size when compared to CT completed 09/10/22 Given hematoma was seen on CT completed 09/10/22 and was reported to be slightly smaller in size, aspirin and Plavix were restarted. Hypochloremic hyponatremia, resolved Prerenal azotemia, resolved Leukocytosis, resolved Chronic conditions: CAD, PAD, hypertension, history of AICD placement. Patient to continue current medication regimen with aspirin, Plavix, atorvastatin, gabapentin, and Bumex. Hospital Course: Patient is a very pleasant 67-year-old male with past medical history of CAD, PAD, hypertension, and AICD placement. He presented to the emergency department on 10/05/22 with a chief complaint of left-sided groin pain, swelling and redness. Patient reported that he recently underwent vascular surgery at [facility] on 08/27/22 which involved access via bilateral femoral, bilateral cutdowns, right femoral endarterectomy and patch angioplasty, aortobiliac stent grafting with elongation of the stents to the right iliofemoral level. Patient presented to the hospital on 09/10/22 for worsening swelling of his left groin and was evaluated by vascular surgery and cleared for discharge at that time. Since then, patient reported he experienced continued worsening swelling of his left inguinal area along with redness and and then developed serous sanguinous discharge prompting him to return to the emergency department for reevaluation. In the ED, patient underwent full evaluation. He was initially noted to be hypotensive with BP of 75/57 which improved to within normal limits on recheck. Labs personally reviewed and CBC revealed leukocytosis of 11.3 and hemoglobin of 11.4. Coagulation panel was within normal limits. CMP showed sodium 136, chloride of 97, BUN of 23 and glucose 107. Patient was started on IV antibiotic vancomycin and admitted for treatment of cellulitis under our services with vascular surgery consultation. Patient was evaluated by vascular surgeon and underwent I&D with deep wound culture on 10/07/22. Wound culture positive for Enterobacter aerogenes and Enterococcus faecalis. Antibiotics changed to Zosyn at this time. Arrangements have been made and patient has received delivery of wound vac and necessary supplies. Home care set up with [facility]. Patient being discharged home on oral antibiotics Augmentin and Cipro and follow up outpatient with PCP, infectious disease for antibiotic management, wound care center, and vascular surgery. Patient medically stable for discharge. Physical examination: General: non toxic, no distress, appears at stated age Derm: warm, dry. Wound VAC in place left groin. Head: atraumatic, normocephalic, symmetric Eyes: EOMI, no lid lag, anicteric sclera Mouth: no lip lesion, mucus membranes moist Cardiovascular: S1S2 reg, no murmur, positive posterior tibial pulse bilateral, Lungs: CTA bilateral, no rhonchi, no rales , no accessory muscle use Abdominal: soft, nontender to palpation, no guarding, no appreciable organomegaly Ext: no gross muscle atrophy, no edema, no contractures Neuro: CN II-XI grossly intact, no focal neuro deficits Psych: Alert, oriented, appropriate affect A total of 37 minutes of time were spent preparing this complex discharge summary. Pt was discharged on 10/12/22 at 3:38 PM. Clarke Shabazz NP rendered care for this patient independently, reviewed the findings and plan as documented in the note above. I did not physically speak with or examine the patient on this date. Patient Condition at Discharge: Stable Plan - Discharge Summary Discharge Rx Participant: No New Discharge Prescriptions: New Ciprofloxacin HCl [Cipro] 500 mg PO Q12HR 10 Days #20 tab oxyCODONE-APAP 5-325MG [Percocet 5-325 mg] 1 each PO Q4HR PRN #18 tab PRN Reason: Severe Pain (Scale 7 To 10) Amoxic-Pot Clav 875-125Mg [Augmentin 875-125] 1 tab PO Q12HR 10 Days #20 tab Continue Aspirin EC [Ecotrin Low Dose] 81 mg PO DAILY Atorvastatin [Lipitor] 40 mg PO HS carvediloL [Coreg] 12.5 mg PO BID Potassium Chloride [Potassium Chloride ER] 10 meq PO DAILY Bumetanide [BUMEX] 1 mg PO DAILY Gabapentin [Neurontin] 100 mg PO BID Clopidogrel [Plavix] 75 mg PO DAILY Discharge Medication List Aspirin EC [Ecotrin Low Dose] 81 mg PO DAILY 08/22/22 [History] Atorvastatin [Lipitor] 40 mg PO HS 09/10/22 [History] Bumetanide [BUMEX] 1 mg PO DAILY 09/10/22 [History] Clopidogrel [Plavix] 75 mg PO DAILY 10/05/22 [History] Gabapentin [Neurontin] 100 mg PO BID 10/05/22 [History] Potassium Chloride [Potassium Chloride ER] 10 meq PO DAILY 10/05/22 [History] carvediloL [Coreg] 12.5 mg PO BID 10/05/22 [History] Amoxic-Pot Clav 875-125Mg [Augmentin 875-125] 1 tab PO Q12HR 10 Days #20 tab 10/12/22 [Rx] Ciprofloxacin HCl [Cipro] 500 mg PO Q12HR 10 Days #20 tab 10/12/22 [Rx] oxyCODONE-APAP 5-325MG [Percocet 5-325 mg] 1 each PO Q4HR PRN #18 tab 10/12/22 [Rx] Follow up Appointment(s)/Referral(s): Jyoti Canela DO [STAFF PHYSICIAN] - 11/03/22 9:45 am [facility], [NON-STAFF] - 1 Week Wound Center,[facility] [NON-STAFF] - 1 Week Chet Diallo DO [Primary Care Provider] - 1-2 days Kulwinder Oquendo MD [STAFF PHYSICIAN] - 10/26/22 1:15 pm Patient Instructions/Handouts: Surgical Site Infections (DC), Wound Healing and Your Diet (DC) Activity/Diet/Wound Care/Special Instructions: Activity: As tolerated. Take breaks as needed. Diet: Heart healthy and carb consistent diet. Avoid salts, or foods with hidden salts such as canned or boxed foods and frozen dinners. Extra salt makes your heart work harder and traps the fluid in your body for longer. Special Instructions: Take all of your medications as directed and remember to keep all of your doctor's appointments and follow-up as needed. Thank you for allowing us to participate in your care, it was truly a pleasure having you for our patient!!! Patient to be discharged home with wound VAC, change Fridays Vanesa/LUCY is the wound vac provider. Call [phone] if you have questions about the wound vac or need supplies. Discharge Disposition: HOME WITH HOME HEALTH SERVICES
[2022-10-12 16:05] VITALS: BP 138/67; PULSE 76; RESP 20; TEMP 98.2
--- NOTE | 2022-10-12 16:17 | P.PN ---
Subjective Progress Note Date: 10/12/22 Principal diagnosis: Left groin abscess Patient is a 67-year-old male with a past medical history significant for aortic iliac occlusive disease in this patient who is status post bilateral cutdowns right femoral endarterectomy and patch angioplasty and aortic biiliac s tent grafting and the procedure completed on 08/26/2022 patient subsequently presented to the hospital concerning for pain to the left groin area and patient did have a CT angiogram without any acute findings patient is presenting back to the hospital on 10/06/2022 concerning for increasing pain swelling drainage from the left groin area, patient is status post drainage of the abscess culture posi tive for Enterobacter. On today's evaluation that is 10/12/2022, the patient remains to be afebrile, the patient pain to the left groin area has decreased in intensity, patient denies having any chest pain or shortness of breath or cough, no further nausea or vomiting no abdominal pain no diarrhea, overall feeling better Objective - Vital Signs Vital signs: Vital Signs Temp 97.7 F 10/12/22 07:57 Pulse 68 10/12/22 07:57 Resp 18 10/12/22 07:57 BP 155/66 10/12/22 07:57 Pulse Ox 94 L 10/12/22 07:57 FiO2 Intake & Output 10/11/22 10/12/22 10/12/22 18:59 06:59 18:59 Output Total 1100 700 800 Balance -1100 -700 -800 Output: Urine 1100 700 800 Other: Voiding Method Toilet Urinal # Voids 750 - Exam GENERAL DESCRIPTION: An elderly male lying in bed in no distress RESPIRATORY SYSTEM: Unlabored breathing , decreased breath sounds at bases HEART: S1 S2 regular rate and rhythm , ABDOMEN: Soft , no tenderness EXTREMITIES: Left groin wound covered with a wound VAC - Labs CBC & Chem 7: 10/09/22 06:15 10/09/22 06:15 Labs: Microbiology - Last 24 Hours (Table) 10/07/22 15:40 Anaerobic Culture - Final Groin 10/05/22 12:56 Blood Culture - Final Blood No Growth after 144 hours 10/05/22 12:33 Blood Culture - Final Blood No Growth after 144 hours Assessment and Plan (1) Surgical site infection Current Visit: Yes Status: Acute Code(s): T81.49XA - INFECTION FOLLOWING A PROCEDURE, OTHER SURGICAL SITE, INIT SNOMED Code(s): 83792496 Plan: 1patient with a left groin wound status post exploration and drainage of the abscess with the initial culture currently growing Enterobacter and deep OR cultures did grew Enterococcus faecalis 2 the patient wound VAC apparently will be changed Tuesday per the nursing staff and will evaluate the wound at that point, for now continue with the wound VAC 3-patient has shown clinical improvement with Zosyn to cover for both Enter obacter as well as enterococcus and anaerobes , 4-plan to finish therapy with oral Augmentin and Cipro, prescription has been sent to the pharmacy and close outpatient follow-up Time with Patient: Less than 30
== END 2022-10-12 16:51 | disposition home health service (06) | DRG 857 ==
LOC: EC 11:38 → 6NMEDSUR 13:27 → OBSVTOIN 10-07 14:44
PROVIDERS: ADMIT Student in an Organized Health Care Education/Training Program; ATTEND Student in an Organized Health Care Education/Training Program
PROC: 0Y960ZZ Drainage of Left Inguinal Region, Open Approach (ICD-10-PCS; principal; 2022-10-07 11:45)
DX: T81.42XA Infection following a procedure, deep incisional surgical site, initial encounter (principal); E87.1 Hypo-osmolality and hyponatremia; L02.214 Cutaneous abscess of groin; L03.314 Cellulitis of groin; I95.9 Hypotension, unspecified; E87.8 Other disorders of electrolyte and fluid balance, not elsewhere classified; I73.9 Peripheral vascular disease, unspecified; Z28.310 Unvaccinated for COVID-19; B96.89 Other specified bacterial agents as the cause of diseases classified elsewhere; B95.2 Enterococcus as the cause of diseases classified elsewhere; I25.2 Old myocardial infarction; I10 Essential (primary) hypertension; I25.10 Atherosclerotic heart disease of native coronary artery without angina pectoris; G47.9 Sleep disorder, unspecified; D64.9 Anemia, unspecified; Z79.82 Long term (current) use of aspirin; Z79.02 Long term (current) use of antithrombotics/antiplatelets; Z79.899 Other long term (current) drug therapy; Z87.891 Personal history of nicotine dependence; Z86.718 Personal history of other venous thrombosis and embolism; Z95.810 Presence of automatic (implantable) cardiac defibrillator; Z95.820 Peripheral vascular angioplasty status with implants and grafts; Z95.4 Presence of other heart-valve replacement
CPT/HCPCS: 36415; 80048; 80202; 85025; 85027; 85610; 85652; 85730; 86140; 87040; 87070; 87075; 87077; 87186; 87205; 96374; 99284

== ENCOUNTER → 2022-10-25 | Outpatient (CLI) | payer MEDICARE, BC ==
[2022-10-25 13:59] LABS: African American GFR (CKD) >90 (>60 ml/min/1.73 sqM); Blood Urea Nitrogen 25 mg/dL (9-20); Non-African American GFR(CKD) >90 (>60 ml/min/1.73 sqM)
--- NOTE | 2022-10-25 15:41 | CT ---
EXAMINATION TYPE: CT angio abd aorta w/Runoff CT DLP: 1775.80 mGycm, Automated exposure control for dose reduction was used. DATE OF EXAM: 10/25/2022 2:47 PM COMPARISON: CT 09/10/2022 and 08/22/2022 CLINICAL INDICATION:Male, 67 years old with history of I73.9 I74.09, aortic iliac occlusive disease. recent stents placed. TECHNIQUE: Multiple thin slice sub-millimeter images were obtained through the abdomen, pelvis, and l ower extremities after administration of contrast. 3-D reconstructed images and maximum intensity pr ojection images were obtained of the abdomen, pelvis, and lower extremities. CT Contrast: Contrast used: 120 mL of Isovue 370 without and with IV Contrast, Oral contrast used: None FINDINGS: CTA Abdomen and pelvis: No evidence of intramural hematoma on noncontrast imaging. There is distal ao rta aneurysmal dilation with mural thrombus measuring 2.6 cm. There is severe atherosclerosis of the arterial vasculature. Redemonstration of aortobiiliac stent graft which appears patent. Right externa l iliac stent graft is patent. There is mild dilation at the most distal portion of the stent graft. The [place] right common iliac artery appears occluded. The [place] left common iliac artery is patent. There is severe calcified and noncalcified plaquing along the course of the left common iliac and le ft external iliac arteries. Fluid collection seen around the common femoral arteries bilaterally have reduced in size. The origin of the superior mesenteric artery, is patent. Redemonstration of celiac axis calcified and noncalcified plaque with at least 70% stenosis. The renal arteries are patent without significant st enosis. The inferior mesenteric artery is not definitively visualized. CTA Lower extremities: Right: Patent common femoral artery with occlusion of the superficial femoral femoral artery with rec onstitution just proximal to the knee. Popliteal artery appears patent. There is diminutive appearanc e of the vessels of the right leg with the posterior tibial artery crossing the ankle. The anterior t ibial artery does not definitely cross the ankle and becomes diminutive distally. Left: The common femoral artery is patent. Superficial femoral artery is occluded extending just past its origin to the popliteal artery. The popliteal artery appears patent. There is a diminutive appea fadi of the vessels of the leg. The posterior tibial artery crosses the ankle. The left anterior tib ial artery becomes diminutive and does not definitely cross the ankle. LOWER CHEST: No evidence of focal consolidation, pneumothorax or pleural effusion. LIVER: Scattered subcentimeter probable cyst. GALLBLADDER AND BILE DUCTS: Unremarkable. PANCREAS: Unremarkable. SPLEEN: Unremarkable. ADRENAL GLANDS: Unremarkable. KIDNEYS AND URETERS: No evidence of hydronephrosis or renal calculus. The ureters are unremarkable. BLADDER: Unremarkable REPRODUCTIVE: Unremarkable. STOMACH AND BOWEL: No evidence of bowel obstruction. PERITONEUM: No evidence of pneumoperitoneum or free fluid. VASCULATURE: No evidence of aortic aneurysm. MUSCULOSKELETAL: No acute osseous abnormalities, fixation hardware in the left pelvis. Surgical repai r changes to the left knee with ACL repair. LYMPH NODES: No gross evidence for lymphadenopathy. SOFT TISSUE/ABDOMINAL WALL: Fat-containing umbilical hernia. IMPRESSION * Patent aortobiiliac stent graft. * Decrease in size of bilateral inguinal presumably postprocedural hematoma/seromas on prior. Right lower extremity: * Patent right common iliac and external iliac stent graft. Occlusion of the [place] tribe right common zafar ac and external iliac artery. * Similar Occlusion of the right superficial femoral artery from the origin with reconstitution just superior to the popliteal artery. * Posterior tibial artery crosses the right ankle. Right anterior tibial artery becomes diminutive a nd is not definitively crossing ankle. Left lower extremity: * Similar Occlusion of the left superficial femoral artery from the origin with reconstitution at th e popliteal artery. * Posterior tibial artery crosses the left ankle. Left anterior tibial artery becomes diminutive and is not definitively crossing ankle. 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
== END | disposition home or self-care (01) ==
LOC: RADCTMAIN 13:15
PROVIDERS: ATTEND Surgery
DX: I70.201 Unspecified atherosclerosis of native arteries of extremities, right leg (principal); I74.09 Other arterial embolism and thrombosis of abdominal aorta
CPT/HCPCS: 82565; 84520; 75635; 36415; Q9967

== ENCOUNTER → 2023-01-07 | Outpatient (CLI) | payer MEDICARE, BC ==
--- NOTE | 2023-01-07 11:17 | XR ---
EXAMINATION TYPE: XR chest 2V DATE OF EXAM: 01/07/2023 COMPARISON: 12/14/2021 HISTORY: Shortness of breath TECHNIQUE: Frontal and lateral views of the chest are obtained. FINDINGS: Scattered senescent parenchymal changes noted. Hyperinflation compatible with COPD. No evidence for infiltrate. No evidence for atelectasis. Heart size is stable. Mediastinal structures are stable and grossly unremarkable. No evidence for hilar prominence. Degenerative changes dorsal spine. IMPRESSION: 1. No evidence for acute pulmonary disease.
== END | disposition home or self-care (01) ==
LOC: RADXRYALE 10:59
PROVIDERS: ATTEND Nurse Practitioner Family
DX: I11.9 Hypertensive heart disease without heart failure (principal); R06.02 Shortness of breath; J90 Pleural effusion, not elsewhere classified
CPT/HCPCS: 71046